=== PATIENT | female | born 1935 | race Hispanic/Latino ===

== ENCOUNTER 2019-06-15 19:46 | Inpatient (IN) | payer OTHER ==
[2019-06-15] MEDS ORDERED: NA CHLORIDE 0.9% 1,000 ML ONE (21:54)
[2019-06-15] MEDS ORDERED: FAMOTIDINE 20 MG/2 ML VIAL IV ONE (21:54)
[2019-06-15] MEDS ORDERED: FENTANYL CITR 100 MCG/2 ML ONE (21:54)
[2019-06-15] MEDS ORDERED: ONDANSETRON 4 MG/2 ML VIAL ONE (21:54)
[2019-06-15 22:15] LABS: Absolute Lymphocytes (CBC) 0.8 K/uL (0.7-4.9); Basophils % 0.2 % (0-1.3); Hematocrit 37.8 % (36.0-45.0); Lymphocytes % 4.6 % (15.3-44.8); MPV 12.6 fL (7.6-11.3); Protime INR 1.19
[2019-06-15 22:27] LABS: Albumin 3.1 g/dL (3.4-5.0); Bilirubin Direct 0.2 mg/dL (0-0.2); Bilirubin Total 0.6 mg/dL (0.2-1.0); Magnesium 1.9 mg/dL (1.8-2.4); Potassium 4.6 mmol/L (3.5-5.1); Troponin (Emerg Dept Use Only) 0.07 ng/mL (0.0-0.045)
[2019-06-15 22:53] LABS: Blood Morphology Comment NOT SEEN (NOT SEEN); Platelet Estimate ADEQ; Urine White Blood Cell Casts OK
--- NOTE | 2019-06-15 22:56 | EDPHYS ---
Physician Documentation [facility] Name: Kayleigh Cooney Age: 84 yrs Sex: Female : 1935 Arrival Date: 06/15/2019 Time: 19:[address] Private MD: DONA Physician Narendra Guajardo HPI: 06/15 21:14 This 84 yrs old Female presents to ER via Ambulatory with complaints of shadia Nausea/Vomiting, Stiff Neck. 21:14 The patient presents to the emergency department with nausea, vomiting, diarrhea, shadia abdominal pain, of the right upper quadrant, left upper quadrant, right lower quadrant and left lower quadrant. Onset: The symptoms/episode began/occurred 2 day(s) ago. Possible causes: unknown. The symptoms are aggravated by nothing. The symptoms are alleviated by nothing. Associated signs and symptoms: Pertinent positives: abdominal pain, diarrhea, fever, nausea, vomiting. Severity of symptoms: At their worst the symptoms were mild in the emergency department the symptoms are unchanged. The patient has not experienced similar symptoms in the past. Historical: - Allergies: 20:20 No Known Allergies; aj1 - Home Meds: 20:20 None [Active]; aj1 - PMHx: 20:20 Diverticulitis; aj1 - Immunization history:: Flu vaccine is up to date. - Social history:: Smoking status: Patient/guardian denies using tobacco. - Ebola Screening: : Patient denies travel to an Ebola-affected area in the 21 days before illness onset. - Family history:: not pertinent. ROS: 21:14 Constitutional: Negative for fever, chills, and weight loss, Eyes: Negative for injury, shadia pain, redness, and discharge, ENT: Negative for injury, pain, and discharge, Neck: Negative for injury, pain, and swelling, Cardiovascular: Negative for chest pain, palpitations, and edema, Respiratory: Negative for shortness of breath, cough, wheezing, and pleuritic chest pain, Back: Negative for injury and pain, : Negative for injury, bleeding, discharge, and swelling, MS/Extremity: Negative for injury and deformity, Skin: Negative for injury, rash, and discoloration, Neuro: Negative for headache, weakness, numbness, tingling, and seizure, Psych: Negative for depression, anxiety, suicide ideation, homicidal ideation, and hallucinations, Allergy/Immunology: Negative for hives, rash, and allergies, Endocrine: Negative for neck swelling, polydipsia, polyuria, polyphagia, and marked weight changes, Hematologic/Lymphatic: Negative for swollen nodes, abnormal bleeding, and unusual bruising. 21:14 Abdomen/GI: Positive for abdominal pain, nausea, vomiting, diarrhea. Exam: 21:14 Constitutional: This is a well developed, well nourished patient who is awake, alert, shadia and in no acute distress. Head/Face: Normocephalic, atraumatic. Eyes: Pupils equal round and reactive to light, extra-ocular motions intact. Lids and lashes normal. Conjunctiva and sclera are non-icteric and not injected. Cornea within normal limits. Periorbital areas with no swelling, redness, or edema. ENT: Nares patent. No nasal discharge, no septal abnormalities noted. Tympanic membranes are normal and external auditory canals are clear. Oropharynx with no redness, swelling, or masses, exudates, or evidence of obstruction, uvula midline. Mucous membranes moist. Neck: Trachea midline, no thyromegaly or masses palpated, and no cervical lymphadenopathy. Supple, full range of motion without nuchal rigidity, or vertebral point tenderness. No Meningismus. Chest/axilla: Normal chest wall appearance and motion. Nontender with no deformity. No lesions are appreciated. Cardiovascular: Regular rate and rhythm with a normal S1 and S2. No gallops, murmurs, or rubs. Normal PMI, no JVD. No pulse deficits. Respiratory: Lungs have equal breath sounds bilaterally, clear to auscultation and percussion. No rales, rhonchi or wheezes noted. No increased work of breathing, no retractions or nasal flaring. Abdomen/GI: Soft, non-tender, with normal bowel sounds. No distension or tympany. No guarding or rebound. No evidence of tenderness throughout. Back: No spinal tenderness. No costovertebral tenderness. Full range of motion. Skin: Warm, dry with normal turgor. Normal color with no rashes, no lesions, and no evidence of cellulitis. MS/ Extremity: Pulses equal, no cyanosis. Neurovascular intact. Full, normal range of motion. Neuro: Awake and alert, GCS 15, oriented to person, place, time, and situation. Cranial nerves II-XII grossly intact. Motor strength 5/5 in all extremities. Sensory grossly intact. Cerebellar exam normal. Normal gait. Psych: Awake, alert, with orientation to person, place and time. Behavior, mood, and affect are within normal limits. 21:16 Neck: ROM/movement: is normal, no acute changes, Meningeal signs: are not present, [facility] Kernig's sign is negative, Brudzinski's sign is negative. Vital Signs: 20:20 BP 160 / 57; Pulse 103; Resp 18; Temp 98.4; Pulse Ox 96% on R/A; Weight 74.39 kg (R); [facility] Height 5 ft. 0 in. (152.40 cm) (R); Pain 8/10; 21:20 BP 160 / 57; Pulse 99; Resp 18; Pulse Ox 95% on R/A; 1 22:20 BP 154 / 54; Pulse 101; Resp 18; Pulse Ox 96% on R/A; [facility] 23:20 BP 158 / 57; Pulse 94; Resp 18; Pulse Ox 95% on R/A; [facility] 06/16 00:01 BP 115 / 57; Pulse 83; Resp 18; Pulse Ox 95% on R/A; [facility] 01:12 BP 112 / 87; Pulse 88; Resp 20; Temp 98.2; Pulse Ox 97% on R/A; [facility] 06/15 20:20 Body Mass Index 32.03 (74.39 kg, 152.40 cm) [facility] MDM: 06/15 20:[address] [facility] 21:16 Data reviewed: vital signs, nurses notes, lab test result(s), EKG, radiologic studies, [facility] CT scan, plain films. 06/15 21:13 Order name: Basic Metabolic Panel; Complete Time: 22:44 [facility] 06/15 21:13 Order name: CBC with Diff; Complete Time: 23:38 [facility] 06/15 21:13 Order name: LFT's; Complete Time: 22:44 [facility] 06/15 21:13 Order name: Magnesium; Complete Time: 22:44 [facility] 06/15 21:13 Order name: NT PRO-BNP; Complete Time: 22:44 [facility] 06/15 21:13 Order name: PT-INR; Complete Time: 22:44 [facility] 06/15 21:13 Order name: Troponin (emerg Dept Use Only); Complete Time: 22:44 [facility] 06/15 21:13 Order name: Lipase; Complete Time: 22:44 [facility] 06/15 21:13 Order name: Urine Culture [facility] 06/15 21:13 Order name: Procalcitonin; Complete Time: 23:38 [facility] 06/15 21:13 Order name: Lactate; Complete Time: 22:44 [facility] 06/15 21:13 Order name: Blood Culture Adult (2) [facility] 06/15 21:14 Order name: Stool Culture [facility] 06/15 21:14 Order name: Fecal Leukocyte Stain [facility] 06/15 21:13 Order name: XRAY Chest (1 view) [facility] 06/15 22:50 Order name: CBC Smear Scan; Complete Time: 23:38 [facility] 06/15 23:31 Order name: Comprehensive Metabolic Panel [facility] 06/15 23:31 Order name: Comprehensive Metabolic Panel [facility] 06/15 23:31 Order name: Lactate [facility] 06/15 23:31 Order name: Lactate [facility] 06/15 23:31 Order name: Magnesium [facility] 06/15 23:31 Order name: Magnesium [facility] 06/15 23:32 Order name: Phosphorus [facility] 06/15 23:32 Order name: Phosphorus [facility] 06/15 23:32 Order name: Troponin I [facility] 06/15 23:32 Order name: Troponin I [facility] 06/15 23:32 Order name: Troponin I [facility] 06/15 23:33 Order name: Urinalysis [facility] 06/15 23:33 Order name: CBC with Automated Diff [facility] 06/15 23:33 Order name: CBC with Automated Diff [facility] 06/15 21:13 Order name: EKG; Complete Time: 21:15 [facility] 06/15 21:13 Order name: Cardiac monitoring; Complete Time: 23:38 [facility] 06/15 21:13 Order name: EKG - Nurse/Tech; Complete Time: 23:38 [facility] 06/15 21:13 Order name: IV Saline Lock; Complete Time: 22:02 [facility] 06/15 21:13 Order name: Labs collected and sent; Complete Time: 22:02 [facility] 06/15 21:13 Order name: O2 Per Protocol; Complete Time: 22:02 [facility] 06/15 21:13 Order name: O2 Sat Monitoring; Complete Time: 22:02 [facility] 06/15 22:34 Order name: Abdomen [facility] 06/15 23:31 Order name: NPO EDMS Administered Medications: 22:26 Drug: NS 0.9% 1000 ml Route: IV; Rate: 1 bolus; Site: left antecubital; mg2 23:39 Follow up: IV Status: Completed infusion; IV Intake: 1000ml aj 22:26 Drug: fentaNYL (PF) 25 mcg Route: IVP; Site: left antecubital; mg2 23:40 Follow up: Response: No adverse reaction; Pain is decreased; RASS: Alert and Calm (0) aj1 22:26 Drug: Zofran 4 mg Route: IVP; Site: left antecubital; mg2 23:40 Follow up: Response: No adverse reaction aj1 22:26 Drug: Pepcid 20 mg Route: IVP; Site: left antecubital; mg2 23:41 Follow up: Response: No adverse reaction aj1 23:37 Drug: Rocephin - (cefTRIAXone) 1 grams Route: IVPB; Infused Over: 30 mins; Site: left [facility] antecubital; 06/16 00:32 Follow up: IV Status: Completed infusion; IV Intake: 10ml [facility] 06/15 23:37 Drug: Cipro 400 mg Volume: 200 ml; Route: IVPB; Infused Over: 60 mins; Site: left [facility] antecubital; 06/16 00:33 Follow up: IV Status: Completed infusion; IV Intake: 200ml [facility] 06/15 23:38 Drug: Flagyl 500 mg Volume: 100 ml; Route: IVPB; Rate: 200 ml/hr; Infused Over: 30 aj1 mins; Site: left antecubital; 06/16 00:33 Follow up: IV Status: Completed infusion; IV Intake: 100ml [facility] 01:14 Not Given (Duplicate Order): fentaNYL (PF) 25 mcg IVP once; RASS on ADMIN: Combtv4, aj1 Very Agttd3, Agttd2, Rstlss1, AlertClm0, Drwsy-1, Lt Sdtn-2, Mod Sdtn-3, Dp Sdtn-4, UnArsble-5 Disposition: 06/15/19 22:55 Hospitalization ordered by Belen Smith for Inpatient Admission. Preliminary diagnosis are Vomiting, Diarrhea, unspecified, Abdominal tenderness, Unspecified kidney failure, Elevated white blood cell count. - Bed requested for Telemetry/MedSurg (Inpatient). - Status is Inpatient Admission. aj1 - Condition is Fair. - Problem is new. - Symptoms have improved. UTI on Admission? No Signatures: Dispatcher [employer] [facility] Adeline Franks RN RN aj1 Narendra Guajardo MD MD cha Garcia, Cindy, GABI RN Pedrito Jalloh RN RN mg2 Corrections: (The following items were deleted from the chart) 06/15 22:34 21:15 Abdomen Pelvis W Con+CT.RAD.BRZ ordered. [facility] 23:39 22:55 Hospitalization Ordered by Belen Smith MD for Inpatient Admission. Preliminary diagnosis is Vomiting; Diarrhea, unspecified; Abdominal tenderness; Unspecified kidney failure; Elevated white blood cell count. Bed requested for Telemetry/MedSurg (Inpatient). Status is Inpatient Admission. Condition is Fair. Problem is new. Symptoms have improved. UTI on Admission? No. shadia 06/16 01:15 06/15 23:39 06/15/2019 22:55 Hospitalization Ordered by Belen Smith MD for Inpatient aj1 Admission. Preliminary diagnosis is Vomiting; Diarrhea, unspecified; Abdominal tenderness; Unspecified kidney failure; Elevated white blood cell count. Bed requested for Telemetry/MedSurg (Inpatient). Status is Inpatient Admission. Condition is Fair. Problem is new. Symptoms have improved. UTI on Admission? No. cg
--- NOTE | 2019-06-15 22:56 | ER ---
Nurse's Notes [facility] Name: Kayleigh Cooney Age: 84 yrs Sex: Female : 1935 Arrival Date: 06/15/2019 Time: 19:[address] Private MD: Diagnosis: Vomiting;Diarrhea, unspecified;Abdominal tenderness;Unspecified kidney failure;Elevated white blood cell count Presentation: 06/15 20:18 Presenting complaint: Patient states: Nausea, vomiting, diarrhea, and neck pain since aj1 yesterday. Denies fever. Denies abdominal or back pain. Denies recent injury. Transition of care: patient was not received from another setting of care. Onset of symptoms was June 14, 2019. Risk Assessment: Do you want to hurt yourself or someone else? Patient reports no desire to harm self or others. Initial Sepsis Screen: Does the patient meet any 2 criteria? No. Patient's initial sepsis screen is negative. Does the patient have a suspected source of infection? No. Patient's initial sepsis screen is negative. Care prior to arrival: None. 20:18 Method Of Arrival: Ambulatory aj1 20:18 Acuity: WON 3 aj1 Triage Assessment: 20:20 General: Appears in no apparent distress. uncomfortable, Behavior is calm, cooperative, aj1 appropriate for age. Pain: Complains of pain in neck. GI: Reports diarrhea, nausea, vomiting. Historical: - Allergies: 20:20 No Known Allergies; aj1 - Home Meds: 20:20 None [Active]; aj1 - PMHx: 20:20 Diverticulitis; aj1 - Immunization history:: Flu vaccine is up to date. - Social history:: Smoking status: Patient/guardian denies using tobacco. - Ebola Screening: : Patient denies travel to an Ebola-affected area in the 21 days before illness onset. - Family history:: not pertinent. Screenin:22 Abuse screen: Denies threats or abuse. Denies injuries from another. Nutritional aj1 screening: No deficits noted. Tuberculosis screening: No symptoms or risk factors identified. 06/16 00:00 Fall Risk No fall in past 12 months (0 pts). No secondary diagnosis (0 pts). IV access aj1 (20 points). Ambulatory Aid- None/Bed Rest/Nurse Assist (0 pts). Gait- Weak (10 pts.). Mental Status- Oriented to own ability (0 pts). Total Valdes Fall Scale indicates Low Risk Score (25-44 pts). Fall prevention measures have been instituted. Family Present and informed to notify staff if they need to leave bedside As available Patient and Family Educated on Fall Prevention Program and strategies. Assessment: 06/15 20:22 General: Appears in no apparent distress. uncomfortable, Behavior is calm, cooperative, aj1 appropriate for age. Pain: Complains of pain in neck Pain does not radiate. Pain currently is 8 out of 10 on a pain scale. Quality of pain is described as aching, Pain began 1 day ago. Is intermittent, Alleviated by nothing. Aggravated by nothing. Neuro: Level of Consciousness is awake, alert, obeys commands, Oriented to person, place, time, situation, Speech is normal, Facial symmetry appears normal, Denies headache. Cardiovascular: Patient's skin is warm and dry. Respiratory: Airway is patent Respiratory effort is even, unlabored, Respiratory pattern is regular, symmetrical. GI: Abdomen is non-distended, Reports diarrhea, nausea, vomiting, Patient currently denies abdominal pain. : No signs and/or symptoms were reported regarding the genitourinary system. EENT: Derm: No signs and/or symptoms reported regarding the dermatologic system. Skin is pink, warm \T\ dry. normal. Musculoskeletal: No signs and/or symptoms reported regarding the musculoskeletal system. Circulation, motion, and sensation intact. 21:20 Reassessment: Patient appears in no apparent distress at this time. No changes from aj1 previously documented assessment. Patient and/or family updated on plan of care and expected duration. Pain level reassessed. Patient is alert, oriented x 3, equal unlabored respirations, skin warm/dry/pink. 22:20 Reassessment: Patient and/or family updated on plan of care and expected duration. Pain aj1 level reassessed. General: Appears in no apparent distress. comfortable, Behavior is calm, cooperative, appropriate for age. Neuro: Level of Consciousness is awake, alert, obeys commands, Speech is normal, Facial symmetry appears normal. Cardiovascular: Patient's skin is warm and dry. Rhythm is regular. Respiratory: Airway is patent Respiratory effort is even, unlabored, Respiratory pattern is regular, symmetrical. Derm: No signs and/or symptoms reported regarding the dermatologic system. Skin is pink, warm \T\ dry. normal. Musculoskeletal: No signs and/or symptoms reported regarding the musculoskeletal system. Circulation, motion, and sensation intact. 23:20 Reassessment: Patient appears in no apparent distress at this time. No changes from [facility] previously documented assessment. Patient and/or family updated on plan of care and expected duration. Pain level reassessed. Patient is alert, oriented x 3, equal unlabored respirations, skin warm/dry/pink. 06/16 00:05 Reassessment: Receiving nurse Marianela, is unable to take report at this time. Will call [facility] back. 00:20 Reassessment: Patient appears in no apparent distress at this time. No changes from [facility] previously documented assessment. Patient and/or family updated on plan of care and expected duration. Pain level reassessed. Patient is alert, oriented x 3, equal unlabored respirations, skin warm/dry/pink. 01:12 Reassessment: Patient appears in no apparent distress at this time. No changes from [facility] previously documented assessment. Patient and/or family updated on plan of care and expected duration. Pain level reassessed. Patient is alert, oriented x 3, equal unlabored respirations, skin warm/dry/pink. Vital Signs: 06/15 20:20 BP 160 / 57; Pulse 103; Resp 18; Temp 98.4; Pulse Ox 96% on R/A; Weight 74.39 kg (R); [facility] Height 5 ft. 0 in. (152.40 cm) (R); Pain 8/10; 21:20 BP 160 / 57; Pulse 99; Resp 18; Pulse Ox 95% on R/A; aj1 22:20 BP 154 / 54; Pulse 101; Resp 18; Pulse Ox 96% on R/A; aj1 23:20 BP 158 / 57; Pulse 94; Resp 18; Pulse Ox 95% on R/A; 1 06/16 00:01 BP 115 / 57; Pulse 83; Resp 18; Pulse Ox 95% on R/A; [facility] 01:12 BP 112 / 87; Pulse 88; Resp 20; Temp 98.2; Pulse Ox 97% on R/A; [facility] 06/15 20:20 Body Mass Index 32.03 (74.39 kg, 152.40 cm) [facility] ED Course: 06/15 19:51 Patient arrived in ED. cl3 20:17 Adeline Franks, RN is Primary Nurse. aj1 20:19 Triage completed. aj1 20:20 Arm band placed on. aj1 20:22 Patient has correct armband on for positive identification. Bed in low position. Call aj1 light in reach. 20:22 No provider procedures requiring assistance completed. aj1 20:47 Narendra Guajardo MD is Attending Physician. shadia 21:25 Radiology exam delayed due to lab results not completed at this time. (BUN/Creatinine). nj 21:53 XRAY Chest (1 view) In Process Unspecified. EDMS 21:55 Initial lab(s) drawn, by az, sent to lab. First set of blood cultures drawn LAC jp3 X-ray(s) taken. Inserted saline lock: 20 gauge in left antecubital area, using aseptic technique. Blood collected. 21:59 Patient maintains SpO2 saturation greater than 95% on room air. jp3 22:15 Second set of blood cultures drawn Right Hand. jp3 22:37 hot roll inspector on. Pulse ox on. NIBP on. jp3 22:37 EKG done, by ED staff, reviewed by Narendra Guajardo MD. jp3 22:53 Belen Smith MD is Hospitalizing Provider. [facility] 22:55 Abdomen In Process Unspecified. EDMS 06/16 00:01 Patient admitted, IV remains in place. aj1 Administered Medications: 06/15 22:26 Drug: NS 0.9% 1000 ml Route: IV; Rate: 1 bolus; Site: left antecubital; mg2 23:39 Follow up: IV Status: Completed infusion; IV Intake: 1000ml aj1 22:26 Drug: fentaNYL (PF) 25 mcg Route: IVP; Site: left antecubital; mg2 23:40 Follow up: Response: No adverse reaction; Pain is decreased; RASS: Alert and Calm (0) aj1 22:26 Drug: Zofran 4 mg Route: IVP; Site: left antecubital; mg2 23:40 Follow up: Response: No adverse reaction aj1 22:26 Drug: Pepcid 20 mg Route: IVP; Site: left antecubital; mg2 23:41 Follow up: Response: No adverse reaction aj1 23:37 Drug: Rocephin - (cefTRIAXone) 1 grams Route: IVPB; Infused Over: 30 mins; Site: left aj1 antecubital; 06/16 00:32 Follow up: IV Status: Completed infusion; IV Intake: 10ml [facility] 06/15 23:37 Drug: Cipro 400 mg Volume: 200 ml; Route: IVPB; Infused Over: 60 mins; Site: left [facility] antecubital; 06/16 00:33 Follow up: IV Status: Completed infusion; IV Intake: 200ml [facility] 06/15 23:38 Drug: Flagyl 500 mg Volume: 100 ml; Route: IVPB; Rate: 200 ml/hr; Infused Over: 30 aj1 mins; Site: left antecubital; 06/16 00:33 Follow up: IV Status: Completed infusion; IV Intake: 100ml [facility] 01:14 Not Given (Duplicate Order): fentaNYL (PF) 25 mcg IVP once; RASS on ADMIN: Combtv4, aj1 Very Agttd3, Agttd2, Rstlss1, AlertClm0, Drwsy-1, Lt Sdtn-2, Mod Sdtn-3, Dp Sdtn-4, UnArsble-5 Intake: 06/15 23:39 IV: 1000ml; Total: 1000ml. [facility] 06/16 00:32 IV: 10ml; Total: 1010ml. 00:33 IV: 100ml; Total: 1110ml. 00:33 IV: 200ml; Total: 1310ml. aj Outcome: 06/15 22:55 Decision to Hospitalize by Provider. [facility] 06/16 01:13 Admitted to Tele accompanied by tech, via wheelchair, with chart, Report called to henry Bear RN Condition: good Discharge instructions given to patient, family, Instructed on the need for admit, Demonstrated understanding of instructions. 01:[address] [facility] Signatures: Dispatcher [employer] Adeline Ohara RN RN aj1 Anderson, Corey, MD MD cha Jordan, Nathan nj Gardose, Michele, RN RN mg2 Pisarski, Jacob jp3 Lewis, Charde cl3
[2019-06-15] MEDS ORDERED: ALPRAZOLAM 0.25 MG TABLET PO PRN (23:26)
[2019-06-15] MEDS ORDERED: ONDANSETRON 4 MG/2 ML VIAL IV PRN (23:26)
[2019-06-15] MEDS ORDERED: CEFTRIAXONE/SWI 1gm 1 GM/10 ML SYR ONE (23:29)
[2019-06-15] MEDS ORDERED: METRONIDAZOLE 500mg IVPB 500 MG/100 ML BAG IV ONE (23:29)
[2019-06-15] MEDS ORDERED: CIPROFLOXACIN 400mg IV 400 MG/200 ML BAG IV ONE (23:29)
[2019-06-15] MEDS ORDERED: Levofloxacin500mg IV 500 MG/100 ML BAG IV SCH (23:45)
[2019-06-16] MEDS: METRONIDAZOLE 500mg IVPB 500 MG/100 ML BAG IV SCH ×2 (01:00→08:00)
[2019-06-16] MEDS: NA CHLORIDE 0.9% 1,000 ML IV SCH ×3 (02:23→23:46)
[2019-06-16 02:29] VITALS: BMI 32.0
[2019-06-16 02:37] LABS: Urine Appearance CLEAR; Urine Bilirubin NEGATIVE (NEG); Urine Blood 1+ (NEG); Urine Color YELLOW; Urine Glucose NEGATIVE (NEG); Urine Protein 2+ (NEG); Urine Specific Gravity <=1.005 (1.005-1.030); Urine Urobilinogen 0.2 mg/dL (0.2-1.0)
[2019-06-16 02:57] LABS: Urine Microscopic Reflex ORDER UMIC
[2019-06-16 03:42] LABS: Urine Bacteria 20-50 /HPF (<20); Urine Culture Reflex Order NOT NEEDED
[2019-06-16 06:30] LABS: Absolute Lymphocytes (CBC) 1.8 K/uL (0.7-4.9); Basophils % 0.3 % (0-1.3); Lymphocytes % 10.6 % (15.3-44.8); MPV 12.8 fL (7.6-11.3); RBC Red Blood Cell Count 3.43 M/uL (3.86-4.86)
[2019-06-16 06:48] LABS: Albumin 2.6 g/dL (3.4-5.0); Bilirubin Total 0.4 mg/dL (0.2-1.0); Magnesium 2.1 mg/dL (1.8-2.4); Potassium 4.7 mmol/L (3.5-5.1); Protein, Total 6.2 g/dL (6.4-8.2)
[2019-06-16] MEDS: ENOXAPARIN 30 MG/0.3 ML SQ SCH (08:06)
--- NOTE | 2019-06-16 08:14 | RAD REPORT ---
EXAM DESCRIPTION: Rojas Single View06/15/2019 9:53 pm CLINICAL HISTORY: Cough COMPARISON: none FINDINGS: The lungs appear clear of acute infiltrate. The heart is normal size . The upper lobe vessels are prominent which may indicate pulmonary venous hypertension
[2019-06-16] MEDS: ACETAMINOPHEN 500 MG TAB PO PRN ×3 (08:23→17:40)
--- NOTE | 2019-06-16 11:26 | RAD REPORT ---
EXAM DESCRIPTION: CT - Abdomen Pelvis Wo Contrast - 06/16/2019 1:35 am CLINICAL HISTORY: Abdominal pain. COMPARISON: None. TECHNIQUE: CT scan of the abdomen and pelvis was performed without IV contrast. This exam was perfor med according to our departmental dose-optimization program, which includes automated exposure contro l, adjustment of the mA and/or kV according to patient size and/or use of iterative reconstruction te chnique. FINDINGS: The lung bases are clear. No pleural or pericardial effusions. There has been a prior chol ecystectomy. Liver, spleen, pancreas, adrenal glands, kidneys, and pelvic organs are unremarkable. No hydronephrosis or urinary stones are seen. No small bowel obstruction. The appendix is not seen. No evidence of acute diverticulitis. No adenopa thy, free fluid, or free air is identified. The aorta is normal caliber and contains atherosclerotic calcifications. There are mild degenerative changes of the spine. No abnormal body wall hernia. IMPRESSION: No acute abdominal or pelvic findings. Electronically signed by: Isma Jacinto MD 06/15/2019 11:11 PM [employer] Due to temporary technical issues with the PACS/Fluency reporting system, reports are being signed by the in house radiologist as a courtesy to ensure prompt reporting. The interpreting radiologist is f ully responsible for the content of the report.
--- NOTE | 2019-06-16 11:58 | EKG ---
Test Date: 2019-06-15 Test Time: 22:34:14 [place] Room Operator: ERIN MEASUREMENT RESULTS: Intervals: Rate: 82 ID: [id number] QRSD: 128 QT: 408 QTc: 476 [place]: P: 26 ID: [id number] QRS: -59 T: 18 INTERPRETIVE STATEMENTS: Normal sinus rhythm Right bundle branch block Left anterior fascicular block Bifascicular block Minimal voltage criteria for LVH, may be normal variant Abnormal ECG Compared to ECG 03/29/2002 09:23:00 Right bundle-branch block now present Left anterior fascicular block now present Bifascicular block now present Left ventricular hypertrophy now present Electronically Signed On 06-16-19 11:56:43 HEPATOLOGY PHYSICIAN by Noé Escalante
[2019-06-16] MEDS ORDERED: MORPHINE 4 MG/ML SYR ONE (15:03)
--- NOTE | 2019-06-16 16:07 | P.HP ---
Certification for Inpatient Patient admitted to: Inpatient With expected LOS: >2 Midnights Patient will require the following post-hospital care: None Practitioner: I am a practitioner with admitting privileges, knowledge of patient current condition, hospital course, and medical plan of care. Services: Services provided to patient in accordance with Admission requirements found in Title 42 Section 412.3 of the Code of Federal Regulations Patient History Date of Service: 06/15/19 Reason for admission: Abdominal pain; nausea and vomiting; diarrhea; UTI History of Present Illness: Patient is a 84-year-old female who comes in with abdominal pain. She has also been having nausea and vomiting and diarrhea. She had similar complaints a few years ago and at that time she was found to have diverticulitis. However , she states that her abdominal pain this time is much different. It is not as severe and is mainly in the epigastric region. She has also had palpitations. In the ER, she was found to have a urinary tract infection as well. CT scan of the abdomen and pelvis did not reveal any pathology. Patient also has significantly elevated procalcitonin level. Patient will be admitted to the hospital for further evaluation. Allergies No Known Allergies Allergy (Verified 06/16/19 01:27) Home Medications: Amlodipine Besylate 5 mg PO DAILY 06/16/19 Atenolol [Tenormin*] 25 mg PO DAILY 06/16/19 Spironolactone 25 mg PO DAILY 06/16/19 - Past Medical/Surgical History Has patient received pneumonia vaccine in the past: Yes Diabetic: No -: Diverticulitis -: Hypertension -: Partial colectomy - Family History Father Family History: Reviewed- Non-Contributory - Social History Smoking Status: Never smoker Alcohol use: No CD- Drugs: No Caffeine use: No Place of Residence: Home Review of Systems 10-point ROS is otherwise unremarkable Physical Examination - Vital Signs Temperature: 98.1 F Blood Pressure: 129/60 Pulse: 71 Respirations: 20 Pulse Ox (%): 94 - Physical Exam General: Alert, In no apparent distress, Oriented x3 HEENT: Atraumatic, PERRLA, Mucous membr. moist/pink, EOMI, Sclerae nonicteric Neck: Supple, 2+ carotid pulse no bruit, No LAD, Without JVD or thyroid abnormality Respiratory: Clear to auscultation bilaterally, Normal air movement Cardiovascular: Regular rate/rhythm, Normal S1 S2, No murmurs Gastrointestinal: Normal bowel sounds, Soft and benign, Non-distended, Tenderness Musculoskeletal: No clubbing, No swelling, No tenderness Integumentary: No rashes Neurological: Normal gait, Normal speech, Normal strength at 5/5 x4 extr, Normal tone, Sensation intact, Cranial nerves 3-12 intact, Normal affect Lymphatics: No axilla or inguinal lymphadenopathy - Studies Laboratory Data (last 24 hrs) 06/15/19 21:55: PT 14.0 H, INR 1.19 06/15/19 21:55: WBC 17.1 H, Hgb 12.5, Hct 37.8, Plt Count 119 L 06/15/19 21:55: Sodium 135 L, Potassium 4.6, BUN 35 H, Creatinine 1.90 H, Glucose 84, Magnesium 1.9, Total Bilirubin 0.6, AST 16, ALT 17, Alkaline Phosphatase 77, Lipase 112 Assessment & Plan - Problems (Diagnosis) (1) Diverticulitis Current Visit: Yes Status: Acute (2) Viral gastroenteritis Current Visit: Yes Status: Acute (3) Sepsis Current Visit: Yes Status: Acute (4) UTI (urinary tract infection) Current Visit: Yes Status: Acute (5) Acute renal insufficiency Current Visit: Yes Status: Acute (6) Leukocytosis Current Visit: Yes Status: Acute - Plan Plan: 1. IV fluids and IV antibiotics 2. await cultures for stool and urine. 3. GI consultation As an outpatient for colonoscopy 4. Pain control 5. repeat procalcitonin level 6. Repeat abdominal film if pain worsens to rule out perforation 7. GI and DVT prophylaxis Discharge Plan: Home Plan to discharge in: Greater than 2 days - Advance Directives Does patient have a Living Will: No Does patient have a Durable POA for Healthcare: No - Code Status/Comfort Care Code Status Assessed: Yes Code Status: Full Code Critical Care: No Time Spent Managing PTS Care (In Minutes): 45
[2019-06-16] MEDS: atenoloL 25 MG TAB PO SCH (16:52)
[2019-06-16] MEDS ORDERED: METRONIDAZOLE 250mg IVPB 250 MG/50 ML BAG IV SCH (17:00)
[2019-06-16] MEDS: METRONIDAZOLE 250mg IVPB 250 MG/50 ML BAG IV SCH ×2 (17:30→23:47)
[2019-06-16] MEDS: Levofloxacin 250mg IV 250 MG/50 ML BAG IV SCH (23:47)
[2019-06-17] MEDS: METRONIDAZOLE 250mg IVPB 250 MG/50 ML BAG IV SCH ×2 (05:02→11:01)
[2019-06-17 06:14] LABS: Absolute Lymphocytes (CBC) 1.3 K/uL (0.7-4.9); Basophils % 0.6 % (0-1.3); Hematocrit 33.5 % (36.0-45.0); Lymphocytes % 11.3 % (15.3-44.8); MPV 13.2 fL (7.6-11.3); RBC Red Blood Cell Count 3.44 M/uL (3.86-4.86)
[2019-06-17 06:40] LABS: Potassium 4.5 mmol/L (3.5-5.1)
[2019-06-17] MEDS: atenoloL 25 MG TAB PO SCH (08:17)
[2019-06-17] MEDS: AMLODIPINE 5 MG TAB PO SCH (08:18)
[2019-06-17] MEDS: ENOXAPARIN 30 MG/0.3 ML SQ SCH (08:19)
[2019-06-17] MEDS ORDERED: SPIRONOLACTONE 25 MG TABLET PO SCH (09:00)
[2019-06-17 09:52] LABS: Blood Morphology Comment NOT SEEN (NOT SEEN); Platelet Estimate DECR; Platelets, Giant FEW
--- NOTE | 2019-06-17 10:39 | P.PN ---
Subjective Date of Service: 06/16/19 Chief Complaint: Abdominal pain; nausea and vomiting; diarrhea; UTI Patient's labs revealed bacteremia. Patient has gram-negative rods growing in her blood. Most likely source is the urine. Awaiting blood cultures to return. Patient is feeling better but still having some pain in her lower back and her lower abdomen. CT scan did not reveal any pathology. Continue to watch over the next 24-48 hrs. Review of Systems 10-point ROS is otherwise unremarkable Physical Examination - Vital Signs Temperature: 98 F Blood Pressure: 134/51 Pulse: 91 Respirations: 18 Pulse Ox (%): 97 - Physical Exam General: Alert, In no apparent distress, Oriented x3 Respiratory: Clear to auscultation bilaterally, Normal air movement Cardiovascular: Regular rate/rhythm, Normal S1 S2 Gastrointestinal: Normal bowel sounds, Soft and benign, Non-distended, Tenderness Musculoskeletal: No clubbing, No swelling, No tenderness Integumentary: No rashes Neurological: Normal speech, Normal tone, Normal affect Lymphatics: No axilla or inguinal lymphadenopathy - Studies Medications List Reviewed: Yes Assessment & Plan - Problems (Diagnosis) (1) Diverticulitis Current Visit: Yes Status: Acute (2) Viral gastroenteritis Current Visit: Yes Status: Acute (3) Sepsis Current Visit: Yes Status: Acute (4) UTI (urinary tract infection) Current Visit: Yes Status: Acute (5) Acute renal insufficiency Current Visit: Yes Status: Acute (6) Leukocytosis Current Visit: Yes Status: Acute - Plan Plan: 1. IV fluids and IV antibiotics 2. await cultures for stool and urine. Blood cultures with gram-negative rods 3. GI consultation as an outpatient for colonoscopy 4. Pain control 5. repeat procalcitonin level 6. GI and DVT prophylaxis Discharge Plan: Home Plan to discharge in: Greater than 2 days - Advance Directives Does patient have a Living Will: No Does patient have a Durable POA for Healthcare: No - Code Status/Comfort Care Code Status: Full Code Critical Care: No Time Spent Managing PTS Care (In Minutes): 45
[2019-06-17 13:13] LABS: Urine Appearance CLEAR; Urine Bilirubin NEGATIVE (NEG); Urine Blood NEGATIVE (NEG); Urine Color YELLOW; Urine Glucose NEGATIVE (NEG); Urine Protein 1+ (NEG); Urine Urobilinogen 0.2 mg/dL (0.2-1.0)
[2019-06-17 13:19] LABS: Urine Protein/Creatinine Ratio 0.98 ratio (<0.15)
[2019-06-17 13:38] LABS: C.diff Antigen/Toxin Ag pos : Tox neg (NEG : NEG)
[2019-06-17 13:47] LABS: Urine Microscopic Reflex ORDER UMIC
[2019-06-17 13:49] LABS: Urine Bacteria <20 /HPF (<20); Urine Culture Reflex Order NOT NEEDED; Urine RBC <5 /HPF (NONE SEEN)
[2019-06-17] MEDS: NA CHLORIDE 0.9% 1,000 ML IV SCH (14:36)
[2019-06-17] MEDS: METRONIDAZOLE 500mg IVPB 500 MG/100 ML BAG IV SCH ×2 (17:13→23:49)
--- NOTE | 2019-06-17 17:25 | PN ---
Subjective: Currently patient lying in bed. She looks comfortable. She has no chest pain. No abdo william pain. She is able to eat her meals. continue to have diarrhea, but it is slowing down. Review of Systems: Otherwise negative. Physical Examination: Vital Signs: Blood pressure 130/51, respiratory rate 18, pulse 91, temperature 98. General: The patient is alert and oriented x3. Does not look in any distress. HEENT: Atraumatic, normocephalic. PERRLA. Oral mucosa is moist. Neck: Supple. No JVD. No carotid bruits. Chest: Clear to auscultation. Good air entry. Heart: Regular rate and S1, S2 normal. No gallop or murmur. Abdomen: Soft, nontender. No masses. No bruits. Positive bowel sounds. Extremities: No clubbing, cyanosis, or edema. No calf tenderness. Neurologic: Grossly intact. Laboratory Data: Labs today showed CBC with hemoglobin 11.2, white blood cells 11.9, platelets 100. Chemistry within normal except for BUN of 25, creatinine of 1.57, GFR of 31. Procalcitonin at 27.39 . Urine culture showed between 10,000 and 100,000 colony, which is significant for mixed clare. Blo od cultures so far negative. Fecal stain still pending. C diff is pending. Assessment And Plan: 1.Abdominal pain most likely viral gastroenteritis. Diarrhea is subsiding. C diff is still pending . There was no fever or chills. The patient is tolerating the diet very well. 2.Sepsis with her cultures negative. The patient empirically on Flagyl and Levaquin. The creatinin e is still high for unknown reason. As cultures all negative and UA did not show any urinary tract i nfection. We will repeat UA again and urine culture. White blood cells went down from 17 to 11.9. 3.Renal insufficiency. . Appreciated Nephrology consult. Urine protein and creatinine a re pending. 4.Diarrhea, improving. C. diff is still pending. 5.Deep vein thrombosis prophylaxis due to Lovenox. 6.Physical therapy consult and DC home tomorrow if patient doing well. MT/MODL Voice ID: [id number] Report ID: [id number]
--- NOTE | 2019-06-17 18:06 | CON ---
Date of Consultation: 06/17/2019 Additional Consulting Physician: Harvey Gaspar DO. Reason For Consultation: Elevated BUN and creatinine, acidosis, electrolyte imbalance. History Of Present Illness: This is an 84-year-old female with significant past medical history of hypertension, hyperlipidemia. Patient came to the hospital complaining of nausea, vomiting, diarrhea for the last couple of weeks. Patient denied any fever, no chills. Patient primary workup showed diverticulitis. Patient admitted that she has been taking nonsteroidal for the last 2 weeks around 6-800 every other day. Patient denied any rashes. No recent antibiotic exposure. No IV contrast. Past Medical History: Include hypertension. Allergies: NO KNOWN DRUG ALLERGIES. Past Surgical History: Include partial colectomy. Family History: Positive for hypertension. Social History: Denies smoking. Denied alcohol. Denied drug abuse. Review of Systems: Head and Neck: No red eye. No ear pain. GI: Has nausea, vomiting. : No polyuria. No dysuria. No hematuria. [employer]ATOR: No vaginal discharge. Respiratory: No shortness of breath. Cardiovascular: Has no shortness of breath. Endocrine: No polydipsia. Skin: No rash. Physical Examination: Vital Signs: Blood pressure 123/48, pulse of 62, afebrile. Reviewing the blood pressure, patient does not have any low blood pressure. Chest: Clear to auscultation. Heart: S1, S2. Regular. Abdomen: Soft, nontender. Extremities: No edema. Neurological: Alert and oriented x3. No focal. Laboratory Data: H and H 11.2/33.5, platelet of 100. Upon admission, H and H 12.5/37.8. Sodium 140, potassium 4.5, bicarb 23, BUN 25, creatinine 1.5, trending down. GFR up to 31, calcium 8.7. Upon admission, her creatinine 1.9, GFR of 25. Procalcitonin 27. Urinalysis, WBC of 10. Current Medications: The patient on its include, 1. Levaquin 250. 2. Flagyl of 250 t.i.d. 3. Tylenol. 4. Alprazolam. 5. IV fluid. Assessment And Plan: 1. Acute kidney injury secondary to prerenal, obstructive uropathy has been ruled out by the CT. Kidney function improving. Mostly it is multifactorial secondary to prerenal/nonsteroidal use/spironolactone. On the recovery phase, I can continue hydration and we will monitor the patient. 2. Colitis. We will increase the Flagyl to 500 t.i.d. and we will continue Levaquin. We will follow up with the primary. Continue hydration. 3. Alkalosis contraction. Continue IV fluid. 4. Hypomagnesemia status post supplement. MATTHEW/RONAN Voice ID: [id number] Report ID: [id number] MTDD
[2019-06-17] MEDS: Levofloxacin 250mg IV 250 MG/50 ML BAG IV SCH (23:49)
[2019-06-18] MEDS ORDERED: VANCOMYCIN ORAL SOLN 250 MG/5 ML OSYR PO SCH (01:00)
[2019-06-18] MEDS: NA CHLORIDE 0.9% 1,000 ML IV SCH (03:47)
[2019-06-18 04:39] LABS: Albumin 2.6 g/dL (3.4-5.0); Phosphorus 2.5 mg/dL (2.5-4.9)
[2019-06-18] MEDS: METRONIDAZOLE 500mg IVPB 500 MG/100 ML BAG IV SCH (05:14)
[2019-06-18] MEDS: ENOXAPARIN 30 MG/0.3 ML SQ SCH (08:24)
[2019-06-18] MEDS: POTASS/SODIUM PHOSPHATE 1 PKT POWD.PACK PO SCH ×3 (08:24→10:25)
[2019-06-18] MEDS: AMLODIPINE 5 MG TAB PO SCH (08:31)
[2019-06-18] MEDS: atenoloL 25 MG TAB PO SCH (08:31)
[2019-06-18] MEDS: metroNIDAZOLE 500 MG TABLET PO SCH ×2 (14:17→20:40)
[2019-06-18] MEDS: levoFLOXacin 500 MG TAB PO SCH (14:18)
--- NOTE | 2019-06-18 17:23 | PN ---
Date of Progress Note: 06/18/2019 Subjective: Patient doing much better ambulating. Physical Examination: Vital Signs: Blood pressure 128/54, pulse of 63. Patient had good urine output voiding. Chest: Clear to auscultation. Heart: S1, S2 regular. Abdomen: Soft, nontender. Extremities: No edema. Laboratory Data: WBC 11.9, H and H 11.2/33.5, platelet of 100. Sodium 142, potassium 4, bicarb 24, BUN 20, creatinine down to 1.3, GFR of 39, calcium 8.2, phos 5.2, albumin 2.6, corrected calcium is 9 .2. PTH of 83. Procalcitonin was 27. Culture growing E coli sensitive to all antibiotic except amp icillin and Unasyn. Current Medications: The patient on include: 1.Flagyl. 2.Lovenox. 3.Norvasc. 4.Alprazolam. 5.Zofran. 6.Normal saline at 75 per hour. Assessment And Plan: 1.Acute kidney injury secondary to prerenal recover trending down to her baseline. 2.Colitis, responding to current treatment. Follow up with the primary. 3.Contraction alkalosis, resolved. DC IV fluid. 4.Hypomagnesemia, status post supplement, resolved. 5.Urinary tract infection. Resume Levaquin to continue for a week. DAMON Voice ID: [id number] Report ID: [id number]
[2019-06-19 05:19] LABS: Absolute Lymphocytes (CBC) 1.5 K/uL (0.7-4.9); Basophils % 0.8 % (0-1.3); Hematocrit 34.3 % (36.0-45.0); Lymphocytes % 16.6 % (15.3-44.8); RBC Red Blood Cell Count 3.64 M/uL (3.86-4.86)
[2019-06-19 05:33] LABS: Albumin 2.7 g/dL (3.4-5.0)
--- NOTE | 2019-06-19 08:15 | ECHO ---
HEIGHT: 5 ft 0 in WEIGHT: 164 lb 0 oz DATE OF STUDY: 06/16/[address]: Belen Smith MD 2-DIMENSIONAL: YES M.MODE: YES DOPPLER: YES COLOR FLOW: YES TDS: NO PORTABLE: NO DEFINITY: NO BUBBLE STUDY: NO DIAGNOSIS: ELEVATED TROPONIN CARDIAC HISTORY: CATHERIZATION: NO SURGERY: NO PROSTHETIC VALVE: NO PACEMAKER: NO MEASUREMENTS (cm) DIASTOLIC (NORMALS) SYSTOLIC (NORMALS) IVSd 1.1 (0.6-1.2) LA Diam 3.5 (1.9-4.0) LVEF 69% LVIDd 3.6 (3.5-5.7) LVIDs 2.2 (2.0-3.5) %FS 38% LVPWd 1.2 (0.6-1.2) Ao Diam 2.2 (2.0-3.7) 2 DIMENSIONAL ASSESSMENT: RIGHT ATRIUM: NORMAL LEFT ATRIUM: NORMAL RIGHT VENTRICLE: NORMAL LEFT VENTRICLE: NORMAL TRICUSPID VALVE: NORMAL MITRAL VALVE: MITRAL ANNULAR CALCIFICATION PULMONIC VALVE: NORMAL AORTIC VALVE: NORMAL PERICARDIAL EFFUSION: NONE AORTIC ROOT: NORMAL LEFT VENTRICULAR WALL MOTION: NORMAL DOPPLER/COLOR FLOW: NORMAL COMMENTS: MITRAL ANNULAR CALCIFICATION. NORMAL LEFT VENTRICULAR SIZE AND FUNCTION. NO WALL MOTION ABNORMALITY. NO EFFUSION. TECHNOLOGIST: Sudeep BRASHER
--- NOTE | 2019-06-19 08:45 | PN ---
Subjective: Currently, patient is lying in bed. She looks comfortable. She has no chest pain. No abdominal pain. She continued to have diarrhea. She is able to eat. She has a bowel movement this morning. came back positive . Review of Systems: Otherwise negative. Objective: Vital Signs: Blood pressure 115/71, respiratory rate 16, pulse 57, temperature _. General: She is alert and oriented x3. Does not look in any distress. HEENT: Atraumatic, normocephalic. PERRLA. Oral mucosa is moist. Neck: No JVD. No carotid bruits. Chest: Clear to auscultation. Good air entry. Heart: Regular rate and rhythm. S1, S2 normal. No gallop or murmur. Abdomen: Mild tenderness diffusely with no guarding or rebound. Positive bowel sounds. Extremities: No clubbing, cyanosis, or edema. No calf tenderness. Neurologic: Grossly intact. Cranial nerves . Laboratory Data: Today showed CBC pending. Chemistry showed within normal limits except for BUN of 20, creatinine of 1.31, GFR of 59 . Assessment And Plan: 1.Clostridium difficile colitis. Clostridium difficile was tested positive for , but the patient has a second bowel movement which improved with antibiotics, so I will stop Levaquin __ Flagyl 500 mg t.i.d. orally. If she continued to improve with pneumonia, we can discharge her on a course of Flagyl. 2.Suspected sepsis which is resolved. Her procalcitonin was high morning and repeat CBC. Again, patient has no fever. Blood culture was negative. 3.Renal insufficiency, continued to improve BUN down to 20, creatinine 1.3. Nephrology following. 4.Deep vein thrombosis prophylaxis with Lovenox. 5.Discharge back hopefully in a.m. if patient continued to improve. MT/MODL Voice ID: [id number] Report ID: [id number]
[2019-06-19] MEDS: atenoloL 25 MG TAB PO SCH (09:31)
[2019-06-19] MEDS: ENOXAPARIN 30 MG/0.3 ML SQ SCH (09:32)
[2019-06-19] MEDS: metroNIDAZOLE 500 MG TABLET PO SCH ×2 (09:32→14:00)
[2019-06-19] MEDS: levoFLOXacin 500 MG TAB PO SCH (09:32)
[2019-06-19] MEDS: AMLODIPINE 5 MG TAB PO SCH (09:37)
[2019-06-19 14:02] LABS: Platelet Estimate ADEQ
[2019-06-19 14:03] LABS: Anisocytosis 1+; Blood Morphology Comment NOTED (NOT SEEN); Platelets, Giant FEW
--- NOTE | 2019-06-19 14:55 | CON ---
History Of Present Illness: This is an 84-year-old female with significant history of diverticulitis , coming in with diarrhea, nausea, and vomiting. Patient feels much better. Currently on Levaquin a nd Flagyl for C diff. Patient denies any other problems. Past medical history includes diverticulit is, hypertension, partial colectomy. Patient also had bacteremia secondary to E coli, which is being treated with quinolones. Past Medical History: As per HPI. Social History: Nonsmoker, nondrinker. Family History: Noncontributory. Medications: Levaquin, Flagyl. See MAR for other medications. Allergies: NO KNOWN DRUG ALLERGIES. Review of Systems: 10-point review was performed. Physical Examination: General: This is an 84-year-old female, sitting in bed, not in any acute cardiopulmonary distress. Vital Signs: Temperature 98, pulse 56, respirations 16, blood pressure 149/63. HEENT: Unremarkable. Neck: Supple. Lungs: Fine crackles. Heart: S1, S2. Regular. Abdomen: Soft. Bowel sounds present. Extremities: No edema. Laboratory Data: Shows WBC 8.8, hemoglobin 12.1, platelets are 139. Chemistry shows sodium 141, pot assium 4, chloride 109, bicarb 27, BUN 15, creatinine 1.3, glucose is 91. Microdata shows patient pantoja s E coli bacteremia, blood cultures done on 06/15. Abdominal CT on 06/15 shows patient has no acute abdominal or pelvic findings. Chest x-ray, lungs are clear. Assessment And Plan: Bacteremia secondary to Escherichia coli in an 84-year-old female with history of diverticulitis. Leukocytosis is resolving. Patient is currently on Levaquin. Diarrhea has impro belle. We will recommend to start the patient on Suprax and vancomycin for a total of 14 days. Contin ue supportive care. Thank you, Dr. Dolan, for consult. NF/MODL Voice ID: [id number] Report ID: [id number]
--- NOTE | 2019-06-19 15:16 | RAD REPORT ---
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 No acute fracture, dislocation or AVN.
--- NOTE | 2019-06-19 15:20 | RAD REPORT ---
EXAM DESCRIPTION: RAD - Femur Left - 06/19/2019 2:51 pm CLINICAL HISTORY: pain left leg COMPARISON: Abdomen Pelvis Wo Contrast dated 06/15/2019 FINDINGS: No fracture or dislocation seen. If pain persists or progresses, consider MR imaging radha carr
[2019-06-19] MEDS: VANCOMYCIN ORAL SOLN 250 MG/5 ML OSYR PO SCH ×2 (16:54→16:57)
--- NOTE | 2019-06-19 20:07 | PN ---
Date of Progress Note: 06/19/2019 Subjective: Patient is seen and examined. Chart reviewed and case discussed with RN and Dr. Torres. Patient is still having significant amount of diarrhea , 4 episodes today. No further nausea. Patient is able to tolerate her diet. Medications: List reviewed. Code Status: Full. Physical Examination: Vital Signs: Temperature 98.2, heart rate 56, blood pressure 149/63, respirations 16, O2 96% on room air. General: Awake, alert, oriented x3. Elderly female, in some mild distress. CV: S1, S2. Regular rate and rhythm. Peripheral pulses present. Respiratory: Moving air well bilaterally. No wheezing or stridor. No use of accessory muscles. Gastrointestinal: Abdomen is soft. Mild tenderness to palpation in the left lower quadrant and epigastric region. No rebound or guarding. Positive bowel sounds. Extremities: No clubbing, cyanosis, or edema. Neurological: Cranial nerves 2 through 12 intact grossly. No focal neurological deficits. Speech is normal. Laboratory Data: Sodium 141, potassium 4, chloride 109, CO2 of 27, BUN 15, creatinine 1.33, glucose 91, calcium 9, phosphorus 3, albumin 2.7. Procalcitonin 5.68. WBC 8.8, H and H 12.1 and 34.3, platelets 139, neutrophils 64%. Blood cultures growing out E coli, 4/4 bottles. Urine culture, mixed clare. Stool culture; 3+ yeast, reduce fecal clare. No Salmonella, Shigella, or Campylobacter. Echocardiogram shows EF of 69%. Imaging Studies: Pelvis x-ray shows degenerative changes present in both hips. No acute fracture, dislocation or AVN. Femur x-ray shows no fracture, dislocation. Assessment: An 84-year-old female with: 1. Sepsis. secondary to cdiff and bacteremia. 2. Acute Clostridium difficile colitis. Patient is still having multiple loose bowel movements, not having good appetite. Continues to have abdominal tenderness and pain. We will start on probiotics. We will switch from Flagyl to oral vancomycin as first-line treatment. 3. Bacteremia secondary to Escherichia coli. We will continue on Levaquin. Procalcitonin is still elevated. White blood cell count now normalized, improving. Appreciate Dr. Torres's input. We will discharge on Suprax as an outpatient. 3. Renal insufficiency. Acute kidney injury. Kidney function still somewhat elevated, but improving likely due to prerenal azotemia. We will continue to monitor. 4. Obesity. BMI 32. 5. Essential hypertension, stable. We will continue home medications as appropriate. 6. Deep vein thrombosis prophylaxis addressed. Plan: Likely discharge in a.m. and set up home health. VEE Voice ID: [id number] Report ID: [id number] SHEILA
[2019-06-19] MEDS: LACTOBACILLUS/ACIDOPHILUS TAB PO SCH (21:55)
[2019-06-20] MEDS: VANCOMYCIN ORAL SOLN 250 MG/5 ML OSYR PO SCH ×3 (00:48→11:59)
--- NOTE | 2019-06-20 02:19 | PN ---
Date of Progress Note: 06/19/2019 Chief Complaint: Acute kidney injury secondary to prerenal azotemia. Creatinine has been improving. Electrolytes are stable. Patient developed contraction alkalosis, which responded to IV fluids with normal saline infusion. The patient was found to have urinary tract infection and is taking Levaquin. Review of Systems: Denies fever, chills. Denies nausea, vomiting. Physical Examination: Lungs: Clear to auscultation bilaterally. Heart: S1, S2. Abdomen: Soft. Benign. Extremities: No edema. Laboratory Data: Hemoglobin 12.1, WBC 8.8, platelets currently 139,000. Chemistries; sodium 141, potassium 4.0, chloride 109, CO2 27, BUN 15, creatinine 1.33, calcium 9.0, albumin 2.7. Impression And Plan: 1. Dcccl-ex-mfapsda kidney injury. Her renal function has gradually improved from creatinine level 1.9 to 1.30. There is persistent prerenal azotemia, although BUN is improving from 25 to 15. Patient may require daily diuretic adjustment. 2. Hypoalbuminemia. Workup is pending for proteinuria. 3. Avoid nephrotoxic medication. Patient is not a candidate for JEVON inhibitor due to acute kidney injury. 4. Urinary tract infection. Continue Levaquin. Monitor urine culture. 5. Hypomagnesemia. Replacement as needed. LYDIA/RONAN Voice ID: [id number] Report ID: [id number] MTDD
[2019-06-20 04:25] LABS: Absolute Lymphocytes (CBC) 1.6 K/uL (0.7-4.9); Basophils % 0.7 % (0-1.3); Hematocrit 36.3 % (36.0-45.0); Lymphocytes % 20.3 % (15.3-44.8); MPV 12.2 fL (7.6-11.3); RBC Red Blood Cell Count 3.85 M/uL (3.86-4.86)
[2019-06-20 05:00] LABS: Albumin 2.8 g/dL (3.4-5.0); Phosphorus 3.4 mg/dL (2.5-4.9); Potassium 4.3 mmol/L (3.5-5.1)
[2019-06-20] MEDS: levoFLOXacin 500 MG TAB PO SCH (07:46)
[2019-06-20] MEDS: LACTOBACILLUS/ACIDOPHILUS TAB PO SCH ×2 (07:47→13:24)
[2019-06-20] MEDS: ENOXAPARIN 30 MG/0.3 ML SQ SCH (07:47)
[2019-06-20 07:52] VITALS: O2SAT 94
[2019-06-20] MEDS: AMLODIPINE 5 MG TAB PO SCH (09:02)
[2019-06-20] MEDS: atenoloL 25 MG TAB PO SCH (09:03)
[2019-06-20 12:20] VITALS: BP 133/62; TEMP 97.6
--- NOTE | 2019-06-20 18:26 | PN ---
Date of Progress Note: 06/20/2019 Patient was admitted with acute kidney injury secondary to nonsteroidal and prerenal with toxic acute tubular necrosis secondary to UTI. Patient feeling much better. Physical Examination: Vital Signs: Blood pressure 133/62, pulse of 60. Afebrile. Chest: Clear to auscultation. Heart: S1, S2. Regular rhythm. Abdomen: Soft, nontender. Extremities: No edema. Laboratory Data: WBC 8, H and H 12.6/36.3, platelets 159. Sodium 138, potassium 4.3, bicarb 26, BUN 18, creatinine 1.3, calcium of 9, phosphorus 3.4. Current Medications: The patient on include: 1.Amlodipine. 2.Atenolol. 3.Lovenox. 4.Zofran. 5.Vancomycin. Assessment And Plan: 1.Acute kidney injury secondary to prerenal, secondary to nonsteroidal, gastrointestinal loss, super imposed with nonsteroidal acute tubular necrosis, recovering. We will keep holding IV fluid. Patien t cleared from the renal standpoint for discharge planning. 2.Hypertension, controlled optimal. Continue to monitor. 3.Colitis status post treatment. Follow up with Primary. 4.Urinary tract infection secondary to Escherichia coli. Continue current antibiotic. Patient cleared from the renal standpoint for discharge planning. Follow up in 2 to 3 weeks. DAMON Voice ID: [id number] Report ID: [id number]
--- NOTE | 2019-06-20 21:53 | DS ---
Date of Discharge: 06/20/2019 Consultants: 1. Dr. Torres with ID. 2. Dr. Damon with Nephrology. 3. Dr. Armenta with Nephrology. Admitting Diagnoses: 1. Sepsis. 2. Diverticulitis. 3. Viral gastroenteritis. 4. Urinary tract infection. 5. Acute kidney injury. 6. Leukocytosis. Discharge Diagnoses: 1. Sepsis, resolved. 2. E coli bacteremia. 3. Acute C difficile colitis, improving. 4. Acute kidney injury. 5. Obesity, BMI 32. 6. Essential hypertension, stable. Hospital Course: Patient is an 84-year-old female with past medical history of hypertension, diverticulitis, comes in with abdominal pain, nausea, vomiting, diarrhea. She was found to have UTI, started on IV antibiotics. She also had blood cultures obtained, which grew out E coli in the blood / bottles. CT scan of the abdomen showed no acute abdominal or pelvic finding. The patient's C diff result was positive. Initially, she was started on Flagyl and was switched to oral vancomycin by myself. The patient's kidney function was initially elevated at 1.9, improved to 1.3. She was seen by Nephrology as well. Her procalcitonin trended down. White blood cell count normalized. Her sepsis resolved. Her albumin was somewhat low. Patient was then also seen by Infectious Disease who recommended 14 days of treatment for bacteremia and Clostridium difficile colitis. She was started on probiotics. The patient's diarrhea was improving. She was having 2-3 episodes, however still liquidy. She understands that while she is being treated for the bacteremia, her C diff may take longer to improve, however treatment for the E coli bacteremia is necessary to avoid further worsening of her sepsis. Patient was able to tolerate her diet. She was able to ambulate well without difficulty. She was keeping well hydrated. Her kidney function had improved. She was then cleared from access consultant's standpoint and was sent home in a stable condition. Activity: As tolerated. Medications: As per medication reconciliation list. Followup: Follow up with PCP in 1 week. Follow up with Cardiology in 1-2 weeks. Follow up with ID, Dr. Torres, in 2 weeks. Follow up with Nephrology in 2 weeks. Return to ER if symptoms worsen. Diet: Regular. Activity: Fall precautions. Physical Examination: General: Awake, alert, and oriented x3, elderly female, obese. CV: S1, S2. Respiratory: Moving air well bilaterally. Abdomen: Abdomen is soft, nontender, nondistended. Positive bowel sounds. Extremities: No clubbing, cyanosis, or edema. Neurologic: Nonfocal. SA/MODL Voice ID: [id number] Report ID: [id number] MTDD
== END 2019-06-20 13:52 | disposition home or self-care (01) | DRG 871 ==
LOC: ER 19:46 → ERHOLD 23:50 → 4TH 06-16 00:51
PROVIDERS: ADMIT Internal Medicine; ATTEND Family Medicine
DX: A41.51 Sepsis due to Escherichia coli [E. coli] (principal); N17.0 Acute kidney failure with tubular necrosis; A04.72 Enterocolitis due to Clostridium difficile, not specified as recurrent; N39.0 Urinary tract infection, site not specified; E87.3 Alkalosis; R65.20 Severe sepsis without septic shock; E83.42 Hypomagnesemia; I10 Essential (primary) hypertension; E78.5 Hyperlipidemia, unspecified
CPT/HCPCS: 36415; 71045; 72170; 74176; 80048; 80053; 80069; 80076; 81003; 81015; 82570; 83605; 83690; 83735; 83880; 83970; 84100; 84145; 84156; 84484; 85025; 85610; 87040; 87045; 87046; 87077; 87086; 87088; 87186; 87205; 87324; 87449; 89055; 93005; 93306; 96361; 96365; 96367; 96368; 96375; 97116; 97161; 97530; 99285; J0696; J0744; J1650; J2405; J3010; J7030

== ENCOUNTER 2019-11-16 22:01 | Inpatient (IN) | payer OTHER ==
[2019-11-16 23:05] LABS: Protime INR 1.17
[2019-11-16] MEDS ORDERED: ONDANSETRON 4 MG/2 ML VIAL ONE (23:06)
[2019-11-16 23:18] LABS: Absolute Lymphocytes (CBC) 1.2 K/uL (0.7-4.9); Basophils % 0.3 % (0-1.3); Hematocrit 38.2 % (36.0-45.0); Lymphocytes % 6.2 % (15.3-44.8); MPV 12.8 fL (7.6-11.3); RBC Red Blood Cell Count 3.98 M/uL (3.86-4.86)
[2019-11-16 23:20] LABS: ALT/SGPT 17 U/L (12-78); AST/SGOT 13 U/L (15-37); Albumin 3.4 g/dL (3.4-5.0); Alkaline Phosphatase 71 U/L (45-117); BUN Blood Urea Nitrogen 35 mg/dL (7-18); Bicarbonate 21 mmol/L (21-32); Bilirubin Direct 0.3 mg/dL (0-0.2); Bilirubin Total 0.9 mg/dL (0.2-1.0); Glucose Level 101 mg/dL (74-106); Magnesium 1.6 mg/dL (1.8-2.4); NT PRO-BNP 3091 pg/mL (<450); Potassium 3.9 mmol/L (3.5-5.1); Protein, Total 7.6 g/dL (6.4-8.2); Sodium Level 140 mmol/L (136-145); Troponin (Emerg Dept Use Only) < 0.02 ng/mL (0.0-0.045)
[2019-11-16 23:57] LABS: Blood Morphology Comment NOT SEEN (NOT SEEN); Platelet Estimate ADEQ
[2019-11-17 00:52] LABS: Urine Bacteria 20-50 /HPF (<20); Urine Culture Reflex Order REFLEXED
[2019-11-17 00:54] LABS: Urine Blood 2+ (NEG); Urine Glucose NEGATIVE (NEG); Urine Protein 3+ (NEG); Urine Specific Gravity 1.025 (1.005-1.030)
--- NOTE | 2019-11-17 01:00 | ER ---
Nurse's Notes [facility] Name: Kayleigh Cooney Age: 84 yrs Sex: Female : 1935 Arrival Date: 11/16/2019 Time: 22:03 Bed 26 Private MD: Diagnosis: Elevated white blood cell count;Urinary tract infection, site not specified;Nausea;Bandemia Presentation: 11/15 22:24 Chief complaint: Patient states: Nausea since this morning; Denies any vomiting, lp1 diarrhea, urinary symttoms, fever. Coronavirus screen: Proceed with normal triage. Ebola Screen: No symptoms or risks identified at this time. Initial Sepsis Screen: Does the patient meet any 2 criteria? No. Patient's initial sepsis screen is negative. Does the patient have a suspected source of infection? No. Patient's initial sepsis screen is negative. Risk Assessment: Do you want to hurt yourself or someone else? Patient reports no desire to harm self or others. Onset of symptoms was November 16, 2019. 22:24 Method Of Arrival: Wheelchair lp1 22:24 Acuity: WON 3 lp1 Historical: - Allergies: 22:27 No Known Allergies; lp1 - Home Meds: 22:27 Atenolol Oral [Active]; lp1 - PMHx: 22:27 Diverticulitis; Hypertension; lp1 - PSHx: 22:27 Partial colon removal; lp1 - Immunization history:: Adult Immunizations up to date. - Social history:: Smoking status: Patient denies any tobacco usage or history of. Screenin:29 Abuse screen: Denies threats or abuse. Denies injuries from another. Nutritional lp1 screening: No deficits noted. Tuberculosis screening: No symptoms or risk factors identified. Fall Risk Total Valdes Fall Scale indicates High Risk Score (45 or more points). Fall prevention measures have been instituted. As available patient and family educated on Fall Prevention Program and Strategies. Assessment: 22:28 General: Appears in no apparent distress. Behavior is appropriate for age. Pain: Denies lp1 pain. Neuro: Level of Consciousness is awake, alert, obeys commands, Oriented to person, place, time, situation. Cardiovascular: Patient's skin is warm and dry. Respiratory: Respiratory effort is even, Breath sounds are clear bilaterally. GI: Abdomen is non-distended, Bowel sounds present X 4 quads. Abd is soft and non tender X 4 quads. Reports nausea. : Denies burning with urination. EENT: No signs and/or symptoms were reported regarding the EENT system. Derm: Skin is intact, Skin is clammy, Skin is normal. Musculoskeletal: No signs and/or symptoms reported regarding the musculoskeletal system. 23:12 Reassessment: Patient appears in no apparent distress at this time. Patient resting, lp1 eyes closed, respirations even;. 23:46 Reassessment: Patient appears in no apparent distress at this time. patient ambulated lp1 to bathroom; states nausea relief at this time. 11/16 00:21 Reassessment: Lab at bedside. lp1 01:24 Reassessment: Patient appears in no apparent distress at this time. No changes from ls4 previously documented assessment. Patient and/or family updated on plan of care and expected duration. Pain level reassessed. Patient is alert, oriented x 3, equal unlabored respirations, skin warm/dry/pink. Vital Signs: 11/15 22:24 BP 107 / 45; Pulse 86; Resp 18; Temp 98.7(O); Pulse Ox 95% on R/A; Weight 74.39 kg (R); lp1 Height 5 ft. 0 in. (152.40 cm) (R); Pain 0/10; 23:30 BP 120 / 49; Pulse 72; Resp 20; Pulse Ox 94% on R/A; lp1 11/16 01:24 BP 115 / 34; Pulse 71; Resp 14; Temp 98.3(O); Pulse Ox 100% on R/A; Pain 0/10; ls4 11/15 22:24 Body Mass Index 32.03 (74.39 kg, 152.40 cm) lp1 ED Course: 11/15 22:03 Patient arrived in ED. fj1 22:24 Judie Garcia, RN is Primary Nurse. lp1 22:26 Triage completed. lp1 22:26 Arm band placed on. lp1 22:27 Rosalba Gaines FNP-C is [facility]. kb 22:27 Nilo Vickers MD is Attending Physician. kb 22:29 Patient has correct armband on for positive identification. Placed in gown. Bed in low lp1 position. Call light in reach. veterinary livestock inspector on. Pulse ox on. NIBP on. 22:35 Inserted saline lock: 22 gauge in left wrist, using aseptic technique. Blood collected. ds4 Missed attempt(s): 18 gauge in right forearm. Bleeding controlled, band aid applied, catheter tip intact. 23:05 XRAY Chest (1 view) In Process Unspecified. EDMS 23:57 Notified Nurse Practitioner and/or Physician Diplomatic Courier of a critical lab result(s), lp1 bands 19%. 11/16 00:08 Urine Dipstick--Ancillary (enter results) Sent. ds4 00:08 Urine Microscopic Only Sent. ds4 00:15 CT Stone Protocol In Process Unspecified. EDMS 00:21 Report given to GBAI Barajas. lp1 00:59 Belen Smith MD is Hospitalizing Provider. kb 01:23 No provider procedures requiring assistance completed. ls4 01:53 Report given to anthony vasquez. ls4 01:57 Patient admitted, IV remains in place. ls4 Administered Medications: 11/15 22:45 Drug: Zofran (Ondansetron) 4 mg Route: IVP; Site: left wrist; lp1 23:52 Follow up: Response: Nausea is decreased lp1 11/16 01:10 Drug: Rocephin 1 grams Route: IV; Rate: calculated rate; Site: left forearm; ls4 01:20 Follow up: Response: No adverse reaction; IV Status: Completed infusion; IV Intake: [id number] 01:20 Drug: NS 0.9% 500 ml Route: IV; Rate: bolus; Site: left forearm; ls4 01:46 Follow up: IV Status: Infusion continued upon admission ls4 01:20 Drug: Magnesium Sulfate 1 grams Route: IVPB; Infused Over: 1 hrs; Site: left forearm; ls4 01:47 Follow up: IV Status: Infusion continued upon admission ls4 Intake: 01:20 IV: 10ml; Total: 10ml. ls4 Outcome: 00:59 Decision to Hospitalize by Provider. kb 01:55 Admitted to Med/surg accompanied by nurse, via stretcher, room 228, on monitor, with ls4 chart, Report called to ANTHONY 01:55 Condition: unchanged 01:55 Instructed on the need for admit, son called Thomas and notified of admission 01:57 Patient left the ED. ls4 Signatures: Dispatcher [employer] Rosalba Wakefield, EBD SPECIAL EDUCATION TEACHER-C EBD SPECIAL EDUCATION TEACHER-Ckb Judie Garcia, RN RN lp1 Jacky Wood ds4 Jenn Maria RN RN ls4 Luis Dodd fj1
--- NOTE | 2019-11-17 01:01 | EDPHYS ---
Physician Documentation [facility] Name: Kayleigh Cooney Age: 84 yrs Sex: Female : 1935 Arrival Date: 11/16/2019 Time: 22:03 Bed 26 Private MD: ED Physician Nilo Vickers HPI: 11/16 00:21 This 84 yrs old Female presents to ER via Wheelchair with complaints of kb Nausea/Vomiting. 00:21 The patient presents to the emergency department with nausea. Onset: The kb symptoms/episode began/occurred this morning. Possible causes: unknown. The symptoms are aggravated by nothing. The symptoms are alleviated by nothing. Associated signs and symptoms: Pertinent positives: fever, nausea, Pertinent negatives: abdominal pain, anorexia, belching, constipation, diarrhea, dysuria, flatulence, GI bleeding, hematuria, vaginal discharge, vomiting. Severity of symptoms: At their worst the symptoms were mild in the emergency department the symptoms are unchanged. The patient has not experienced similar symptoms in the past. The patient has not recently seen a physician. Historical: - Allergies: 11/15 22:27 No Known Allergies; lp1 - Home Meds: 22:27 Atenolol Oral [Active]; lp1 - PMHx: 22:27 Diverticulitis; Hypertension; lp1 - PSHx: 22:27 Partial colon removal; lp1 - Immunization history:: Adult Immunizations up to date. - Social history:: Smoking status: Patient denies any tobacco usage or history of. ROS: 11/16 00:20 Neck: Negative for injury, pain, and swelling, Cardiovascular: Negative for chest pain, kb palpitations, and edema, Respiratory: Negative for shortness of breath, cough, wheezing, and pleuritic chest pain, Back: Negative for injury and pain, MS/Extremity: Negative for injury and deformity, Skin: Negative for injury, rash, and discoloration, Neuro: Negative for headache, weakness, numbness, tingling, and seizure. Constitutional: Positive for fever, Negative for body aches, chills, fatigue, malaise, poor PO intake, weight loss. Abdomen/GI: Positive for nausea, Negative for abdominal pain, vomiting, diarrhea, constipation, abdominal cramps, abdominal distension, anorexia. Exam: 00:20 Constitutional: This is a well developed, well nourished patient who is awake, alert, kb and in no acute distress. Head/Face: Normocephalic, atraumatic. Neck: Trachea midline, no thyromegaly or masses palpated, and no cervical lymphadenopathy. Supple, full range of motion without nuchal rigidity, or vertebral point tenderness. No Meningismus. Chest/axilla: Normal chest wall appearance and motion. Nontender with no deformity. No lesions are appreciated. Cardiovascular: Regular rate and rhythm with a normal S1 and S2. No gallops, murmurs, or rubs. Normal PMI, no JVD. No pulse deficits. Respiratory: Lungs have equal breath sounds bilaterally, clear to auscultation and percussion. No rales, rhonchi or wheezes noted. No increased work of breathing, no retractions or nasal flaring. Abdomen/GI: Soft, non-tender, with normal bowel sounds. No distension or tympany. No guarding or rebound. No evidence of tenderness throughout. Skin: Warm, dry with normal turgor. Normal color with no rashes, no lesions, and no evidence of cellulitis. MS/ Extremity: Pulses equal, no cyanosis. Neurovascular intact. Full, normal range of motion. Neuro: Awake and alert, GCS 15, oriented to person, place, time, and situation. Cranial nerves II-XII grossly intact. Motor strength 5/5 in all extremities. Sensory grossly intact. Cerebellar exam normal. Normal gait. Vital Signs: 11/15 22:24 BP 107 / 45; Pulse 86; Resp 18; Temp 98.7(O); Pulse Ox 95% on R/A; Weight 74.39 kg (R); lp1 Height 5 ft. 0 in. (152.40 cm) (R); Pain 0/10; 23:30 BP 120 / 49; Pulse 72; Resp 20; Pulse Ox 94% on R/A; lp1 11/16 01:24 BP 115 / 34; Pulse 71; Resp 14; Temp 98.3(O); Pulse Ox 100% on R/A; Pain 0/10; ls4 11/15 22:24 Body Mass Index 32.03 (74.39 kg, 152.40 cm) lp1 MDM: 11/15 22:27 Patient medically screened. kb 11/16 00:20 Data reviewed: vital signs, nurses notes. Data interpreted: Pulse oximetry: on room air kb is 94 %. Interpretation: normal. 00:58 Counseling: I had a detailed discussion with the patient and/or guardian regarding: the kb historical points, exam findings, and any diagnostic results supporting the discharge/admit diagnosis, lab results, radiology results, the need for further work-up and treatment in the hospital. Physician consultation: Belen Smith MD was contacted at 00:58, regarding admission, to the telemetry unit. patient's condition, and will see patient in ED, shortly. 11/15 22:39 Order name: Basic Metabolic Panel; Complete Time: 23:35 kb 11/15 22:39 Order name: CBC with Diff; Complete Time: 23:58 kb 11/15 22:39 Order name: LFT's; Complete Time: 23:35 kb 11/15 22:39 Order name: Magnesium; Complete Time: 23:35 kb 11/15 22:39 Order name: NT PRO-BNP; Complete Time: 23:35 kb 11/15 22:39 Order name: PT-INR; Complete Time: 23:35 kb 11/15 22:39 Order name: Troponin (emerg Dept Use Only); Complete Time: 23:35 kb 11/15 23:29 Order name: Manual Differential; Complete Time: 23:58 EDMS 11/15 23:58 Order name: Urine Microscopic Only; Complete Time: 00:56 ds4 11/15 23:58 Order name: Lactate; Complete Time: 00:59 kb 11/15 23:58 Order name: Procalcitonin; Complete Time: 01:22 kb 11/15 23:58 Order name: Blood Culture Adult (2) kb 11/15 23:59 Order name: Urine Dipstick--Ancillary (enter results); Complete Time: 00:56 ds4 11/16 00:55 Order name: Urine Culture EDMS 11/15 22:39 Order name: XRAY Chest (1 view) kb 11/15 22:39 Order name: EKG; Complete Time: 22:40 kb 11/15 22:39 Order name: Cardiac monitoring; Complete Time: 22:46 kb 11/15 22:39 Order name: EKG - Nurse/Tech; Complete Time: 22:46 kb 11/15 22:39 Order name: IV Saline Lock; Complete Time: 22:46 kb 11/15 23:36 Order name: CT Stone Protocol 11/16 01:30 Order name: CONS Pharmacy Consult EDDC 11/16 01:30 Order name: Heart Healthy EDDC 11/16 01:30 Order name: CBC with Automated Diff EDMS 11/16 01:30 Order name: CBC with Automated Diff EDMS 11/16 01:30 Order name: Comprehensive Metabolic Panel EDDC 11/16 01:30 Order name: Comprehensive Metabolic Panel [facility] 11/15 22:39 Order name: Labs collected and sent; Complete Time: 22:46 kb 11/15 22:39 Order name: O2 Per Protocol; Complete Time: 22:46 kb 11/15 22:39 Order name: O2 Sat Monitoring; Complete Time: 22:46 kb 11/15 23:36 Order name: Urine Dipstick-Ancillary (obtain specimen); Complete Time: 23:52 kb Administered Medications: 11/15 22:45 Drug: Zofran (Ondansetron) 4 mg Route: IVP; Site: left wrist; lp1 23:52 Follow up: Response: Nausea is decreased 1 11/16 01:10 Drug: Rocephin 1 grams Route: IV; Rate: calculated rate; Site: left forearm; ls4 01:20 Follow up: Response: No adverse reaction; IV Status: Completed infusion; IV Intake: [id number] 01:20 Drug: NS 0.9% 500 ml Route: IV; Rate: bolus; Site: left forearm; ls4 01:46 Follow up: IV Status: Infusion continued upon admission ls4 01:20 Drug: Magnesium Sulfate 1 grams Route: IVPB; Infused Over: 1 hrs; Site: left forearm; ls4 01:47 Follow up: IV Status: Infusion continued upon admission ls4 Disposition: 06:49 Co-signature as Attending Physician, Nilo Vickers MD I agree with the assessment and 4 plan of care. Disposition: 11/17/19 00:59 Hospitalization ordered by Belen Smith for Inpatient Admission. Preliminary diagnosis are Elevated white blood cell count, Urinary tract infection, site not specified, Nausea, Bandemia. - Bed requested for Telemetry/MedSurg (Inpatient). - Status is Inpatient Admission. ls4 - Condition is Stable. - Problem is new. - Symptoms are unchanged. Signatures: Dispatcher [employer] EDRosalba Arauz FNP-C FNP-Ckb Judie Garcia, RN RN lp1 Shelley Mondragon, GABI RN tl1 Nilo Vickers MD MD tw4 Jenn Maria RN RN ls4 Corrections: (The following items were deleted from the chart) 01:42 00:59 Hospitalization Ordered by Belen Smith MD for Inpatient Admission. Preliminary tl1 diagnosis is Elevated white blood cell count; Urinary tract infection, site not specified; Nausea; Bandemia. Bed requested for Telemetry/MedSurg (Inpatient). Status is Inpatient Admission. Condition is Stable. Problem is new. Symptoms are unchanged. kb 01:57 01:42 11/17/2019 00:59 Hospitalization Ordered by Belen Smith MD for Inpatient ls4 Admission. Preliminary diagnosis is Elevated white blood cell count; Urinary tract infection, site not specified; Nausea; Bandemia. Bed requested for Telemetry/MedSurg (Inpatient). Status is Inpatient Admission. Condition is Stable. Problem is new. Symptoms are unchanged. tl1
[2019-11-17] MEDS ORDERED: MAGNESIUM SULFATE 1 gm IVPB 1 GM/100 ML BAG IV ONE (01:12)
[2019-11-17] MEDS ORDERED: NA CHLORIDE 0.9% 500 ML ONE (01:12)
[2019-11-17] MEDS ORDERED: CEFTRIAXONE/SWI 1gm 1 GM/10 ML SYR ONE (01:12)
[2019-11-17] MEDS ORDERED: MORPHINE 2 MG/ML SYR IV PRN (01:23)
[2019-11-17] MEDS ORDERED: ACETAMINOPHEN 500 MG TAB PO PRN (01:23)
[2019-11-17] MEDS ORDERED: ONDANSETRON 4 MG/2 ML VIAL IV PRN (01:23)
[2019-11-17] MEDS ORDERED: Levofloxacin500mg IV 500 MG/100 ML BAG IV ONE (02:00)
[2019-11-17] MEDS: CEFTRIAXONE/SWI 1gm 1 GM/10 ML SYR IV SCH ×3 (02:00→20:28)
[2019-11-17 02:33] VITALS: BMI 32.8
[2019-11-17] MEDS: NA CHLORIDE 0.9% 1,000 ML IV SCH ×2 (03:15→12:00)
[2019-11-17] MEDS ORDERED: NA CHLORIDE 0.9% 1,000 ML IV ONE (07:03)
--- NOTE | 2019-11-17 07:03 | EKG ---
Test Date: 2019-11-16 Test Time: 22:32:59 Guard Immigration: FOSTER MEASUREMENT RESULTS: Intervals: Rate: 79 W[place]: 208 QRSD: 138 QT: 398 QTc: 456 [place]: P: 46 W[place]: 208 QRS: -52 T: -3 INTERPRETIVE STATEMENTS: Normal sinus rhythm Right bundle branch block Left anterior fascicular block Bifascicular block Moderate voltage criteria for LVH, may be normal variant Abnormal ECG Compared to ECG 06/15/2019 22:34:14 No significant changes Electronically Signed On 11-17-19 07:01:57 CDT by Noé Escalante
--- NOTE | 2019-11-17 07:33 | RAD REPORT ---
EXAM DESCRIPTION: [facility] Single View11/16/2019 11:05 pm CLINICAL HISTORY: Hypertension/ malaise COMPARISON: October 2019 FINDINGS: The lungs appear clear of acute infiltrate. The heart is normal size . Mild elevation rig ht hemidiaphragm unchanged IMPRESSION: No acute abnormalities displayed
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
--- NOTE | 2019-11-17 11:23 | RAD REPORT ---
EXAM DESCRIPTION: CT - Stone Protocol - 11/17/2019 6:47 am CLINICAL HISTORY: ABD PAIN TECHNIQUE: Contiguous axial images obtained through the abdomen and pelvis without IV contrast. Homero nal and sagittal reformatted images were provided. This exam was performed according to our departmental dose-optimization program, which includes autom ated exposure control, adjustment of the mA and/or kV according to patient size and/or use of iterati ve reconstruction technique. COMPARISON: 06/15/2019 FINDINGS: Lung bases: No focal consolidation. The heart is enlarged. Coronary artery calcification. Liver: The liver is enlarged. Punctate parenchymal calcification compatible with remote granulomatous organism exposure. Gallbladder and biliary system: Prior cholecystectomy. Slight interval increase in degree of intrahep atic and extrahepatic biliary dilatation. The common bile duct measures up to 13 mm in maximum diamet er. Pancreas: Grossly unremarkable Spleen: Grossly unremarkable Adrenals: Bilateral adrenal thickening and punctate left adrenal calcification again demonstrated. Kidneys: 1.1 cm cortical cyst at the upper pole on the left without significant interval change. Bila teral perinephric stranding, right greater than left and progressed on the right. No calculi. No hydr onephrosis. Bowel: Duodenal diverticula. Colonic diverticula without adjacent inflammatory change. No obstruction . No appreciable mucosal thickening. Appendix: The appendix is not definitively visualized. No findings to suggest acute appendicitis. Urinary bladder: The urinary bladder is decompressed. Reproductive: Prominent endometrium measuring approximately 17 mm in thickness, similar to the prior study. No adnexal mass. Lymph nodes: No pathologically enlarged lymph nodes. Peritoneum: No focal fluid collection. No free air. Vessels: Mild to moderate atherosclerotic disease. No abdominal aortic aneurysm. Abdominal wall: Midline ventral abdominal wall incisional scar. Bones: Multilevel spondylosis. No acute fracture. IMPRESSION: 1. Bilateral perinephric stranding, right greater than left and progressed on the right. This is non specific and may be chronic. Acute superimposed inflammatory process not excluded. 2. Colonic diverticulosis without radiologic evidence for acute diverticulitis. 3. Prominent endometrium similar to the prior study. Further evaluation/follow-up is suggested in or elian to exclude underlying malignancy. 4. Other findings above. Electronically signed by: Kelsey Vitale MD 11/17/2019 12:36 AM CDT Due to temporary technical issues with the PACS/Fluency reporting system, reports are being signed by the in house radiologist as a courtesy to ensure prompt reporting. The interpreting radiologist is f ully responsible for the content of the report.
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
[2019-11-17] MEDS: NACHLORIDE 0.45% 1,000 ML IV SCH ×2 (12:30→22:11)
--- NOTE | 2019-11-17 15:05 | P.PN ---
Subjective Date of Service: 11/17/19 Primary Care Provider: Dr. Caceres Chief Complaint: Pyelonephritis Subjective: Doing well (Pain better controlled) Physical Examination - Vital Signs Temperature: 97.7 F Blood Pressure: 130/60 Pulse: 67 Respirations: 15 Pulse Ox (%): 96 - Physical Exam General: Alert, In no apparent distress, Oriented x3, Cooperative HEENT: Atraumatic Neck: Supple Respiratory: Clear to auscultation bilaterally, Normal air movement Cardiovascular: Normal pulses, Regular rate/rhythm Gastrointestinal: Normal bowel sounds, Soft and benign, Tenderness (Slight pain to the right flank) Neurological: Normal speech, Normal strength at 5/5 x4 extr, Normal tone, Normal affect - Studies Laboratory Data (last 24 hrs) 11/16/19 22:35: PT 13.8 H, INR 1.17 11/16/19 22:35: WBC 19.4 H, Hgb 12.5, Hct 38.2, Plt Count 109 L 11/16/19 22:35: Sodium 140, Potassium 3.9, BUN 35 H, Creatinine 1.76 H, Glucose 101, Magnesium 1.6 L D, Total Bilirubin 0.9, AST 13 L, ALT 17, Alkaline Phosphatase 71 Medications List Reviewed: Yes Assessment & Plan Discharge Plan: Home Plan to discharge in: 48 Hours Physician Review Additional Text: Impression: Sepsis secondary to bilateral pyelonephritis right greater than left 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 Continue IV fluids. Will monitor closely. Await blood and urine culture results. Patient will require at least 2 weeks of antibiotic therapy. Await cultures. Encourage ambulation. Will provide incentive spirometer. Will discuss further with nephrology. 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 History hypertension: Hold blood pressure medication at this time. If blood pressure increases then may need to restart medication. Prominent endometrial thickening: Will recommend gynecology evaluation as an outpatient to further monitor and address. Time Spent Managing Pts Care (In Minutes): 55
[2019-11-17] MEDS ORDERED: Levofloxacin 250mg IV 250 MG/50 ML BAG IV SCH (21:00)
[2019-11-18 06:19] LABS: Bilirubin Total 0.2 mg/dL (0.2-1.0); Potassium 4.3 mmol/L (3.5-5.1); Protein, Total 7.5 g/dL (6.4-8.2)
[2019-11-18 06:56] LABS: Absolute Lymphocytes (CBC) 2.8 K/uL (0.7-4.9); Basophils % 0.3 % (0-1.3); Hematocrit 36.2 % (36.0-45.0); Lymphocytes % 13.2 % (15.3-44.8); MPV 13.3 fL (7.6-11.3); RBC Red Blood Cell Count 3.77 M/uL (3.86-4.86)
[2019-11-18 07:22] LABS: Blood Morphology Comment NOT SEEN (NOT SEEN); Platelet Estimate DECR
[2019-11-18] MEDS: CEFTRIAXONE/SWI 1gm 1 GM/10 ML SYR IV SCH ×2 (08:58→20:58)
[2019-11-18] MEDS: NACHLORIDE 0.45% 1,000 ML IV SCH ×2 (08:59→18:24)
--- NOTE | 2019-11-18 09:14 | P.PN ---
Subjective Date of Service: 11/18/19 Primary Care Provider: Dr. Mcmullen Chief Complaint: Pyelonephritis Subjective: Improving, Doing well Physical Examination - Vital Signs Temperature: 97.4 F Blood Pressure: 150/65 Pulse: 59 Respirations: 16 Pulse Ox (%): 96 - Physical Exam General: Alert, In no apparent distress, Oriented x3, Cooperative HEENT: Atraumatic Neck: Supple Respiratory: Clear to auscultation bilaterally Cardiovascular: Normal pulses, Regular rate/rhythm Gastrointestinal: Normal bowel sounds, Soft and benign, Non-distended Musculoskeletal: No erythema, No tenderness, No warmth Integumentary: No tenderness/swelling, No erythema, No warmth, No cyanosis Neurological: Normal speech, Normal strength at 5/5 x4 extr, Normal tone - Studies Medications List Reviewed: Yes Assessment & Plan Discharge Plan: Home Plan to discharge in: 24 Hours Physician Review Additional Text: Impression: Sepsis secondary to bilateral pyelonephritis right greater than left, urine culture positive for Gram-negative rods 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 Continue IV fluids. Patient feels much better. No significant abdominal pain, nausea vomiting. Await blood and urine culture results. Patient ambulating well. Anticipate improvement over the next 24 hr. Likely discharge within the next 24 hr once culture results have finalize. Will discuss further with nephrology. 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 History hypertension: Will restart blood pressure medication. Prominent endometrial thickening: Will recommend gynecology evaluation as an outpatient to further monitor and address. Time Spent Managing Pts Care (In Minutes): 55
[2019-11-18] MEDS: HEPARIN 5000 UNIT/ML 1 ML VIAL SQ SCH ×2 (09:46→20:59)
[2019-11-18] MEDS: AMLODIPINE 5 MG TAB PO SCH (09:47)
[2019-11-18] MEDS: atenoloL 25 MG TAB PO SCH (09:47)
--- NOTE | 2019-11-18 14:35 | P.PN ---
Subjective Date of Service: 11/18/19 Primary Care Provider: Dr. Mcmullen Chief Complaint: Pyelonephritis patient seen/examined. alert. comfortable. no n/v. breathing comfortably. no cv tenderness. says she is able to keep food down. vs stable. lungs cta cvs rrr abd soft ext no edema a/p:uti/ckd/nausea resolved. alert/no sob/eating, drinking well. on abx: f/u with primary telegraph office telephone clerk (Dr. Mcmullen) once d/jono from hospital to review/monitor ckd. clinically looks improved. awaiting ucx and adjustment of abx for outpatient based on ucx. d/c planning as per hospitalist once decision on outpatient abx is made. 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 Continue IV fluids. Patient feels much better. No significant abdominal pain, nausea vomiting. Await blood and urine culture results. Patient ambulating well. Anticipate improvement over the next 24 hr. Likely discharge within the next 24 hr once culture results have finalize. Will discuss further with nephrology. 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 History hypertension: Will restart blood pressure medication. Prominent endometrial thickening: Will recommend gynecology evaluation as an outpatient to further monitor and address.
[2019-11-18] MEDS ORDERED: MAGNESIUM OXIDE 400 MG TAB PO SCH (21:00)
[2019-11-18] MEDS ORDERED: HEPARIN 5000 UNIT/ML 1 ML VIAL SQ SCH (21:00)
[2019-11-19 07:55] VITALS: O2SAT 96
[2019-11-19] MEDS: CEFTRIAXONE/SWI 1gm 1 GM/10 ML SYR IV SCH (07:56)
[2019-11-19] MEDS: atenoloL 25 MG TAB PO SCH (07:56)
[2019-11-19] MEDS: AMLODIPINE 5 MG TAB PO SCH (07:57)
[2019-11-19] MEDS: NACHLORIDE 0.45% 1,000 ML IV SCH (07:58)
[2019-11-19] MEDS: HEPARIN 5000 UNIT/ML 1 ML VIAL SQ SCH (07:58)
[2019-11-19] MEDS ORDERED: atenoloL 25 MG TAB PO SCH (09:00)
[2019-11-19] MEDS ORDERED: AMLODIPINE 5 MG TAB PO SCH (09:00)
[2019-11-19 09:21] LABS: Absolute Lymphocytes (CBC) 1.7 K/uL (0.7-4.9); Basophils % 0.8 % (0-1.3); Hematocrit 33.2 % (36.0-45.0); MPV 12.2 fL (7.6-11.3); RBC Red Blood Cell Count 3.46 M/uL (3.86-4.86)
[2019-11-19 09:34] LABS: Potassium 3.9 mmol/L (3.5-5.1)
--- NOTE | 2019-11-19 10:46 | P.DS ---
Admission Date: 11/17/19 Discharge Date: 11/19/19 Primary Care Provider: Dr. Mcmullen Disposition: ROUTINE DISCHARGE Discharge Condition: GOOD Reason for Admission: Pyelonephritis Consultations: Nephrology-Dr. Kiran Procedures: CT Scan: FINDINGS: Lung bases: No focal consolidation. The heart is enlarged. Coronary artery calcification. Liver: The liver is enlarged. Punctate parenchymal calcification compatible with remote granulomatous organism exposure. Gallbladder and biliary system: Prior cholecystectomy. Slight interval increase in degree of intrahepatic and extrahepatic biliary dilatation. The common bile duct measures up to 13 mm in maximum diameter. Pancreas: Grossly unremarkable Spleen: Grossly unremarkable Adrenals: Bilateral adrenal thickening and punctate left adrenal calcification again demonstrated. Kidneys: 1.1 cm cortical cyst at the upper pole on the left without significant interval change. Bilateral perinephric stranding, right greater than left and progressed on the right. No calculi. No hydronephrosis. Bowel: Duodenal diverticula. Colonic diverticula without adjacent inflammatory change. No obstruction. No appreciable mucosal thickening. Appendix: The appendix is not definitively visualized. No findings to suggest acute appendicitis. Urinary bladder: The urinary bladder is decompressed. Reproductive: Prominent endometrium measuring approximately 17 mm in thickness, similar to the prior study. No adnexal mass. Lymph nodes: No pathologically enlarged lymph nodes. Peritoneum: No focal fluid collection. No free air. Vessels: Mild to moderate atherosclerotic disease. No abdominal aortic aneurysm. Abdominal wall: Midline ventral abdominal wall incisional scar. Bones: Multilevel spondylosis. No acute fracture. IMPRESSION: 1. Bilateral perinephric stranding, right greater than left and progressed on the right. This is nonspecific and may be chronic. Acute superimposed inflammatory process not excluded. 2. Colonic diverticulosis without radiologic evidence for acute diverticulitis. 3. Prominent endometrium similar to the prior study. Further evaluation/follow- up is suggested in order to exclude underlying malignancy. 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 Patient found to have bilateral pyelonephritis. Patient was admitted for treatment. Hospital Course: Patient presented with sepsis secondary to bilateral pyelonephritis, right greater than left. Patient was treated with sepsis protocol. Patient responded to IV fluids and antibiotic therapy. Due to her chronic renal disease patient was also seen by nephrology. During the course of her stay her condition improved. Patient was found to have E coli in the urine. Blood cultures were negative. At discharge she is without significant nausea vomiting. Patient much improved. At discharge she will continue with Augmentin 500 mg twice daily for 14 days. Recommend follow up with her PCP in 1 week to follow up this hospitalization. Will recommend repeat urine culture after treatment to monitor resolution. Patient may benefit with urology evaluation as an outpatient if symptoms persist. As mentioned above patient with chronic renal disease. Patient had acute on chronic renal disease due to sepsis. Patient will was better hydrated. Patient was seen by Nephrology. At discharge her renal disease is back to baseline. Patient with chronic renal disease stage III. Recommend follow up with nephrology in 1-2 weeks to monitor her progress. Recommend to recheck lab-BMP in 1 week. Recommend no use of nonsteroidal anti-inflammatories. Future medications will need to be renally dose. Patient with hypertension. Patient may continue with Norvasc 5 mg daily and atenolol 25 mg daily. Patient previously on Aldactone as well. Will hold Aldactone at this time. Recommend to monitor blood pressure daily. If blood pressure remains less than 120 systolic she may need to hold her blood pressure medication. At discharge patient will continue with Norvasc 5 mg daily and atenolol 25 mg daily. Will discontinue Aldactone at this time. Further adjustment in medication can be done by her PCP or nephrology. CT scan showed endometrial thickening pain. Patient is to see gynecology soon to further monitor and address. Vital Signs/Physical Exam: Temp Pulse Resp BP Pulse Ox 97.0 F 59 15 129/80 97 11/19/19 08:00 11/19/19 08:00 11/19/19 08:00 11/19/19 08:00 11/19/19 08:00 General: Alert, In no apparent distress, Oriented x3, Cooperative HEENT: Atraumatic Neck: Supple Respiratory: Clear to auscultation bilaterally, Normal air movement Cardiovascular: Normal pulses, Regular rate/rhythm Gastrointestinal: Normal bowel sounds, Soft and benign, Non-distended, No tenderness, No masses, No rebound, No guarding Musculoskeletal: No erythema, No tenderness, No warmth Integumentary: No tenderness/swelling, No erythema, No warmth, No cyanosis Neurological: Normal speech, Normal strength at 5/5 x4 extr, Normal tone, Normal affect Laboratory Data at Discharge: WBC 10.4 K/uL (4.3-10.9) D 11/19/19 09:13 Hgb 11.0 g/dL (12.0-15.0) L 11/19/19 09:13 Hct 33.2 % (36.0-45.0) L 11/19/19 09:13 Plt Count 104 K/uL (152-406) L 11/19/19 09:13 PT 13.8 SECONDS (9.5-12.5) H 11/16/19 22:35 INR 1.17 11/16/19 22:35 Sodium 142 mmol/L (136-145) 11/19/19 09:13 Potassium 3.9 mmol/L (3.5-5.1) 11/19/19 09:13 BUN 24 mg/dL (7-18) H 11/19/19 09:13 Creatinine 1.28 mg/dL (0.55-1.3) 11/19/19 09:13 Glucose 125 mg/dL (74-106) H 11/19/19 09:13 Magnesium 2.0 mg/dL (1.8-2.4) 11/19/19 09:13 Total Bilirubin 0.2 mg/dL (0.2-1.0) 11/18/19 05:46 AST 12 U/L (15-37) L 11/18/19 05:46 ALT 18 U/L (12-78) 11/18/19 05:46 Alkaline Phosphatase 60 U/L (45-117) 11/18/19 05:46 Home Medications: Amlodipine Besylate 5 mg PO DAILY 06/16/19 atenoloL [Tenormin*] 25 mg PO DAILY 06/16/19 Amox/Clavulanate [Augmentin 500-125 mg Tab] 500 mg PO BID #28 tab 11/19/19 New Medications: Amox/Clavulanate [Augmentin 500-125 mg Tab] 500 mg PO BID #28 tab Patient Discharge Instructions: 1. Recommend follow up with PCP in 1 week to follow up this hospitalization. 2. Patient presented with sepsis secondary to bilateral pyelonephritis, right greater than left. Patient was treated with sepsis protocol. Patient responded to IV fluids and antibiotic therapy. Due to her chronic renal disease patient was also seen by nephrology. During the course of her stay her condition improved. Patient was found to have E coli in the urine. Blood cultures were negative. At discharge she is without significant nausea vomiting. Patient much improved. At discharge she will continue with Augmentin 500 mg twice daily for 14 days. Recommend follow up with her PCP in 1 week to follow up this hospitalization. Will recommend repeat urine culture after treatment to monitor resolution. Patient may benefit with urology evaluation as an outpatient if symptoms persist. 3. As mentioned above patient with chronic renal disease. Patient had acute on chronic renal disease due to sepsis. Patient will was better hydrated. Patient was seen by Nephrology. At discharge her renal disease is back to baseline. Patient with chronic renal disease stage III. Recommend follow up with nephrology in 1-2 weeks to monitor her progress. Recommend to recheck lab-BMP in 1 week. Recommend no use of nonsteroidal anti-inflammatories. Future medications will need to be renally dose. 4. Patient with hypertension. Patient may continue with Norvasc 5 mg daily and atenolol 25 mg daily. Patient previously on Aldactone as well. Will hold Aldactone at this time. Recommend to monitor blood pressure daily. If blood pressure remains less than 120 systolic she may need to hold her blood pressure medication. At discharge patient will continue with Norvasc 5 mg daily and atenolol 25 mg daily. Will discontinue Aldactone at this time. Further adjustment in medication can be done by her PCP or nephrology. 5. CT scan showed endometrial thickening pain. Patient is to see gynecology soon to further monitor and address. Diet: AHA Activity: Ad ba Time spent managing pt's care (in minutes): 55
[2019-11-19 13:58] VITALS: BP 180/76; TEMP 97.7
== END 2019-11-19 12:37 | disposition home or self-care (01) | DRG 872 ==
LOC: ER 22:01 → ERHOLD 11-17 01:58 → 2ND 11-17 02:01
PROVIDERS: ADMIT Hospitalist; ATTEND Family Medicine
DX: A41.9 Sepsis, unspecified organism (principal); N10 Acute pyelonephritis; N17.9 Acute kidney failure, unspecified; Z79.899 Other long term (current) drug therapy; Z90.49 Acquired absence of other specified parts of digestive tract; D72.829 Elevated white blood cell count, unspecified; I12.9 Hypertensive chronic kidney disease with stage 1 through stage 4 chronic kidney disease, or unspecified chronic kidney disease; E83.42 Hypomagnesemia; E86.0 Dehydration; R93.89 Abnormal findings on diagnostic imaging of other specified body structures; N18.2 Chronic kidney disease, stage 2 (mild); B96.20 Unspecified Escherichia coli [E. coli] as the cause of diseases classified elsewhere
CPT/HCPCS: 36415; 71045; 74176; 76377; 80048; 80053; 80076; 81003; 81015; 83605; 83735; 83880; 84145; 84484; 85025; 85610; 87040; 87077; 87086; 87088; 87186; 93005; 99285; J0696; J1644; J2405; J3475; J7030; J7040

== ENCOUNTER 2020-10-29 12:07 | Day surgery (SDC) | payer OTHER ==
[2020-10-29] MEDS ORDERED: Ringers Lactate 1,000 ML IV ONE (12:30)
[2020-10-29] MEDS ORDERED: propofoL 200 MG/20 ML VIAL IV ONE ×2 (15:12→16:29)
[2020-10-29] MEDS ORDERED: FENTANYL CITR 100 MCG/2 ML ONE (15:12)
[2020-10-29] MEDS ORDERED: LIDOCAINE 1% MPF 30 ML VIAL ONE (15:13)
[2020-10-29] MEDS ORDERED: ONDANSETRON 4 MG/2 ML VIAL ONE (15:13)
[2020-10-29] MEDS ORDERED: LIDOCAINE 1% W/EPI 1:100,000 MDV 20 ML VIAL ONE (15:44)
[2020-10-29] MEDS ORDERED: KETOROLAC 30 MG/ML INJ ONE (16:40)
[2020-10-29 17:41] VITALS: BP 155/60; TEMP 97.3; O2SAT 100
--- NOTE | 2020-10-29 22:20 | OP ---
Date of Procedure: 10/29/2020 Surgeon: Marie Norwood MD Preoperative Diagnosis: Thickened endometrium. Postoperative Diagnosis: Thickened endometrium and large endometrial polyp and stage III posterior p rolapse which was greater than the anterior stage II prolapse and uterine prolapse. Procedures Performed: Operative hysteroscopy, D and C, polypectomy, MyoSure was used. Anesthesia: MAC plus paracervical block. Specimens: Endometrial polyp and curettings. Complications: No complications. Drains: No drains. Condition: The patient's condition stable. Findings: Uterine cavity anteflexed and cervical stenosis was significant. Once this was going to p ass, uterine cavity was entered and there was a large endometrial polyp in the posterior wall that wa s heterogeneous, completely removed with MyoSure device and sampling performed adequately. The cavit y appeared to be otherwise unremarkable. Indications: The patient is an 85-year-old female, referred from her primary care due to some abdomi nal discomfort. Dr. Mcmullen actually referred her over for an enlarged uterus. So, once she was ev aluated, also had complained of left lower quadrant pain and her rectocele was discovered. On ultras ound assessment, her endometrial stripe was 2.7 cm in thickness and so discussed about that she did n ot have any postmenopausal bleeding; however, despite the heterogeneous nature of this, there is a po ssibility that there was a polyp and so given that she has prolapse, we thereafter decided whether th e uterus . The endometrial sampling was also important, so she was consented for hysterosc opy, D and C, polypectomy, myomectomy. Bleeding, infection, injury to the bowel, bladder and injury to the uterus and bowel were all discuss ed with the patient. She consented and brought to the OR. In preop area, the consent was redone and she was brought to the OR. Procedure In Detail: She was placed in supine fashion on the operating table, MAC was given, placed in a dorsal lithotomy position. Pelvic exam performed. Uterus anteflexed. POP-Q . The c ervix was injected with 1% lidocaine with epi at 12 o'clock position 5 cc and at 4 and 8 o'clock posi tions of the cervicovaginal junction other 5 cc each. Then, prep x3 with Betadine was done. Anterio r lip was grasped with 2 Allis clamps. A diagnostic hysteroscopy was used to enter the cervical evangelina l. Under direct visualization, the cervical canal was traversed. There was a part of cervical canal that was completely occluded and this was gently passed through based on the orientation of the uter us and once the stenotic part was brought in the past, then I went into the uterine cavity and there was a large endometrial polyp that was visualized. It was heterogeneous and multi-cystic arising fro m the posterior wall and the right lateral wall. The tubal ostia were well visualized. The rest of the endometrium appeared to be unremarkable, small cystic change. The diagnostic scope was removed. Operative hysteroscope was introduced in the uterine cavity after being primed. The MyoSure device was connected and ready to go. Then, the MyoSure LITE was inserted through the operative hysteroscope and the polypectomy was performed completely. All the entire giuliano yp was removed and cavity was sampled for curettings and then all these were sent out for permanent p athology. There was a 1.5 cm part of the polyp that was removed intact, sent over for pathology as w brynn. Instrument, needle, and sponge counts were done and were correct at the end of the case after t he instruments were removed and the patient tolerated the procedure well. The fluid deficit was norm al saline 310 mL, tolerated the procedure well. She has a 1-week followup appointment with me and I spoke to her grandson. REBECCA/RONAN Voice ID: [id number] Report ID: [id number]
== END 2020-10-29 17:38 | disposition home or self-care (01) ==
LOC: OR 12:07
PROVIDERS: ATTEND Obstetrics & Gynecology
PROC: 0UDB8ZX Extraction of Endometrium, Via Natural or Artificial Opening Endoscopic, Diagnostic (ICD-10-PCS; 2020-10-29)
PROC: 0UB98ZX Excision of Uterus, Via Natural or Artificial Opening Endoscopic, Diagnostic (ICD-10-PCS; principal; 2020-10-29 08:30)
DX: N84.0 Polyp of corpus uteri (principal); N18.6 End stage renal disease; R19.09 Other intra-abdominal and pelvic swelling, mass and lump; I10 Essential (primary) hypertension; R10.32 Left lower quadrant pain; Z20.822 Contact with and (suspected) exposure to COVID-19
CPT/HCPCS: 93005; 88305; 58558; U0002; J2704 ×2; J3010; J7120; J2405

== ENCOUNTER 2022-07-19 09:31 | Emergency (ER) | payer OTHER ==
--- OUTSIDE RECORDS SUMMARY | 2022-07-19 09:35 | XMS REPORT | Continuity of Care Document ---
:1935 Author Organization [facility] t Address [address] [place] [address] Care Team Providers Name Role Phone Alberto Tyler MD Primary Care Physician [phone] Marie Norwood Attending Clinician Unavailable VISIT, NURSE STRB SLEEP Attending Clinician Unavailable Christina Vera Attending Clinician Marie Norwood Admitting Clinician Unavailable UNDEFINED Admitting Clinician Unavailable Payers Payer Name Policy Type Policy Number Effective Date Expiration Date S ource Problems Condition Condition Condition Status Onset Resolution Last Treating Co mments Source Name Details Category Date Date Treatment Clinician Date Obesity Obesity Problem Active 2018-10-29 Me moria (disorder) (disorder) 23:23:17 l Active [facility] Problem 10/29/2018 [facility] Group Obstructiv Obstructi Problem Active 2018-10-29 Memoria e sleep ve sleep 23:23:17 l apnea apnea [place] syndrome syndrome (disorder) (disorder) Active Problem 10/29/2018 Data migrated from [facility] [facility] on 12/22/14. Medical Group Pain Pain Problem Active 2018-10-29 Josefinaor aleks (finding) (finding) 23:23:17 l Active [facility] Problem 10/29/2018 Medical Group Essential Essential Problem Active 2018-10-29 Memoria hypertensi hypertensi 23:23:17 l on on [place] (disorder) (disorder) Active Problem 10/29/2018 Data migrated from [employer] on 12/22/14. Medical Group Allergies, Adverse Reactions, Alerts Allergy Allergy Status Severity Reaction(s) Onset Inactive Treating Comm ents Source Name Type Date Date Clinician No Known DA Active U [facility] Allergie 14 Clear s 00:00: Strange 00 [facility] Social History Social Habit Start Date Stop Date Quantity Comments Source Alcohol intake 2017-07-03 2017-07-03 Current drinker [facility] 00:00:00 00:00:00 of [facility] (finding) Alcohol Comment 2017-07-03 2017-07-03 socially [facility] 00:[facility]00 Hospital Tobacco use and 2017-07-03 2017-07-03 Smokeless tobacco Me [facility] exposure 00:00:00 00:00:00 non-user Hospital Sex Ass[birth year] At [birth year] [facility] 00:00:00 00:00:00 Hospital Smoking Status Start Date Stop Date Source Social History [facility] Medications Ordered Filled Start Stop Current Ordering Indication Dosage Frequency Signature Comments Components Source Medication Medication Date Date Medication? Clinician (SIG) Name Name amLODIPine 2016-07 Yes [facility] (NORVASC) 5 1-24 st mg tablet 00:00: Hospita 00 l amLODIPine 2016-07 Yes [facility] (NORVASC) 5 1-[facility] st mg tablet 00:00: Hospita 00 l spironolact 2016-07 Yes 25mg QD Take 25 mg [facility] one 1-[address] (ALDACTONE) 00:00: once Hospit a 25 MG 00 daily. l tablet spironolact 2016-07 Yes 25mg QD Take 25 mg [facility] one 1-[address] (ALDACTONE) 00:00: once Hospit a 25 MG 00 daily. l tablet atenolol 2016-07 Yes [facility] (TENORMIN) 0-22 st 25 MG 00:00: Hospita tablet 00 l atenolol 2016-07 Yes [facility] (TENORMIN) [facility]-22 st 25 MG 00:00: Hospita tablet 00 l Vital Signs Vital Name Observation Time Observation Value Comments Source Weight 2018-03-03 13:13:00 [facility] Height 2018-03-03 13:13:00 149.86 cm [facility] [place] BMI Calculated 2018-03-03 13:13:00 [facility] Heart Rate 2018-03-03 13:13:00 [facility] Temperature Oral (F) 2018-03-03 13:13:00 98.4 F [facility] Systolic (mm Hg) 2018-03-03 13:13:00 Severino [facility] Diastolic (mm Hg) 2018-03-03 13:13:00 [facility] [place] BMI Calculated 2017-11-25 13:23:00 [facility] [place] Weight 2017-11-25 13:23:00 [facility] Height 2017-11-25 13:23:00 149.86 cm [facility] [place] Heart Rate 2017-11-25 13:23:00 [facility] [place] Temperature Oral (F) 2017-11-25 13:23:00 97.9 F [facility] Systolic (mm Hg) 2017-11-25 13:23:00 Severino rial [facility] Diastolic (mm Hg) 2017-11-25 13:23:00 [facility] Procedures Procedure Date / Time Performed Performing Clinician Kanwal velasco [id number] [facility]04[facility]09 [id number] 2022-04-09 00:[facility]:00 [facility] [id number] 2022-04-09 00:00:00 [facility] [id number] 2022-04-09 00:00:00 [facility] [id number] 2022-04-09 00:00:00 [facility] [id number] 2022-04-09 00:00:00 [facility] [id number] 2022-04-09 00:00:00 [facility] Procedure<sup>1</sup> 2016-09-23 06:00:00 Isaura al [place] Full sleep 2011-11-02 05:00:00 [facility] study<sup>2</sup> Operation<sup>4</sup> [facility] Hardy russ Operation on shoulder [facility] joint<sup>5</sup> Plan of Care Planned Activity Planned Date Details Comments Source Future Scheduled 2022-07-09 COVID-19 VACCINE (#1) [facility] Test 19:54:45 [code = COVID-19 VACCINE (#1)] Future Scheduled 2022-07-09 SHINGLES VACCINES ([address] [facility] Test 19:54:45 of 2) [code = SHINGLES VACCINES (1 of 2)] Future Scheduled 2022-07-09 65+ PNEUMOCOCCAL [facility] Test 19:54:45 VACCINE (1 - PCV) [code = 65+ PNEUMOCOCCAL VACCINE (1 - PCV)] Future Scheduled 2022-07-09 INFLUENZA VACCINE [email or web address] Test 19:54:45 [code = INFLUENZA VACCINE] Future Scheduled 2022 COVID-19 VACCINE (#1) [facility] Test 08:33:49 [code = COVID-19 VACCINE (#1)] Future Scheduled 2022 SHINGLES VACCINES ([address] [facility] Test 08:33:49 of 2) [code = SHINGLES VACCINES (1 of 2)] Future Scheduled 2022 65+ PNEUMOCOCCAL [facility] Test 08:33:49 VACCINE (1 - PCV) [code = 65+ PNEUMOCOCCAL VACCINE (1 - PCV)] Future Scheduled 2022 INFLUENZA VACCINE Method [facility] Test 08:33:49 [code = INFLUENZA VACCINE] Future Scheduled [address] [facility] Test 08:33:49 (1 of 3 - 3-dose series) [code = HEPATITIS B VACCINES (1 of 3 - 3-dose series)] Encounters Start End Encounter Admission Attending Care Care Encounter Source Date/Time Date/Time Type Type Clinicians Facility Department ID 2022-04-10 2022-04-12 Inpatient LEIGH Florian [id number].01 [id number] [facility] 23:26:00 12:52:[address] [place] [address] 2018-10-27 2018-10-27 Ambulatory nullFlavo [facility] [id number] Memoria 13:00:00 13:00:00 [facility] 2018-10-27 2018-10-27 [place] [id number] Memoria 13:00:00 13:00:00 [facility] 2018-10-27 2018-10-27 Outpatient MHIE ALOIE [id number] Memoria 08:00:00 08:00:00 06 carlos [address] 2018-10-27 2018-10-27 [id number] 08:00:00 08:00:00 NURSE STRB 06 SLEEP 2018-03-03 2018-03-04 [place] [id number] Memoria 13:15:00 04:59:59 [facility] 2018-03-03 2018-03-04 [place] [id number] Memoria 13:15:00 04:59:59 r [facility] 2018-03-03 2018-03-03 [facility] [id number] 08:15:00 23:59:59 NURSE STRB 05 SLEEP 2018-03-03 2018-03-03 Outpatient ALOIE ALOIE [id number] Memoria 08:15:00 08:15:00 05 carlos [address] 2017-11-25 2017-11-26 [place] [id number] Memoria 13:30:00 04:59:59 r Internal 04 l [facility] [address] 2017-11-25 2017-11-26 [place] [id number] Memoria 13:30:00 04:59:59 r Internal 04 l [facility] [address] [place] 2017-11-25 2017-11-25 [facility] [id number] 08:30:00 23:59:59 NURSE STRB 04 SLEEP 2017-11-25 2017-11-25 [place] [id number] Memoria 13:30:00 13:30:00 Pre-Reg r Internal 03 l [facility] [address] 2017-11-25 2017-11-25 [place] [id number] Memoria 13:30:00 13:30:00 [facility] 2017-11-25 2017-11-25 Outpatient MHIE MHIE [id number] Memoria 08:30:00 08:30:00 03 carlos Ga 2017-11-25 2017-11-25 Outpatient MHIE MHIE [id number] Memoria 08:30:00 08:30:00 04 carlos Ga 2017-11-25 2017-11-25 Outpatient LENORE Vera MG [id number] 08:30:00 08:30:00 Christinablanca Davis 2016-11-26 2016-11-26 Outpatient MHIE MHIE [id number] Memoria 08:15:00 08:15:00 02 carlos Ga 2016-11-26 2016-11-26 Outpatient MHIE MHIE [id number] Memoria 08:15:00 08:15:00 02 carlos Ga 2016-10-22 2016-10-22 Outpatient MHIE MHIE [id number] Memoria 13:30:00 13:30:00 01 carlos Ga 2016-10-22 2016-10-22 Outpatient MHIE MHIE [id number] Memoria 13:30:00 13:30:00 01 carlos Ga 2015-10-24 2015-10-24 Outpatient MHIE MHIE [id number] Memoria 13:45:00 13:45:00 00 carlos Ga 2015-10-24 2015-10-24 Outpatient MHIE MHIE [id number] Memoria 13:45:00 13:45:00 00 carlos Ga Results Test Description Test Time Test Comments Results Result [facility] e Comments - CT ABD PELVIS 2022-04-12 W/O CONT 09:29:00 [facility] : 1935 Sex: F Name: AUTUMN HERNANDEZ [facility] [place] : 1935 Age/S: 87 / F [address] Unit #: [id number] Loc: [place] [address] Phys: Jose Bone MD Acct: [id number] Dis Date: Status: ADM IN PHONE #: [phone] Exam Date: 04/12/202255 FAX #: Reason: ARF EXAMS: CPT: [id number] CT ABD PELVIS W/O CONT 38503 EXAM: - CT ABD PELVIS W/O CONT LOCATION: H65 TECHNIQUE: Serial axial CT images were obtained from above the diaphragm to the proximal femurs without the administration of intravenous contrast. Oral contrast was not administered. Phase(s): Non-contrast Reformats: Standard coronal and sagittal reformats. This exam was performed according to our departmental dose-optimization program, which includes automated exposure control, adjustment of the mA and/or kV according to patient size and/or use of iterative reconstruction technique. Unless otherwise specified, incidental findings do not require dedicated imaging follow-up. COMPARISON: None available. HISTORY: ARF FINDINGS: Statements: Lack of intravenous contrast limits evaluation of abdominopelvic organs and vasculature. LUNG BASES: Included images of the lower chest demonstrate no abnormalities. LIVER: Normal attenuation and contour without focal lesion. BILIARY: Status post cholecystectomy. No intrahepatic or extrahepatic biliary ductal dilation. PANCREAS: Unremarkable. SPLEEN: Unremarkable. ADRENALS: Unremarkable. KIDNEYS: The kidneys appear normal in size. There is no evidence of hydronephrosis or renal calculus. Trace perinephric stranding noted bilaterally. GENITOURINARY: The ureters are nondilated throughout. Bladder is PAGE 1 Signed Report (CONTINUED) Name: AUTUMN HERNANDEZ [facility] : 1935 Age/S: 87 / F [address] Unit #: [id number] Loc: [place] [address] Phys: Jose Bone MD Acct: [id number] Dis Date: Status: ADM IN PHONE #: [phone] Exam Date: 04/12/2022 0855 FAX #: Reason: ARF EXAMS: CPT: [id number] CT ABD PELVIS W/O CONT 25166 (Continued) partially collapsed, Kirkland catheter. No definite wall thickening, but there is mild surrounding soft tissue stranding. The uterus is unremarkable. No suspicious adnexal masses. GASTROINTESTINAL: The distal esophagus is unremarkable. The stomach is collapsed and poorly assessed. The small and large bowel loops demonstrate no signs of obstruction or inflammation. Few colonic diverticula are present. The appendix is normal. VASCULAR: The abdominal aorta is nonaneurysmal. Moderate atherosclerosis. LYMPH NODES: No enlarged lymph nodes. MESENTERY: Grossly unremarkable with no free air or loculated fluid collections. SOFT TISSUES: Unremarkable. BONES: No acute osseous findings. Posterior disc osteophyte formation at the T12-L1 and L2-L3 levels. Moderate broad-based disc bulge at L4-L5. These findings result in multilevel mild to moderate thecal sac compression at the corresponding levels and multilevel bilateral neural foraminal narrowing from L4-S1. IMPRESSION: Suspect mild cystitis. No hydronephrosis. at 0929 Reported and signed by: Bud Millan D.O. CC: Marie Norwood MD; Jose Bone MD Technologist:Rosalba Licona, RT(R) CTDI: DLP: Trnscb Date/Time: 04/12/2022 (09) [email or web address] Orig Print D/T: S: 04/12/2022 (8632) PAGE 2 Signed Report BASIC METABOLIC PANEL 2022-04-12 04:13:00 Test Item Value Reference Range Interpretation Comme nts SODIUM (test code = NA) 142 mmol/L 134-147 N POTASSIUM (test code = K) 4.5 mmol/L 3.4-5.0 N CHLORIDE (test code = CL) 115 mmol/L 100-108 H CARBON DIOXIDE (test code = CO2) 21 mmol/L 21-32 N ANION GAP (test code = GAP) 6.0 GAP calc 4.0-15.0 N GLUCOSE (test code = GLU) 95 MG/DL 70-110 N BLOOD UREA NITROGEN (test code = BUN) 36 MG/DL 7-18 H GLOMERULAR FILTRATION RATE (test code = GFR) 41 estGFR >60 L CREATININE (test code = CREAT) 1.3 MG/DL 0.6-1.0 H CALCIUM (test code = CA) 8.0 MG/DL 8.5-10.1 L RENAL FUNCTION [id number] 04:13:00 Test Item Value Reference Range Interpretation Comments ALBUMIN (test code = ALB) 2.4 G/DL 3.4-5.0 L PHOSPHOROUS (test code = PHOS) 2.5 MG/DL 2.5-4.9 N UR SODIUM [id number] 03:27:00 Test Item Value Reference Range Interpretation Comments UR SODIUM RANDOM 61 MEQ/L The Referen ce Range and (test code = ERIKA) Method Per formance specificationsh ave not been established for this fluid. The test result should be correlated into the clinical context forinte rpretation. UR SODIUM [id number] 03:27:00 Test Item Value Reference Range Interpretation Comments UR SODIUM RANDOM 61 MEQ/L See_Comment The Referen ce Range and (test code = ERIKA) Method Per formance specificationsh ave not been established for this fluid. The test result should be correlated into the clinical context forinte rpretation. [Automated mess age] The system which ge nerated this result transmit petr reference range: (). The reference range was not u sed to interpret this result as normal/abnormal . UR PROTEIN [id number] 03:27:00 Test Item Value Reference Range Interpretation Comments UR PROTEIN TOTAL (test code = 21.5 MG/DL 0.0-12.0 H PROTU) UR CREATININE [id number] 03:27:00 Test Item Value Reference Range Interpretation Comments UR CREATININE RANDOM (test code = 27.0 MG/DL 30-125 L CREATU) BASIC METABOLIC [id number] 12:32:00 Test Item Value Reference Range Interpretation Comments SODIUM (test code = NA) 141 mmol/L 134-147 N POTASSIUM (test code = K) 4.0 mmol/L 3.4-5.0 N CHLORIDE (test code = CL) 111 mmol/L 100-108 H CARBON DIOXIDE (test code = CO2) 23 mmol/L 21-32 N ANION GAP (test code = GAP) 7.0 GAP calc 4.0-15.0 N GLUCOSE (test code = GLU) 119 MG/DL 70-110 H BLOOD UREA NITROGEN (test code = 42 MG/DL 7-18 H BUN) GLOMERULAR FILTRATION RATE (test 35 estGFR >60 L code = GFR) CREATININE (test code = CREAT) 1.5 MG/DL 0.6-1.0 H CALCIUM (test code = CA) 8.3 MG/DL 8.5-10.1 L URIC [id number] 12:32:00 Test Item Value Reference Range Interpretation Comments URIC ACID (test code = URIC) 6.7 MG/DL 2.6-6.0 H - XR CHEST 1 [id number] 11:29:00 [facility] : 1935 Sex: F Name: AUTUMN HERNANDEZ [facility] : 1935 Age/S: 87 / F [address] Unit #: [id number] Loc: [place] [address] Phys: Francis Howe MD Acct: [id number] Dis Date: Status: ADM IN PHONE #: [phone] Exam Date: 04/11/2022 1127 FAX #: Reason: cough EXAMS: CPT: [id number] XR CHEST 1 V 44639 Fluoro Time: DAP (Gy m2): Air Kerma (mGy): Location: T 18 EXAM: - XR CHEST 1 V DATE: 04/11/2022 10:23 AM HISTORY: cough COMPARISON: Chest x-ray 04/07/2022 FINDINGS: Low lung volumes. No airspace consolidation, pleural effusions or pneumothorax. The cardiovascular silhouette is within normal limits. Right shoulder arthroplasty. IMPRESSION: Low lung volumes.. at 1129 Reported and signed by: Cheryl Wilson M.D. CC: Francis Howe MD; Marie Norwood MD PAGE 1 Signed Report Name: AUTUMN HERNANDEZ [facility] : 1935 Age/S: 87 / F [address] Unit #: [id number] Loc: [place] [address] Phys: Francis Donato MD Acct: [id number] Dis Date: Status: ADM IN PHONE #: [phone] Exam Date: 124 FAX #: Reason: cough EXAMS: CPT: [id number] XR CHEST 1 V 39011 Fluoro Time: DAP (Gy m2): Air Kerma (mGy): (Continued) Technologist: Lori Choi RT(R) Trnscb Date/Time: 04/11/2022 (1128) [email or web address].[email or web address] Orig Print D/T: S: 04/11/2022 (1133) PAGE 2 Signed Report- [facility]2022-09-17 10:27:00[facility] : 1935 Sex: F Name: AUTUMN HERNANDEZ [facility] : 1935 Age/S: 87 / F [address] [address] Unit #: [id number] Loc: [place] [address] Phys: Jose Bone MD Acct: [id number] Dis Date: Status: ADM IN PHONE #: [phone] Exam Date: 04/11/2022 0951 FAX #: Reason: arf EXAMS: CPT: [id number] [place] RETROPERITONEAL COM [id number] EXAM: Ultrasound renal LOCATION: C3 HISTORY: arf COMPARISON: None available at the time of interpretation. TECHNIQUE: Grayscale B-mode and color Doppler sonographic images of thekidneys and urinary bladder were performed. FINDINGS: The right kidney measures 9.7 x 5.2 x 4.2 cm.No hydronephrosis. No focal lesions. The left kidney measures 8.6 x 4.2 x 3.9 cm. No hydronephrosis. No focal lesions. Kirkland catheter is identified within the urinary bladder. IMPRESSION: Normal appearance of the kidneys bilaterally without hydronephrosis. at 1027 Reported and signed by: ALEXANDRA SHABAZZ M.D. CC: Marie Norwood MD; Jose Bone MD Technologist: Adeline Zimmerman Trnscb Date/Time: 04/11/2022 (1027) [email or web address] PAGE 1 Signed Report Name: AUTUMN HERNANDEZ [facility] : 1935 Age/S: 87 / F [address] [address] Unit #: [id number] Loc: [place] [address] Phys: Jose Bone MD Acct: [id number] Dis Date: Status: ADM IN PHONE #: [phone] Exam Date: 04/11/2022 0951 FAX #: Reason: arf EXAMS: CPT: [id number] US RETROPERITONEAL COM [id number] (Continued) Orig Print D/T: S: 04/11/2022 (1030) Probe: PAGE 2 Signed ReportCBC W/AUTO [id number] 06:14:00 Test Item Value Reference Range Interpretation Comments WHITE BLOOD CELL (test code = 9.3 K/mm3 3.5-11.0 N WBC) RED BLOOD CELL (test code = 2.96 M/mm3 4.70-6.10 L RBC) HEMOGLOBIN (test code = HGB) 9.5 G/DL 10.4-14.9 L HEMATOCRIT (test code = HCT) 28.8 % 31.5-44.1 L MEAN CELL VOLUME (test code = 97.3 Fl 84.5-98.6 N MCV) MEAN CELL HGB (test code = MCH) 32.1 pg 27.0-34.2 N MEAN CELL HGB CONCETRATION 33.0 G/DL 31.5-34.0 N (test code = MCHC) RED CELL DISTRIBUTION WIDTH 12.6 SD 11.5-14.5 N (test code = RDW) PLATELET COUNT (test code = 107 K/mm3 150-450 L PLT) MEAN PLATELET VOLUME (test code 13.90 fL 7.0-10.5 H = MPV) NEUTROPHIL % (test code = NT%) 67.0 % 40-76 IMMATURE GRANULOCYTE % (test 0.3 % 0.0-5.0 N code = IG%) LYMPHOCYTE % (test code = LY%) 17.2 % 20.5-51.1 L MONOCYTE % (test code = MO%) 11.7 % 1.7-9.3 H EOSINOPHIL % (test code = EO%) 3.3 % 0.0-6.0 N BASOPHIL % (test code = BA%) 0.5 % 0.0-2.0 N NUCLEATED RBC % (test code = 0.0 /100WBC% 0.0-1.0 N NRBC%) NEUTROPHIL # (test code = NT#) 6.2 K/mm3 1.8-7.6 N IMMATURE GRANULOCYTE # (test 0.03 x10 3/uL 0.00-0.03 N code = IG#) LYMPHOCYTE # (test code = LY#) 1.6 K/mm3 0.6-3.2 N MONOCYTE # (test code = MO#) 1.1 K/mm3 0.3-1.1 N EOSINOPHIL # (test code = EO#) 0.3 K/mm3 0.0-0.4 N BASOPHIL # (test code = BA#) 0.1 K/mm3 0.0-0.1 N NUCLEATED RBC # (test code = 0.0 K/mm3 0.0-0.1 N NRBC#) MANUAL DIFF REQUIRED (test code NO DIFF/SCN CRITERIA = MDIFF) RBC [id number] 06:14:00 Test Item Value Reference Range Interpretation Comments PLATELET ESTIMATE (test SLIGHTLY DECREASED ADEQUATE code = PLTEST) THOUSAND PLATELET MORPHOLOGY LARGE PLATELETS (test code = PLTMORPH) BASIC METABOLIC [id number] 17:56:00 Test Item Value Reference Range Interpretation Comments SODIUM (test code = NA) 140 mmol/L 134-147 N POTASSIUM (test code = K) 4.6 mmol/L 3.4-5.0 N CHLORIDE (test code = CL) 110 mmol/L 100-108 H CARBON DIOXIDE (test code = CO2) 22 mmol/L 21-32 N ANION GAP (test code = GAP) 8.0 GAP calc 4.0-15.0 N GLUCOSE (test code = GLU) 112 MG/DL 70-110 H BLOOD UREA NITROGEN (test code = 45 MG/DL 7-18 H BUN) GLOMERULAR FILTRATION RATE (test 24 estGFR >60 L code = GFR) CREATININE (test code = CREAT) 2.1 MG/DL 0.6-1.0 H CALCIUM (test code = CA) 8.4 MG/DL 8.5-10.1 L UA RFLX MICR CULT IF [id number] 16:35:00 Test Item Value Reference Range Interpretation Comments UA COLOR (test code = YELLOW discript YEL/STRAW COLU) UA APPEARANCE (test code CLEAR discript CLEAR = APPU) UA GLUCOSE DIPSTICK (test NEGATIVE mg/dL NEG code = DGLUU) UA BILIRUBIN DIPSTICK NEGATIVE mg/dL NEG (test code = BILU) UA KETONE DIPSTICK (test NEGATIVE mg/dL NEG code = KETU) UA SPECIFIC GRAVITY (test 1.025 SG 1.005-1.030 code = SGU) UA BLOOD DIPSTICK (test 2+ mg/DL NEG A code = RADHIKA) UA PH DIPSTICK (test code 5.5 pH UNITS 5.0-7.0 = AARON) UA PROTEIN DIPSTICK (test 2+ mg/dL NEG A code = PROU) UA UROBILINIOGEN DIPSTICK 0.2 mg/dL <2.0 (test code = URO) UA NITRITE DIPSTICK (test NEGATIVE SCREEN NEG code = CHEKO) UA LEUKOCYTE ESTERASE 1+ Leuk/mcL NEGATIVE A DIPSTICK (test code = LEUU) UA CULTURE NEEDED? (test NO, WBC<10 Criteria Culture CHK code = UACULT) UA WBC (test code = WBCU) 5-10 #WBC/HPF 0-3 A UA RBC (test code = RBCU) 3-5 #RBC/HPF 0-3 A UA BACTERIA (test code = TRACE /HPF NONE-TRACE BACU) UA SQUAMOUS CELLS (test TRACE /HPF NONE code = SQU) Indication for culture: RiskForSepsis-no [facility] W/AUTO [id number] 05:27:00 Test Item Value Reference Range Interpretation Comments WHITE BLOOD CELL (test code = 13.4 K/mm3 3.5-11.0 H WBC) RED BLOOD CELL (test code = 2.99 M/mm3 4.70-6.10 L RBC) HEMOGLOBIN (test code = HGB) 9.6 G/DL 10.4-14.9 L HEMATOCRIT (test code = HCT) 28.5 % 31.5-44.1 L MEAN CELL VOLUME (test code = 95.3 Fl 84.5-98.6 N MCV) MEAN CELL HGB (test code = MCH) 32.1 pg 27.0-34.2 N MEAN CELL HGB CONCETRATION 33.7 G/DL 31.5-34.0 N (test code = MCHC) RED CELL DISTRIBUTION WIDTH 12.3 SD 11.5-14.5 N (test code = RDW) PLATELET COUNT (test code = 122 K/mm3 150-450 L PLT) MEAN PLATELET VOLUME (test code 13.80 fL 7.0-10.5 H = MPV) NEUTROPHIL % (test code = NT%) 83.3 % 40-76 H IMMATURE GRANULOCYTE % (test 0.3 % 0.0-5.0 N code = IG%) LYMPHOCYTE % (test code = LY%) 7.6 % 20.5-51.1 L MONOCYTE % (test code = MO%) 8.7 % 1.7-9.3 N EOSINOPHIL % (test code = EO%) 0.0 % 0.0-6.0 N BASOPHIL % (test code = BA%) 0.1 % 0.0-2.0 N NUCLEATED RBC % (test code = 0.0 /100WBC% 0.0-1.0 N NRBC%) NEUTROPHIL # (test code = NT#) 11.2 K/mm3 1.8-7.6 H IMMATURE GRANULOCYTE # (test 0.04 x10 3/uL 0.00-0.03 H code = IG#) LYMPHOCYTE # (test code = LY#) 1.0 K/mm3 0.6-3.2 N MONOCYTE # (test code = MO#) 1.2 K/mm3 0.3-1.1 H EOSINOPHIL # (test code = EO#) 0.0 K/mm3 0.0-0.4 N BASOPHIL # (test code = BA#) 0.0 K/mm3 0.0-0.1 N NUCLEATED RBC # (test code = 0.0 K/mm3 0.0-0.1 N NRBC#) MANUAL DIFF REQUIRED (test code NO DIFF/SCN CRITERIA = MDIFF) BASIC METABOLIC [id number] 05:18:00 Test Item Value Reference Range Interpretation Comments SODIUM (test code = NA) 136 mmol/L 134-147 N POTASSIUM (test code = K) 5.1 mmol/L 3.4-5.0 H CHLORIDE (test code = CL) 108 mmol/L 100-108 N CARBON DIOXIDE (test code = CO2) 22 mmol/L 21-32 N ANION GAP (test code = GAP) 6.0 GAP calc 4.0-15.0 N GLUCOSE (test code = GLU) 107 MG/DL 70-110 N BLOOD UREA NITROGEN (test code = 43 MG/DL 7-18 H BUN) GLOMERULAR FILTRATION RATE (test 28 estGFR >60 L code = GFR) CREATININE (test code = CREAT) 1.8 MG/DL 0.6-1.0 H CALCIUM (test code = CA) 8.7 MG/DL 8.5-10.1 N [id number] 05:18:00 Test Item Value Reference Range Interpretation Comments MAGNESIUM (test code = MAG) 2.1 MG/DL 1.8-2.4 N UR HCG [id number] 14:05:00 Test Item Value Reference Range Interpretation Comments UR HCG QUAL (test code = HCGQLU) NEGATIVE NEGATIVE COVID 19 INHOUSE [id number] 14:02:00 Test Item Value Reference Range Interpretation Comments COVID 19 INHOUSE AG NEGATIVE Negative Per manu facturer, (test code = negative result s should [id number]) be treated aspr esumptive and, if inconsi stent with clinical signs andsymptoms or necessary for patient man agement, should betested with an alternative mol ecular assay. Negative resultsdo not preclude SA RS-CoV-2 infection and s hould not be usedas the s ole basis for patient man agement decisions. Nega tive results should be considered in t he context of apatient's r ecent exposures, hist ory, presence of cli nicalsigns and symptoms co nsistent with COVID-19. BASIC METABOLIC [id number] 13:44:00 Test Item Value Reference Range Interpretation Comments SODIUM (test code = NA) 139 mmol/L 134-147 N POTASSIUM (test code = K) 5.0 mmol/L 3.4-5.0 N CHLORIDE (test code = CL) 110 mmol/L 100-108 H CARBON DIOXIDE (test code = CO2) 22 mmol/L 21-32 N ANION GAP (test code = GAP) 7.0 GAP calc 4.0-15.0 N GLUCOSE (test code = GLU) 90 MG/DL 70-110 N BLOOD UREA NITROGEN (test code = 42 MG/DL 7-18 H BUN) GLOMERULAR FILTRATION RATE (test 30 estGFR >60 L code = GFR) CREATININE (test code = CREAT) 1.7 MG/DL 0.6-1.0 H CALCIUM (test code = CA) 9.3 MG/DL 8.5-10.1 N PROTHROMBIN [id number] 13:37:00 Test Item Value Reference Range Interpretation Comments PT PATIENT (test 10.8 SECONDS 9.3-12.9 N code = PTP) INTERNATIONAL NORMAL 0.95 INR Unit 0.8-1.2 N TARGE T INR BY RATIO (test code = INDICATIO N Indication INR) INR1. Prophylax is of venous thrombos is 2.0 - 3.0 (orthoped ic surgery), Proph ylaxis of venous throm bosis (other than hig h-risk surgery), Treat ment of Deep Vein Thrombosis/Pulm onary Embolism, Preve ntion of systemic emb olism - Tissue heart va lves, Acute Myocardia l Infarction (to prevent systemic emboli sm), Valvular heart disease, Acute Myocardial Infa rction (to prevent sys temic embolism), Valv ular heart disease, Atrial Fibrillation, Bileaflet mecha nical valve in aortic position.2. Mec hanical prosthetic valv es (high risk), 2. 5 - 3.5 Presence of Lup us Anticoagulant o r Antiphospholipi d Antibodies, Pre vention of systemic emb olism - Acute Myocardia l Infarction (to prevent recurrent infar ct). THROMBOPLASTIN TIME [id number] 13:37:00 Test Item Value Reference Range Interpretation Comments THROMBOPLASTIN TIME PARTIAL 33.5 SECONDS 26-35 N (test code = PTT) CBC W/AUTO [id number] 13:35:00 Test Item Value Reference Range Interpretation Comments WHITE BLOOD CELL (test code = 7.7 K/mm3 3.5-11.0 N WBC) RED BLOOD CELL (test code = 3.82 M/mm3 4.70-6.10 L RBC) HEMOGLOBIN (test code = HGB) 12.1 G/DL 10.4-14.9 N HEMATOCRIT (test code = HCT) 36.3 % 31.5-44.1 N MEAN CELL VOLUME (test code = 95.0 Fl 84.5-98.6 N MCV) MEAN CELL HGB (test code = MCH) 31.7 pg 27.0-34.2 N MEAN CELL HGB CONCETRATION 33.3 G/DL 31.5-34.0 N (test code = MCHC) RED CELL DISTRIBUTION WIDTH 12.2 SD 11.5-14.5 N (test code = RDW) PLATELET COUNT (test code = 156 K/mm3 150-450 N PLT) MEAN PLATELET VOLUME (test code 14.00 fL 7.0-10.5 H = MPV) NEUTROPHIL % (test code = NT%) 66.2 % 40-76 N IMMATURE GRANULOCYTE % (test 0.3 % 0.0-5.0 N code = IG%) LYMPHOCYTE % (test code = LY%) 20.1 % 20.5-51.1 L MONOCYTE % (test code = MO%) 9.4 % 1.7-9.3 H EOSINOPHIL % (test code = EO%) 3.1 % 0.0-6.0 N BASOPHIL % (test code = BA%) 0.9 % 0.0-2.0 N NUCLEATED RBC % (test code = 0.0 /100WBC% 0.0-1.0 N NRBC%) NEUTROPHIL # (test code = NT#) 5.1 K/mm3 1.8-7.6 N IMMATURE GRANULOCYTE # (test 0.02 x10 3/uL 0.00-0.03 N code = IG#) LYMPHOCYTE # (test code = LY#) 1.6 K/mm3 0.6-3.2 N MONOCYTE # (test code = MO#) 0.7 K/mm3 0.3-1.1 N EOSINOPHIL # (test code = EO#) 0.2 K/mm3 0.0-0.4 N BASOPHIL # (test code = BA#) 0.1 K/mm3 0.0-0.1 N NUCLEATED RBC # (test code = 0.0 K/mm3 0.0-0.1 N NRBC#) MANUAL DIFF REQUIRED (test code NO DIFF/SCN CRITERIA = MDIFF) - XR CHEST 1 [id number] 13:21:00 [facility] : 1935 Sex: F Name: AUTUMN HERNANDEZ [facility] : 1935 Age/S: 87 / F [id number] Unit #: [id number] Loc: [place] [address] Phys: Marie Norwood MD Acct: [id number] Dis Date: Status: PRE [facility] [place]ONE #: [phone] Exam Date: 04/07/2022 1312 FAX #: Reason: P.A.T EXAMS: CPT: [id number] XR CHEST 1 V 25610 Fluoro Time: DAP (Gy m2): Air Kerma (mGy): CHEST 1 VIEW: INDICATION: P.A.T COMPARISON: There are no prior studies for comparison. Location: T 18 A single portable AP view of the chest demonstrates a borderline heart size with a calcified elongated aorta. The lung pedroza are grossly clear. No apparent pleural effusion nor pneumothorax. Changes of right shoulder arthroplasty are visible. IMPRESSION: 1. No acute cardiopulmonary changes noted. at 1321 Reported and signed by: Robert Eason M.D. CC: Marie Norwood MD PAGE 1 Signed Report Name: AUTUMN HERNANDEZ [facility] : 1935 Age /S: 87 / F [id number] Unit #: [id number] Loc: [place] [address] Phys: Marie Norwood MD Acct: [id number] Dis Date: Status: PRE SDC PHONE #: [phone] Exam Date: 04/07/2022 1312 FAX #: Reason: P.A.T EXAMS: CPT: [id number] XR CHEST 1 V 11426 Fluoro Time: DAP (Gy m2): Air Kerma (mGy): (Continued) Technologist: Rosalba Licona, RT(R) Trnscb Date/Time: 04/07/2022 (1321) [id number] Orig Print D/T: S: 04/07/2022 (1325) PAGE 2 Signed Report
[2022-07-19] MEDS ORDERED: NA CHLORIDE 0.9% 500 ML ONE (09:53)
--- NOTE | 2022-07-19 10:38 | RAD REPORT ---
EXAM DESCRIPTION: RAD - Chest Single View - 07/19/2022 10:16 am CLINICAL HISTORY: COUGH Chest pain. COMPARISON: Chest Pa And Lat (2 Views) dated 07/17/2022; Chest Single View dated 11/16/2019; Chest Si ngle View dated 06/15/2019 FINDINGS: Portable technique limits examination quality. The lungs are grossly clear. The heart is normal in size. No displaced fractures.Right total shoulder arthroplasty. IMPRESSION: No acute intrathoracic process suspected.
[2022-07-19 11:02] LABS: Absolute Lymphocytes (CBC) 1.2 K/uL (0.7-4.9); Hematocrit 35.5 % (36.0-45.0); Lymphocytes % 12.3 % (15.3-44.8); MCV 93.4 fL (80-100); MPV 12.1 fL (7.6-11.3)
[2022-07-19 11:03] LABS: Protime INR 1.03
[2022-07-19 11:09] LABS: SARS-COV-2 RT PCR NEGATIVE (NEGATIVE)
[2022-07-19 11:23] LABS: Albumin 3.1 g/dL (3.4-5.0); Bilirubin Direct 0.1 mg/dL (0-0.2); Bilirubin Total 0.5 mg/dL (0.2-1.0); Magnesium 2.3 mg/dL (1.6-2.4); Potassium 4.1 mmol/L (3.5-5.1); Protein, Total 6.7 g/dL (6.4-8.2); Troponin High Sensitivity 22.5 pg/mL (<58.9)
[2022-07-19] MEDS ORDERED: ASPIRIN 81 MG CHEWABLE TABLET ONE (11:32)
--- NOTE | 2022-07-19 11:44 | EDPHYS ---
Physician Documentation [facility] Name: Kayleigh Cooney Age: 87 yrs Sex: Female : 1935 Arrival Date: 07/19/2022 Time: 09:35 Bed 19 Private MD: Lynn Mcmullen ED Physician Narendra Guajardo HPI: 07/19 11:32 This 87 yrs old Female presents to ER via Ambulatory with complaints of High shadia Blood Pressure. 11:32 The patient has elevated blood pressure and discovered this at home. Onset: The shadia symptoms/episode began/occurred 3 day(s) ago. Modifying factors: The symptoms are aggravated by activity, The symptoms are alleviated by remaining still. Associated signs and symptoms: Pertinent positives: chest pain. Severity of symptoms: At its worst the blood pressure was moderate, in the emergency department the blood pressure is unchanged. The patient has experienced similar episodes in the past, multiple times. 11:34 The patient or guardian reports chest pain that is located primarily in the anterior shadia chest wall, bilaterally. Historical: - Allergies: 09:48 No Known Allergies; aa5 - Home Meds: 09:48 amlodipine 5 mg tab 1 tab once daily [Active]; carvedilol 6.25 mg oral tab 2 times per aa5 day [Active]; spironolactone 25 mg Oral tab once daily [Active]; - PMHx: 09:48 Diverticulitis; Hypertension; aa5 - Immunization history:: Adult Immunizations unknown. - Social history:: Smoking status: Patient denies any tobacco usage or history of. - Family history:: not pertinent. ROS: 11:34 Constitutional: Negative for fever, chills, and weight loss, Eyes: Negative for injury, shadia pain, redness, and discharge, ENT: Negative for injury, pain, and discharge, Neck: Negative for injury, pain, and swelling, Respiratory: Negative for shortness of breath, cough, wheezing, and pleuritic chest pain, Abdomen/GI: Negative for abdominal pain, nausea, vomiting, diarrhea, and constipation, Back: Negative for injury and pain, : Negative for injury, bleeding, discharge, and swelling, MS/Extremity: Negative for injury and deformity, Skin: Negative for injury, rash, and discoloration, Neuro: Negative for headache, weakness, numbness, tingling, and seizure, Psych: Negative for depression, anxiety, suicide ideation, homicidal ideation, and hallucinations, Allergy/Immunology: Negative for hives, rash, and allergies, Endocrine: Negative for neck swelling, polydipsia, polyuria, polyphagia, and marked weight changes, Hematologic/Lymphatic: Negative for swollen nodes, abnormal bleeding, and unusual bruising. 11:34 Cardiovascular: Positive for chest pain, of the chest. 11:34 Respiratory: Positive for cough, shortness of breath, at rest. Exam: 11:34 Constitutional: This is a well developed, well nourished patient who is awake, alert, shadia and in no acute distress. Head/Face: Normocephalic, atraumatic. Eyes: Pupils equal round and reactive to light, extra-ocular motions intact. Lids and lashes normal. Conjunctiva and sclera are non-icteric and not injected. Cornea within normal limits. Periorbital areas with no swelling, redness, or edema. ENT: Nares patent. No nasal discharge, no septal abnormalities noted. Tympanic membranes are normal and external auditory canals are clear. Oropharynx with no redness, swelling, or masses, exudates, or evidence of obstruction, uvula midline. Mucous membranes moist. Neck: Trachea midline, no thyromegaly or masses palpated, and no cervical lymphadenopathy. Supple, full range of motion without nuchal rigidity, or vertebral point tenderness. No Meningismus. Chest/axilla: Normal chest wall appearance and motion. Nontender with no deformity. No lesions are appreciated. Abdomen/GI: Soft, non-tender, with normal bowel sounds. No distension or tympany. No guarding or rebound. No evidence of tenderness throughout. Back: No spinal tenderness. No costovertebral tenderness. Full range of motion. Female : Normal external genitalia. Skin: Warm, dry with normal turgor. Normal color with no rashes, no lesions, and no evidence of cellulitis. MS/ Extremity: Pulses equal, no cyanosis. Neurovascular intact. Full, normal range of motion. Neuro: Awake and alert, GCS 15, oriented to person, place, time, and situation. Cranial nerves II-XII grossly intact. Motor strength 5/5 in all extremities. Sensory grossly intact. Cerebellar exam normal. Normal gait. Psych: Awake, alert, with orientation to person, place and time. Behavior, mood, and affect are within normal limits. 11:34 Cardiovascular: Rate: bradycardic, actual rate is 52 bpm, Rhythm: regular, Pulses: Pulses are 4+ in bilateral radial, brachial, femoral, popliteal, posterior tibial and and dorsalis pedis arteries.. Heart sounds: normal, normal S1and S2, no S3 or S4, no murmur, no rub, no gallop, Edema: is not appreciated, JVD: is not appreciated. 11:34 ECG was reviewed by the Attending Physician. Vital Signs: 09:36 BP 177 / 55; Pulse 55; Resp 14 S; Temp 97.6(O); Pulse Ox 99% on R/A; Weight 75.75 kg aa5 (R); Height 5 ft. 0 in. (152.40 cm) (R); 11:12 BP 179 / 50; Pulse 52; Resp 16 S; Pulse Ox 99% on R/A; Pain 0/10; aa5 11:53 BP 181 / 63; Pulse 56; Pulse Ox 99% ; ko1 12:38 BP 177 / 76; Pulse 50; Pulse Ox 99% ; ko1 13:30 BP 176 / 91; Pulse 54; Pulse Ox 99% ; ko1 14:30 BP 171 / 64; Pulse 62; Pulse Ox 99% ; ko1 15:00 BP 164 / 57; Pulse 63; Pulse Ox 95% ; ko1 09:36 Body Mass Index 32.61 (75.75 kg, 152.40 cm) aa5 MDM: 09:46 Patient medically screened. shadia 11:36 Antibiotic administration: Not indicated. Differential diagnosis: bronchitis, flu, URI, shadia abnormal EKG, acute myocardial infarction, anxiety, chest wall pain, congestive heart failure cholecystitis, hypertensive crisis, Malignant HTN, esophagitis, gastritis, pancreatitis. HEART Score: History: Slightly Suspicious (0), ECG: Non specific repolarization disturbance / LBTB / PM (1), Age: > or = 65 years (2), Risk Factors: 1 or 2 risk factors (1), [Hypercholesterolemia] [Hypertension] [+ Family HX] Troponin: < or = 1 x Normal Limit (0). The patient was given aspirin in the Emergency Department. The patient's deep vein thrombosis risk score was calculated as follows: Total Score: 0. This patient was found to be at low risk for a deep vein thrombosis by using the Well's assessment criteria. The patient's pulmonary embolism risk score was calculated as follows: Total Score: 0-2 points. This patient was found to be at low risk for a pulmonary embolism by using the Well's assessment criteria. Data reviewed: vital signs, nurses notes, lab test result(s), EKG, radiologic studies, doppler. Data interpreted: color television console monitor: rate is 52 beats/min, rhythm is regular, Pulse oximetry: on room air is 99 %. Test interpretation: by ED physician or midlevel provider: ECG, plain radiologic studies. Counseling: I had a detailed discussion with the patient and/or guardian regarding: the historical points, exam findings, and any diagnostic results supporting the discharge/admit diagnosis, lab results, radiology results, the need for further work-up and treatment in the hospital. 12:18 Physician consultation: Bryan Gonzalez MD and will see patient in ED, wants patient dc shadia on prednisone, double norvasc and follow up. 07/19 09:47 Order name: Basic Metabolic Panel; Complete Time: 11:24 shadia 07/19 09:47 Order name: CBC with Diff; Complete Time: 11:24 07/19 09:47 Order name: LFT's; Complete Time: 11:24 shadia 07/19 09:47 Order name: Magnesium; Complete Time: 11:24 07/19 09:47 Order name: NT PRO-BNP; Complete Time: 11:24 07/19 09:47 Order name: PT-INR; Complete Time: 11:24 07/19 09:47 Order name: Troponin HS; Complete Time: 11:24 07/19 09:47 Order name: XRAY Chest (1 view); Complete Time: 11:24 07/19 09:47 Order name: Lipase; Complete Time: 11:24 07/19 10:17 Order name: COVID-19/FLU A+B; Complete Time: 11:24 07/19 13:03 Order name: Urine Dipstick-Ancillary EDNE 07/19 14:01 Order name: Troponin HS kj1 07/19 09:47 Order name: EKG; Complete Time: 09:47 [facility] 07/19 09:47 Order name: Cardiac monitoring; Complete Time: 09:51 [facility] 07/19 09:47 Order name: EKG - Nurse/Tech; Complete Time: 09:51 [facility] 07/19 09:47 Order name: IV Saline Lock; Complete Time: 11:12 [facility] 07/19 09:47 Order name: Labs collected and sent; Complete Time: 10:50 [facility] 07/19 09:47 Order name: O2 Per Protocol; Complete Time: 09:51 [facility] 07/19 09:47 Order name: O2 Sat Monitoring; Complete Time: 09:51 [facility] 07/19 09:47 Order name: Urine Dipstick-Ancillary (obtain specimen); Complete Time: 12:58 [facility] EC:34 Rate is 53 beats/min. Rhythm is regular. QRS [place] is Normal. [place] interval is normal. QRS shadia interval is normal. QT interval is normal. No Q waves. T waves are Normal. No ST changes noted. Clinical impression: NSR w/ Non-specific ST/T Changes and No evidence of ischemia. Reviewed by me. Administered Medications: 11:12 Drug: NS 0.9% 500 ml Route: IV; Rate: bolus; Site: right hand; aa5 11:30 Drug: Aspirin Chewable Tablet 324 mg Route: PO; ko1 11:47 Drug: Pepcid (famotidine) 20 mg Route: IVP; Site: right hand; ko1 11:47 Drug: Lovenox (enoxaparin) 70 mg Route: Sub-Q; Site: abdomen; ko1 12:27 Drug: Norvasc (amlodipine) 5 mg Route: PO; ko1 12:27 Drug: Xopenex (levalbuterol) 2.5 mg Route: Inhalation; ko1 12:27 Drug: AtroVENT (ipratropium) Aerosol 0.5 mg Route: Inhalation; ko1 12:28 Drug: SOLU-Medrol (methylPrednisoLONE) 125 mg Route: IVP; Site: right hand; ko1 12:30 Drug: predniSONE 20 mg Route: PO; ko1 Disposition Summary: 07/19/22 12:18 Discharge Ordered Location: Home(07/19/22 12:18) shadia Problem: new(07/19/22 12:18) shadia Symptoms: have improved(07/19/22 12:18) shadia Condition: Stable(07/19/22 12:18) shadia Diagnosis - Cough(07/19/22 12:18) shadia - Essential (primary) hypertension(07/19/22 12:18) shadia - Chest pain, unspecified(07/19/22 12:18) shadia - Unspecified kidney failure - chronic kidney failure(07/19/22 12:24) shadia Followup: shadia - With: Lynn Mcmullen MD - When: 2 - 3 days - Reason: Recheck today's complaints, Continuance of care, Re-evaluation by your physician Followup: shadia - With: Noé Escalante MD - When: 2 - 3 days - Reason: Recheck today's complaints, Re-evaluation by your physician Discharge Instructions: - Discharge Summary Sheet shadia - Nonspecific Chest Pain, Adult shadia - Hypertension, Adult shadia - Nonspecific Chest Pain, Adult, Jura-xu-Bpat shadia - Hypertension, Adult, Fypa-im-Cvry shadia - How to Take Your Blood Pressure, Mdhh-as-Ufsp shadia - Aspirin and Your Heart shadia - Managing Your Hypertension shadia - Chronic Kidney Disease, Adult, Hkoe-vu-Mltp [facility] Forms: - Medication Reconciliation Form shadia - Thank You Letter shadia - Antibiotic Education shadia - Prescription Opioid Use [facility] Prescriptions: - Norvasc 5 mg Oral Tablet - take 1 tablet by ORAL route every 12 hours; 60 tablet; Refills: 0, Product shadia Selection Permitted - Pepcid 20 mg Oral Tablet - take 1 tablet by ORAL route every 12 hours for 10 days; 20 tablet; Refills: 0, [facility] Product Selection Permitted - Prednisone 20 mg Oral Tablet - take 1 tablet by ORAL route once daily for 7 days; 7 tablet; Refills: 0, [facility] Product Selection Permitted - Coreg 6.25 mg Oral tablet - take 1 tablet by ORAL route 2 times per day with food; 60 tablet; Refills: 0, [facility] Product Selection Permitted - albuterol sulfate 90 mcg/actuation Inhalation HFA aerosol inhaler - inhale 2 puff by INHALATION route every 6-8 hours; 1 Pump; Refills: 0, Product [facility] Selection Permitted Signatures: Dispatcher [employer] Narendra Morales MD MD cha Calderon, Audri RN RN aa5 Rama Espinoza RN RN ko1 Corrections: (The following items were deleted from the chart) 12:14 11:44 Observation formerly [facility] 12:14 11:44 Bryan Gonzalez formerly [facility] 12:14 11:44 Telemetry/MedSurg (observation) shadia shadia 12:14 11:44 Fair shadia shadia 12:14 11:44 new shadia shadia 12:14 11:44 have improved shadia shadia 12:14 11:44 Standard shadia shadia 12:14 11:44 shadia shadia 12:14 11:44 Chest pain, unspecified shadia shadia 12:14 11:44 Essential (primary) hypertension shadia shadia 12:14 11:44 Cough shadia shadia 12:14 11:44 Unspecified kidney failure - chronic shadia shadia
--- NOTE | 2022-07-19 11:44 | ER ---
Nurse's Notes [facility] Name: Kayleigh Cooney Age: 87 yrs Sex: Female : 1935 Arrival Date: 07/19/2022 Time: 09:35 Bed 19 Private MD: Lynn Mcmullen Diagnosis: Cough;Essential (primary) hypertension;Chest pain, unspecified;Unspecified kidney failure-chronic kidney failure Presentation: 07/19 09:36 Chief complaint: Patient states: chest congestion x 2 weeks ago. Pt also reports aa5 pressure to eyes and head and states "my blood pressure was 195 (systolic) today". 09:36 Coronavirus screen: congestion. Ebola Screen: Patient denies travel to an [facility] Ebola-affected area in the 21 days before illness onset. Initial Sepsis Screen: Does the patient meet any 2 criteria? No. Patient's initial sepsis screen is negative. Does the patient have a suspected source of infection? No. Patient's initial sepsis screen is negative. Risk Assessment: Do you want to hurt yourself or someone else? Patient reports no desire to harm self or others. Onset of symptoms was June 2022. 09:36 Acuity: WON 3 aa5 09:36 Method Of Arrival: Ambulatory aa5 Triage Assessment: 15:29 General: Appears in no apparent distress. uncomfortable, Behavior is calm, cooperative, ko1 appropriate for age. Historical: - Allergies: 09:48 No Known Allergies; aa5 - Home Meds: 09:48 amlodipine 5 mg tab 1 tab once daily [Active]; carvedilol 6.25 mg oral tab 2 times per aa5 day [Active]; spironolactone 25 mg Oral tab once daily [Active]; - PMHx: 09:48 Diverticulitis; Hypertension; aa5 - Immunization history:: Adult Immunizations unknown. - Social history:: Smoking status: Patient denies any tobacco usage or history of. - Family history:: not pertinent. Screenin:00 [facility] ED Fall Risk Assessment (Adult) History of falling in the last 3 months, ko1 including since admission No falls in past 3 months (0 pts) Confusion or Disorientation No (0 pts) Intoxicated or Sedated No (0 pts) Impaired Gait No (0 pts) Mobility Assist Device Used No (0 pt) Altered Elimination No (0 pt) Score/Fall Risk Level 0 - 2 = Low Risk. Abuse screen: Denies threats or abuse. Denies injuries from another. Nutritional screening: No deficits noted. Tuberculosis screening: No symptoms or risk factors identified. Assessment: 10:00 Pain: Complains of pain in forehead. Neuro: No deficits noted. Cardiovascular: Reports ko1 high blood pressure. Respiratory: No deficits noted. GI: No deficits noted. : No deficits noted. EENT: Reports nasal congestion pain headache. Derm: No deficits noted. Musculoskeletal: No deficits noted. 11:13 Reassessment: Patient is alert, oriented x 3, equal unlabored respirations, skin aa5 warm/dry/pink. Patient denies pain at this time. Vital Signs: 09:36 BP 177 / 55; Pulse 55; Resp 14 S; Temp 97.6(O); Pulse Ox 99% on R/A; Weight 75.75 kg aa5 (R); Height 5 ft. 0 in. (152.40 cm) (R); 11:12 BP 179 / 50; Pulse 52; Resp 16 S; Pulse Ox 99% on R/A; Pain 0/10; aa5 11:53 BP 181 / 63; Pulse 56; Pulse Ox 99% ; ko1 12:38 BP 177 / 76; Pulse 50; Pulse Ox 99% ; ko1 13:30 BP 176 / 91; Pulse 54; Pulse Ox 99% ; ko1 14:30 BP 171 / 64; Pulse 62; Pulse Ox 99% ; ko1 15:00 BP 164 / 57; Pulse 63; Pulse Ox 95% ; ko1 09:36 Body Mass Index 32.61 (75.75 kg, 152.40 cm) aa5 ED Course: 09:35 Patient arrived in ED. mr 09:35 Lynn Mcmullen MD is Private Physician. mr 09:36 Arm band placed on Patient placed in an exam room, on a stretcher. aa5 09:38 Rama Espinoza RN is Primary Nurse. ko1 09:46 Narendra Guajardo MD is Attending Physician. [facility] 09:48 Triage completed. aa5 10:00 Patient has correct armband on for positive identification. Placed in gown. Bed in low ko1 position. Call light in reach. Side rails up X 1. Client placed on continuous cardiac and pulse oximetry monitoring. NIBP monitoring applied. hair mixer on. 10:18 XRAY Chest (1 view) In Process Unspecified. EDMS 10:23 COVID-19/FLU A+B Sent. ko1 10:50 Lipase Sent. ko1 10:50 Basic Metabolic Panel Sent. ko1 10:50 CBC with Diff Sent. ko1 10:50 LFT's Sent. ko1 10:50 Magnesium Sent. ko1 10:50 NT PRO-BNP Sent. ko1 10:50 PT-INR Sent. ko1 10:50 Troponin HS Sent. ko1 10:53 Warm blanket given. Pulse ox on. mm9 10:53 Missed attempt(s): 22 gauge in right antecubital area. mm9 11:10 Inserted saline lock: 22 gauge in right hand, using aseptic technique. aa5 11:39 Bryan Gonzalez MD is Hospitalizing Provider. shadia 12:14 Lynn Mcmullen MD is Referral Physician. shadia 12:14 Noé Escalante MD is Referral Physician. shadia 14:25 Troponin High Sensitivity: 2pm Sent. ko1 15:28 No provider procedures requiring assistance completed. IV discontinued, intact, ko1 bleeding controlled, No redness/swelling at site. Pressure dressing applied. Administered Medications: 11:12 Drug: NS 0.9% 500 ml Route: IV; Rate: bolus; Site: right hand; aa5 11:30 Drug: Aspirin Chewable Tablet 324 mg Route: PO; ko1 11:47 Drug: Pepcid (famotidine) 20 mg Route: IVP; Site: right hand; ko1 11:47 Drug: Lovenox (enoxaparin) 70 mg Route: Sub-Q; Site: abdomen; ko1 12:27 Drug: Norvasc (amlodipine) 5 mg Route: PO; ko1 12:27 Drug: Xopenex (levalbuterol) 2.5 mg Route: Inhalation; ko1 12:27 Drug: AtroVENT (ipratropium) Aerosol 0.5 mg Route: Inhalation; ko1 12:28 Drug: SOLU-Medrol (methylPrednisoLONE) 125 mg Route: IVP; Site: right hand; ko1 12:30 Drug: predniSONE 20 mg Route: PO; ko1 Medication: 12:38 VIS not applicable for this client. ko1 Outcome: 11:44 Decision to Hospitalize by Provider. shadia 12:18 Discharge ordered by . shadia 15:28 Discharged to home ambulatory, with family. ko1 15:28 Discharged to home ambulatory, with family. 15:28 Condition: good 15:28 Discharge instructions given to patient, family, Instructed on discharge instructions, follow up and referral plans. medication usage, Demonstrated understanding of instructions, follow-up care, medications, Prescriptions given X x5 15:30 Patient left the ED. ko1 Signatures: Dispatcher [employer] EDAZ Narendra Guajardo MD MD cha Rivera, Mary mr Calderon, Flores, RN RN flora5 Rama Espinoza, RN RN Cheryl Palafox mm9 Corrections: (The following items were deleted from the chart) 15: 12:38 No provider procedures requiring assistance completed. ko1 ko1 15:28 12:38 IV discontinued, intact, bleeding controlled, No redness/swelling at site. ko1 Pressure dressing applied, ko1
[2022-07-19] MEDS ORDERED: ENOXAPARIN 80 MG/0.8 ML SQ ONE (11:47)
[2022-07-19] MEDS ORDERED: FAMOTIDINE 20 MG/2 ML VIAL IV ONE (11:48)
[2022-07-19] MEDS ORDERED: ALBUTEROL 2.5 MG/3 ML NEB SOL ONE (12:23)
[2022-07-19] MEDS ORDERED: AMLODIPINE 5 MG TAB ONE (12:23)
[2022-07-19] MEDS ORDERED: IPRATROPIUM BROM 0.5MG/2.5ML ONE (12:23)
[2022-07-19] MEDS ORDERED: METHYLPREDNISOLONE 125 MG INJ ONE (12:23)
[2022-07-19] MEDS ORDERED: LEVALBUTEROL 1.25 MG/3 ML NEB ONE (12:33)
[2022-07-19] MEDS ORDERED: predniSONE 20 MG TAB ONE (12:33)
[2022-07-19 13:03] LABS: Urine Blood Negative (Negative); Urine Glucose Negative (Negative); Urine Protein 3+ (Negative)
[2022-07-19 16:02] VITALS: BP 180/130; TEMP 98; O2SAT 99
--- NOTE | 2022-07-20 16:07 | EKG ---
Test Date: 2022-07-19 Test Time: 09:53:36 Culinary Art Teacher: JAMIN MEASUREMENT RESULTS: Intervals: Rate: 53 MO: 218 QRSD: 140 QT: 464 QTc: 435 Bath: P: 49 MO: 218 QRS: -48 T: 13 INTERPRETIVE STATEMENTS: Sinus bradycardia with 1st degree AV block Right bundle branch block Left anterior fascicular block Bifascicular block Moderate voltage criteria for LVH, may be normal variant Abnormal ECG Compared to ECG 10/24/2020 09:51:24 First degree AV block now present Left anterior fascicular block now present Bifascicular block now present Left-axis deviation no longer present Myocardial infarct finding no longer present Electronically Signed On 07-20-22 16:05:26 CAFE HELPER by Laurent Mark
== END 2022-07-19 15:30 | disposition home or self-care (01) ==
LOC: ER 09:31
DX: R05.9 Cough, unspecified (principal); R07.89 Other chest pain; I12.9 Hypertensive chronic kidney disease with stage 1 through stage 4 chronic kidney disease, or unspecified chronic kidney disease; N18.9 Chronic kidney disease, unspecified; Z20.822 Contact with and (suspected) exposure to COVID-19
CPT/HCPCS: 93005; 85025; 80048; 36415; 83735; 85610; 80076; 81003; 84484 ×2; 83690; 83880; 0240U; 71045; J7614; J7512; J7644; J1650; J7040; J2930; 96372; 96374; 96375; 99285; J7613

== ENCOUNTER 2023-03-04 09:13 | Day surgery (SDC) | payer OTHER ==
[2023-03-04] MEDS ORDERED: CEFAZOLIN SODIUM 2 GM/VIAL ONE (09:42)
[2023-03-04] MEDS ORDERED: Ringers Lactate 1,000 ML IV ONE (09:42)
[2023-03-04] MEDS ORDERED: BUPIVACAINE 0.5% PF 10 ML VIAL ONE (11:23)
[2023-03-04] MEDS ORDERED: CEFAZOLIN SODIUM 1 GM/VIAL ONE (11:23)
[2023-03-04] MEDS ORDERED: LIDOCAINE HCL/EPINEPHRINE 20 ML MDV ONE (11:24)
[2023-03-04] MEDS ORDERED: propofoL 200 MG/20 ML VIAL IV ONE (12:05)
[2023-03-04] MEDS ORDERED: FENTANYL CITR 100 MCG/2 ML ONE (12:05)
[2023-03-04] MEDS ORDERED: LIDOCAINE 2% MPF 5 ML VIAL ONE (12:06)
[2023-03-04] MEDS ORDERED: dexAMETHasone 10 MG/ML VIAL ONE (12:20)
[2023-03-04] MEDS ORDERED: KETAMINE HCL IN 0.9 % NACL 50 MG/5 ML SYRINGE IV ONE (12:20)
[2023-03-04] MEDS ORDERED: ONDANSETRON 4 MG/2 ML VIAL ONE (12:20)
[2023-03-04] MEDS ORDERED: GLYCOPYRROLATE 0.2 MG/ML SYR ONE (12:29)
[2023-03-04] MEDS ORDERED: EPHEDRINE SULF 50 MG/ML VIAL ONE (12:29)
[2023-03-04] MEDS ORDERED: LABETALOL 20 MG/4ML SYRINGE IV ONE (13:35)
[2023-03-04 13:53] VITALS: TEMP 97
[2023-03-04] MEDS ORDERED: SUCCINYLCHOLINE 20 MG/ML (10 ML) IV ONE (14:03)
[2023-03-04 14:51] VITALS: BP 164/58; O2SAT 99
--- NOTE | 2023-03-04 16:12 | RAD REPORT ---
EXAM DESCRIPTION: RAD - Fluoroscopy <1 Hour - 03/04/2023 1:39 pm CLINICAL HISTORY: SACRAL MOD COMPARISON: None available. FINDINGS: Forty-one Images were sent to PACS, documenting hardware positions during an image guided sacral mild implant procedure. No radiologist was available for the procedure, nor will any image in terpretation he provided. Please refer to the procedural report for additional details. Fluoroscopy time: 0.8 minutes. IMPRESSION: Documentation of fluoroscopy utilization as above.
== END 2023-03-04 15:48 | disposition home or self-care (01) ==
LOC: OR 09:13
PROVIDERS: ATTEND Obstetrics & Gynecology
PROC: 0JH73BZ Insertion of Single Array Stimulator Generator into Back Subcutaneous Tissue and Fascia, Percutaneous Approach (ICD-10-PCS; principal; 2023-03-04 10:30)
DX: N39.41 Urge incontinence (principal); R15.9 Full incontinence of feces
CPT/HCPCS: 76000; J0690; J1100; J2001; J2405; J2704; J3010; J7120

== ENCOUNTER 2024-02-29 16:26 | Emergency (ER) | payer OTHER ==
--- NOTE | 2024-02-29 18:55 | RAD REPORT ---
EXAM DESCRIPTION: RAD - Knee Left 3 View - 02/29/2024 6:43 pm CLINICAL HISTORY: PAIN COMPARISON: Knee Left 3 View dated 02/22/2024 FINDINGS/IMPRESSION: No acute fracture. No malalignment. Mild patellofemoral compartment spurring.
--- NOTE | 2024-02-29 18:56 | RAD REPORT ---
EXAM DESCRIPTION: RAD - Chest Pa And Lat (2 Views) - 02/29/2024 6:43 pm CLINICAL HISTORY: DYSPNEA COMPARISON: Chest Pa And Lat (2 Views) dated 02/22/2024; Chest Single View dated 07/19/2022; Chest Pa And Lat (2 Views) dated 07/17/2022 FINDINGS: Lines: None. Lungs: No evidence of edema or pneumonia. Pleural: No significant pleural effusions or pneumothorax. Cardiac: The heart size is within normal limits. Mediastinum: Within normal limits. Bones: No acute fractures. Right shoulder arthroplasty. Other: None IMPRESSION: No acute cardiopulmonary disease.
--- NOTE | 2024-02-29 19:21 | RAD REPORT ---
EXAM DESCRIPTION: US - Extrem Venous W Compress Lei - 02/29/2024 7:11 pm CLINICAL HISTORY: PAIN COMPARISON: No comparisons TECHNIQUE: Real-time sonographic evaluation of the lower extremity deep venous systems was performed using color Doppler, grayscale, and compression. FINDINGS: Bilateral lower extremities. Normal compressibility, flow augmentation, phasic flow and spontaneous flow is identified in both the left and right lower extremity deep venous systems. No intraluminal filling defects seen. IMPRESSION: No DVT in either lower extremity.
--- NOTE | 2024-02-29 19:43 | ER ---
Nurse's Notes [facility] Name: Kayleigh Cooney Age: 88 yrs Sex: Female : 1935 Arrival Date: 02/29/2024 Time: 16:26 Bed 10 Private MD: Diagnosis: Pain in leg, unspecified;Pain in left knee-tricompartmental oa;Localized edema Presentation: 02/28 17:08 Chief complaint: Patient states: Left knee pain for 2 week, getting worse. Saw PCP last nj1 week, advised to take tylenol. Took tylenol earlier today with no relief. Unknown injury. Coronavirus screen: Vaccine status: Patient reports receiving the 2nd dose of the covid vaccine. Ebola Screen: Patient denies travel to an Ebola-affected area in the 21 days before illness onset. Initial Sepsis Screen: Does the patient meet any 2 criteria? No. Patient's initial sepsis screen is negative. Does the patient have a suspected source of infection? No. Patient's initial sepsis screen is negative. Risk Assessment: Do you want to hurt yourself or someone else? Patient reports no desire to harm self or others. Onset of symptoms was January 2024. 17:08 Method Of Arrival: Wheelchair nj1 17:08 Acuity: WON 3 nj1 Triage Assessment: 17:11 General: Appears in no apparent distress. comfortable, Behavior is calm, cooperative, nj1 appropriate for age. Pain: Complains of pain in left knee Pain currently is 0 out of 10 on a pain scale. at worst was 9 out of 10 on a pain scale. Alleviated by rest, Aggravated by weight bearing. Neuro: Level of Consciousness is awake, alert, obeys commands, Oriented to person, place, time, situation. Cardiovascular: Patient's skin is warm and dry. Respiratory: Airway is patent Respiratory effort is even, unlabored. Historical: - Allergies: 17:11 No Known Allergies; nj1 - PMHx: 17:11 Hypertension; Diverticulitis; nj1 - PSHx: 17:11 wrist FX; shoulder replacement; diverticulosis SX; Bladder lift; nj1 - Immunization history:: Client reports receiving the 2nd dose of the Covid vaccine. - Infectious Disease History:: Denies. - Social history:: Smoking status: Patient denies any tobacco usage or history of. Screenin:14 [facility] ED Fall Risk Assessment (Adult) History of falling in the last 3 months, cm10 including since admission No falls in past 3 months (0 pts) Confusion or Disorientation No (0 pts) Intoxicated or Sedated No (0 pts) Impaired Gait No (0 pts) Mobility Assist Device Used No (0 pt) Altered Elimination No (0 pt) Score/Fall Risk Level 0 - 2 = Low Risk Oriented to surroundings, Maintained a safe environment, Hourly rounding (assess needs \T\ fall precautionary measures) done. Abuse screen: Denies threats or abuse. Denies injuries from another. Nutritional screening: No deficits noted. Tuberculosis screening: No symptoms or risk factors identified. Vital Signs: 17:08 BP 180 / 73; Pulse 66; Resp 18; Temp 98.6(O); Pulse Ox 97% ; Weight 73.03 kg; Height 5 nj1 ft. 0 in. ; 17:08 Body Mass Index 31.44 (73.03 kg, 152.4 cm) nj1 ED Course: 16:34 Patient arrived in ED. mg5 16:34 Narendra Guajardo MD is Attending Physician. [facility] 17:10 Triage completed. nj1 17:11 Arm band placed on right wrist. EKG completed in triage. Results shown to MD. EKG nj1 completed in triage. Results shown to MD. 18:44 Knee Left 3 View XRAY In Process Unspecified. EDMS 18:45 Chest Pa And Lat (2 Views) XRAY In Process Unspecified. EDMS 19:13 US Extremity Venous W Compression Lei In Process Unspecified. EDMS 19:43 Evelio Davalos MD is Referral Physician. shadia 19:55 Radha Epstein, GABI is Primary Nurse. cm10 20:14 Patient has correct armband on for positive identification. Provided Education on: cm10 Follow-up instructions. 20:14 No provider procedures requiring assistance completed. Patient did not have IV access cm10 during this emergency room visit. Knee immobilizer applied on left knee. Administered Medications: 20:09 Drug: Ibuprofen PO 600 mg PO once Route: PO; cm10 20:15 Follow up: Response: Medication administered at discharge. cm10 20:09 Drug: Hydrocodone-Acetaminophen PO (7.5 mg-325 mg) 1 tabs PO once Route: PO; cm10 20:15 Follow up: Response: Medication administered at discharge. cm10 Medication: 20:14 VIS not applicable for this client. cm10 Outcome: 19:43 Discharge ordered by . shadia 20:15 Discharged to home via wheelchair, with family, cm10 20:15 Condition: good 20:15 Discharge instructions given to patient, Instructed on discharge instructions, follow up and referral plans. medication usage, Demonstrated understanding of instructions, follow-up care, medications, Prescriptions given X 2, 20:15 Patient left the ED. cm10 Signatures: Dispatcher [employer] EDMT Narendra Guajardo MD MD cha Jaco, Norma, RN RN nj1 Radha Epstein RN RN cm10 Jami Simons mg5 Corrections: (The following items were deleted from the chart) 17:11 17:08 Pulse 66bpm; Resp 18bpm; Pulse Ox 97%; Temp 98.6F Oral; 73.03 kg; Height 5 ft. 0 nj1 in.; BMI: 31.4; nj1 20:15 20:14 Knee immobilizer applied on cm10 cm10
--- NOTE | 2024-02-29 19:43 | EDPHYS ---
Physician Documentation [facility] Name: Kayleigh Cooney Age: 88 yrs Sex: Female : 1935 Arrival Date: 02/29/2024 Time: 16:26 Bed 10 Private MD: DONA Physician Narendra Guajardo HPI: 02/28 18:35 This 88 yrs old Female presents to ER via Wheelchair with complaints of Knee shadia Pain. 18:35 The patient presents with decreased range of motion, pain, that is acute. The shadia complaints affect the left knee. Context: The problem was sustained at an unknown site. Onset: The symptoms/episode began/occurred 2 week(s) ago. Historical: - Allergies: 17:11 No Known Allergies; nj1 - PMHx: 17:11 Hypertension; Diverticulitis; nj1 - PSHx: 17:11 wrist FX; shoulder replacement; diverticulosis SX; Bladder lift; nj1 - Immunization history:: Client reports receiving the 2nd dose of the Covid vaccine. - Infectious Disease History:: Denies. - Social history:: Smoking status: Patient denies any tobacco usage or history of. ROS: 18:39 Constitutional: Negative for fever, chills, and weight loss, Eyes: Negative for injury, shadia pain, redness, and discharge, ENT: Negative for injury, pain, and discharge, Neck: Negative for injury, pain, and swelling, Cardiovascular: Negative for chest pain, palpitations, and edema, Respiratory: Negative for shortness of breath, cough, wheezing, and pleuritic chest pain, Abdomen/GI: Negative for abdominal pain, nausea, vomiting, diarrhea, and constipation, Back: Negative for injury and pain, : Negative for injury, bleeding, discharge, and swelling, Skin: Negative for injury, rash, and discoloration, Neuro: Negative for headache, weakness, numbness, tingling, and seizure, Psych: Negative for depression, anxiety, suicide ideation, homicidal ideation, and hallucinations, Allergy/Immunology: Negative for hives, rash, and allergies, Endocrine: Negative for neck swelling, polydipsia, polyuria, polyphagia, and marked weight changes, Hematologic/Lymphatic: Negative for swollen nodes, abnormal bleeding, and unusual bruising, 18:39 MS/extremity: Positive for decreased range of motion, pain, swelling, tenderness, of the lateral aspect of left knee, lateral aspect of left calf, medial aspect of left knee, medial aspect of left calf, left knee and left sandhu, Exam: 18:39 Constitutional: This is a well developed, well nourished patient who is awake, alert, shadia and in no acute distress. Head/Face: Normocephalic, atraumatic. Eyes: Pupils equal round and reactive to light, extra-ocular motions intact. Lids and lashes normal. Conjunctiva and sclera are non-icteric and not injected. Cornea within normal limits. Periorbital areas with no swelling, redness, or edema. ENT: Nares patent. No nasal discharge, no septal abnormalities noted. Tympanic membranes are normal and external auditory canals are clear. Oropharynx with no redness, swelling, or masses, exudates, or evidence of obstruction, uvula midline. Mucous membranes moist. Neck: Trachea midline, no thyromegaly or masses palpated, and no cervical lymphadenopathy. Supple, full range of motion without nuchal rigidity, or vertebral point tenderness. No Meningismus. Chest/axilla: Normal chest wall appearance and motion. Nontender with no deformity. No lesions are appreciated. Cardiovascular: Regular rate and rhythm with a normal S1 and S2. No gallops, murmurs, or rubs. Normal PMI, no JVD. No pulse deficits. Respiratory: Lungs have equal breath sounds bilaterally, clear to auscultation and percussion. No rales, rhonchi or wheezes noted. No increased work of breathing, no retractions or nasal flaring. Abdomen/GI: Soft, non-tender, with normal bowel sounds. No distension or tympany. No guarding or rebound. No evidence of tenderness throughout. Back: No spinal tenderness. No costovertebral tenderness. Full range of motion. Female : Normal external genitalia. Skin: Warm, dry with normal turgor. Normal color with no rashes, no lesions, and no evidence of cellulitis. Neuro: Awake and alert, GCS 15, oriented to person, place, time, and situation. Cranial nerves II-XII grossly intact. Motor strength 5/5 in all extremities. Sensory grossly intact. Cerebellar exam normal. Normal gait. Psych: Awake, alert, with orientation to person, place and time. Behavior, mood, and affect are within normal limits. 18:39 Cardiovascular: 18:39 Cardiovascular: Heart sounds: normal, Edema: is not appreciated, JVD: is not appreciated, 18:39 Musculoskeletal/extremity: Extremities: grossly normal except: decreased ROM, pain, swelling, tenderness, ROM: full active range of motion, full passive range of motion, limited active range of motion due to pain, limited passive range of motion due to pain, Circulation is intact in all extremities. Sensation intact. Compartment Syndrome exam of affected extremity: is normal. Weight bearing: can bear weight with assistance only, uses walker, DVT Exam: pain, swelling, tenderness, of the left leg, of the lateral aspect of left knee, lateral aspect of left calf, posterior aspect of left knee, left calf, medial aspect of left knee, medial aspect of left calf, left knee and left sandhu, Vital Signs: 17:08 BP 180 / 73; Pulse 66; Resp 18; Temp 98.6(O); Pulse Ox 97% ; Weight 73.03 kg; Height 5 nj1 ft. 0 in. ; 17:08 Body Mass Index 31.44 (73.03 kg, 152.4 cm) nj1 MDM: 16:34 Patient medically screened. [facility] 18:41 Differential diagnosis: closed fracture, contusion, tendonitis. Data reviewed: vital shadia signs, nurses notes, lab test result(s), radiologic studies, plain films, ultrasound. Consideration of Admission/Observation Escalation of care including admission/observation considered. I considered the following discharge prescriptions or medication management in the emergency department Medications were administered in the Emergency Department. See MAR. Independent interpretation of the following test(s) in the Emergency Department EKG: See my EKG interpretation above Radiology Department Ultrasound: My interpretation is bilateral venous doppler. Point of Care Ultrasound performed by Emergency Department Team, please see interpretation in the Ultrasound procedure note. 02/28 18:11 Order name: Knee Left 3 View XRAY; Complete Time: 19:42 [facility] 02/28 18:20 Order name: Chest Pa And Lat (2 Views) XRAY; Complete Time: 19:42 [facility] 02/28 18:20 Order name: US Extremity Venous W Compression Lei; Complete Time: 19:42 [facility] 02/28 18:54 Order name: Knee Immobilizer; Complete Time: 19:55 shadia Administered Medications: 20:09 Drug: Ibuprofen PO 600 mg PO once Route: PO; cm10 20:15 Follow up: Response: Medication administered at discharge. cm10 20:09 Drug: Hydrocodone-Acetaminophen PO (7.5 mg-325 mg) 1 tabs PO once Route: PO; cm10 20:15 Follow up: Response: Medication administered at discharge. cm10 Disposition Summary: 02/29/24 19:43 Discharge Ordered Notes: Location: Home shadia Problem: new shadia Symptoms: have improved shadia Condition: Stable shadia Diagnosis - Pain in leg, unspecified shadia - Pain in left knee - tricompartmental oa shadia - Localized edema shadia Followup: shadia - With: Private Physician - When: 2 - 3 days - Reason: Recheck today's complaints, Continuance of care, Re-evaluation by your physician Followup: shadia - With: Evelio Davalos MD - When: 2 - 3 days - Reason: Recheck today's complaints, Re-evaluation by your physician Discharge Instructions: - Discharge Summary Sheet shadia - Joint Pain shadia - How to Use a Knee Brace shadia - Musculoskeletal Pain shadia - Acute Knee Pain, Adult shadia - How to Use Cold Therapy, Utgk-[id number] shadia - Edema, Olsk-jt-Flqx shadia - Arthritis, Vhph-[id number]-Qqcr shadia - Acute Knee Pain, Adult, Slcj-jv-Yaif shadia - Joint Pain, Tqta-qo-Cjbh shadia - Chronic Knee Pain, Adult, Wayl-zx-Svhn shadia Forms: - Medication Reconciliation Form shadia - Antibiotic Education shadia - Prescription Opioid Use [facility] - Patient Portal Instructions [facility] - Leadership Thank You Letter [facility] Prescriptions: - acetaminophen-codeine 300-30 mg Oral tablet - take 1 tablet ORAL route every 4-6 hours as needed for pain; 20 tablet; [facility] Refills: 0, Product Selection Permitted - Motrin IB 200 mg Oral tablet - take 2 tablet ORAL route every 6 hours As needed as needed with food; 30 shadia tablet; Refills: 0, Product Selection Permitted Signatures: Dispatcher [employer] Narendra Morales MD MD cha Jaco, Norma RN RN nj1 Radha Epstein RN RN cm10 Corrections: (The following items were deleted from the chart) 18:20 18:20 Extrem Venous W Compression Lei+[id number] ordered. EDMS EDMS
[2024-02-29] MEDS ORDERED: IBUPROFEN 400 MG TAB ONE (19:58)
[2024-02-29] MEDS ORDERED: HYDROCODONE/APAP 7.5/325 MG TAB ONE (19:58)
[2024-02-29] MEDS ORDERED: IBUPROFEN 200 MG TAB PO ONE (19:58)
[2024-03-01 06:53] VITALS: BP 180/73; TEMP 98.6; O2SAT 97
== END 2024-02-29 20:15 | disposition home or self-care (01) ==
LOC: ER 16:26
DX: M25.562 Pain in left knee (principal); M79.605 Pain in left leg; R60.0 Localized edema
CPT/HCPCS: 71046; 93970; 99284

== ENCOUNTER 2024-08-08 10:27 | Inpatient (IN) | payer OTHER ==
[2024-08-08 12:05] LABS: Absolute Lymphocytes (CBC) 1.6 K/uL (0.7-4.9); Absolute Monocytes 0.5 K/uL (0.1-1.3); Absolute Neutrophil 5.6 K/uL (1.8-8.0); Basophils % 0.4 % (0-1.3); Eosinophils % 0.1 % (0-4.4); Hematocrit 40.9 % (36.0-45.0); Hemoglobin 13.6 g/dL (12.0-15.0); Lymphocytes % 20.7 % (15.3-44.8); MCH 31.7 pg (27.0-35.0); MCHC 33.1 g/dL (32.0-36.0); MCV 95.7 fL (80-100); MPV 11.9 fL (7.6-11.3); Monocytes % 6.7 % (3.3-12.3); Neutrophils % 72.1 % (41.7-73.7); Nucleated Red Blood Cells % 0.1 % (0-0); Platelets 131 thou/uL (152-406); RBC Red Blood Cell Count 4.28 M/uL (3.86-4.86)
[2024-08-08 12:07] LABS: PT Prothrombin Time 11.8 SECONDS (9.4-12.5); Protime INR 1.13
--- NOTE | 2024-08-08 12:08 | RAD REPORT ---
EXAMINATION: CT ABDOMEN AND PELVIS WITHOUT CONTRAST CLINICAL INDICATION: ABD PAIN TECHNIQUE: CT abdomen and pelvis was performed, without IV contrast, as per department protocol. Axia l, sagittal and coronal reconstructions were obtained. One or more of the following dose reduction techniques were used: Automated exposure control, adjustment of the mA and kV according to the patien t size, and iterative reconstruction. Unless otherwise specified, incidental findings do not require dedicated imaging follow-up. COMPARISON: 12/08/2023 FINDINGS: The lack of intravenous contrast limits the sensitivity of this exam for evaluation of solid visceral organs, vascular structures, and retroperitoneum. LOWER CHEST: The visualized lung bases are clear. Small hiatal hernia. LIVER:Normal in size and contour. No focal lesion. Grossly unremarkable gallbladder. SPLEEN: Normal size. No focal lesion. PANCREAS: No mass, ductal dilation, or marcelino-pancreatic fluid. ADRENALS: Normal; no mass. KIDNEYS AND URETERS: Normal size and contour. No hydronephrosis. URINARY BLADDER: Small air bubbles noted. GASTROINTESTINAL TRACT: No evidence of bowel obstruction, significant free fluid, free air or abscess . APPENDIX: Appendix not visualized, but no inflammatory changes in region of appendix. LYMPH NODES: No lymphadenopathy. MUSCULOSKELETAL: Mild multilevel spinal degenerative changes. ADDITIONAL FINDINGS: Aortoiliac atherosclerosis. IMPRESSION: Small air bubbles in the urinary bladder suggests cystitis or recent instrumentation. Elsewhere, no acute finding is seen.
[2024-08-08] MEDS ORDERED: ONDANSETRON 4 MG/2 ML VIAL ONE (12:21)
[2024-08-08] MEDS ORDERED: NA CHLORIDE 0.9% 1,000 ML ONE (12:21)
[2024-08-08 12:47] LABS: SARS-CoV-2 Antigen CONTROL BLUE LINE VIS/BG OK
[2024-08-08 12:48] LABS: SARS-CoV-2 Antigen Rapid Res Positive (Negative)
--- NOTE | 2024-08-08 13:03 | RAD REPORT ---
EXAMINATION: ONE VIEW CHEST XR CLINICAL INDICATION: CHEST PAIN TECHNIQUE: Frontal chest projection is submitted. Examination is limited by patient positioning and t echnique. COMPARISON: 02/29/2024 FINDINGS: The lungs are well inflated and clear. The heart is upper limit of normal in size. No displaced fract ures identified. Right total shoulder reverse arthroplasty. IMPRESSION: No acute intrathoracic abnormalities.
[2024-08-08 13:04] LABS: Albumin 3.6 g/dL (3.4-5.0); Albumin/Globulin Ratio 0.8 (1.1-1.8); Anion Gap 11.3 mEq/L (5.0-15.0); Bilirubin Direct 0.2 mg/dL (0-0.2); Bilirubin Indirect, Calculated 0.4 mg/dL (0.2-0.8); Bilirubin Total 0.6 mg/dL (0.2-1.0); Globulin 4.5 g/dL (2.3-3.5); Potassium 3.3 mEq/L (3.5-5.1); Protein, Total 8.1 g/dL (6.4-8.2)
[2024-08-08 13:12] LABS: Troponin High Sensitivity 89.5 pg/mL (<58.9)
--- NOTE | 2024-08-08 13:55 | EDPHYS ---
Physician Documentation [facility] Name: Kayleigh Cooney Age: 89 yrs Sex: Female : 1935 Arrival Date: 08/08/2024 Time: 10:27 Bed 14 Private MD: ED Physician Narendra Guajardo HPI: 08/08 13:44 This 89 yrs old Female presents to ER via Ambulatory with complaints of shadia Vomiting/Diarrhea. 13:44 The patient presents to the emergency department with nausea, diarrhea. Onset: The shadia symptoms/episode began/occurred 5 day(s) ago. 13:45 Possible causes: unknown. The patient or guardian reports cough, described as mild, shadia described as moderate, difficulty breathing, flu symptoms, arthralgias, low-grade fever, myalgias. Modifying factors: The symptoms are alleviated by nothing. the symptoms are aggravated by activity, cold environment, lying flat. Associated signs and symptoms: Pertinent positives: diarrhea, nausea. The patient reports fever, not measured (subjective). Historical: - Allergies: 10:56 No Known Allergies; cm10 - PMHx: 10:55 Diverticulitis; Hypertension; cm10 - PSHx: 10:55 Bladder lift; diverticulosis SX; shoulder replacement; wrist FX; cm10 - Immunization history:: Adult Immunizations up to date. - Infectious Disease History:: Denies. - Social history:: Smoking status: Patient denies any tobacco usage or history of. ROS: 13:45 Constitutional: Negative for fever, chills, and weight loss, Eyes: Negative for injury, shadia pain, redness, and discharge, ENT: Negative for injury, pain, and discharge, Neck: Negative for injury, pain, and swelling, Cardiovascular: Negative for chest pain, palpitations, and edema, Back: Negative for injury and pain, : Negative for injury, bleeding, discharge, and swelling, MS/Extremity: Negative for injury and deformity, Skin: Negative for injury, rash, and discoloration, Psych: Negative for depression, anxiety, suicide ideation, homicidal ideation, and hallucinations, Allergy/Immunology: Negative for hives, rash, and allergies, Endocrine: Negative for neck swelling, polydipsia, polyuria, polyphagia, and marked weight changes, Hematologic/Lymphatic: Negative for swollen nodes, abnormal bleeding, and unusual bruising, 13:45 Respiratory: Positive for cough, "sounds productive", shortness of breath, at rest. 13:45 Abdomen/GI: Positive for nausea and vomiting, diarrhea, 13:45 Neuro: Positive for weakness, Exam: 13:45 Constitutional: This is a well developed, well nourished patient who is awake, alert, shadia and in no acute distress. Head/Face: Normocephalic, atraumatic. Eyes: Pupils equal round and reactive to light, extra-ocular motions intact. Lids and lashes normal. Conjunctiva and sclera are non-icteric and not injected. Cornea within normal limits. Periorbital areas with no swelling, redness, or edema. ENT: Nares patent. No nasal discharge, no septal abnormalities noted. Tympanic membranes are normal and external auditory canals are clear. Oropharynx with no redness, swelling, or masses, exudates, or evidence of obstruction, uvula midline. Mucous membranes moist. Neck: Trachea midline, no thyromegaly or masses palpated, and no cervical lymphadenopathy. Supple, full range of motion without nuchal rigidity, or vertebral point tenderness. No Meningismus. Chest/axilla: Normal chest wall appearance and motion. Nontender with no deformity. No lesions are appreciated. Cardiovascular: Regular rate and rhythm with a normal S1 and S2. No gallops, murmurs, or rubs. Normal PMI, no JVD. No pulse deficits. Abdomen/GI: Soft, non-tender, with normal bowel sounds. No distension or tympany. No guarding or rebound. No evidence of tenderness throughout. Back: No spinal tenderness. No costovertebral tenderness. Full range of motion. Female : Normal external genitalia. Skin: Warm, dry with normal turgor. Normal color with no rashes, no lesions, and no evidence of cellulitis. MS/ Extremity: Pulses equal, no cyanosis. Neurovascular intact. Full, normal range of motion., bilateral aka Neuro: Awake and alert, GCS 15, oriented to person, place, time, and situation. Cranial nerves II-XII grossly intact. Motor strength 5/5 in all extremities. Sensory grossly intact. Cerebellar exam normal. Normal gait. Psych: Awake, alert, with orientation to person, place and time. Behavior, mood, and affect are within normal limits. 13:45 ECG was reviewed by the Attending Physician. 13:45 Respiratory: the patient does not display signs of respiratory distress, Respirations: labored breathing, is not present, Breath sounds: bronchial sounds, that are moderate, are scattered, decreased breath sounds, that are mild, are located in both bases, rhonchi, that are moderate, are scattered, stridor, is not appreciated, + upper airway congestion. wheezing: expiratory 14:06 ECG was reviewed by the Attending Physician. [facility] Vital Signs: 10:54 BP 156 / 57; Pulse 65; Resp 15; Temp 97.8; Pulse Ox 94% on R/A; Weight 71.67 kg; Height cm10 5 ft. 0 in. ; Pain 0/10; 15:40 BP 155 / 86; Pulse 86; Resp 16 S; Pulse Ox 100% on R/A; kc6 10:54 Body Mass Index 30.86 (71.67 kg, 152.4 cm) cm10 10:54 Pain Scale: Adult cm10 MDM: 10:35 Medical Screening Exam initiated [facility] 13:47 Antibiotic administration: Rocephin and Zithromax given. Differential diagnosis: [facility] obstructed airway, tracheal injury, bronchitis, Nonspecific abd pain, gastritis, pancreatitis, appendicitis, viral gastroenteritis, gastroenteritis, viral Infection, bacterial infection, URI, bronchitis, pneumonia UTI, gastroenteritis, meningitis. Data reviewed: vital signs, nurses notes, EMS record, lab test result(s), EKG, radiologic studies, CT scan, plain films. Consideration of Admission/Observation Patient was admitted/placed on observation. Escalation of care including admission/observation considered. I considered the following discharge prescriptions or medication management in the emergency department Medications were administered in the Emergency Department. See MAR. Independent interpretation of the following test(s) in the Emergency Department EKG: See my EKG interpretation above. Test considered but Not performed: Ultrasound no renal usg. Historians other than the Patient: pt well informed. Care significantly affected by the following chronic conditions: Hypertension, diverticulitis. Counseling: I had a detailed discussion with the patient and/or guardian regarding the historical points, exam findings, and any diagnostic results supporting the discharge/admit diagnosis, lab results, radiology results, the need for further work-up and treatment in the hospital. 08/08 10:36 Order name: Urinalysis w/ reflexes [facility] 08/08 11:52 Order name: Basic Metabolic Panel EDPA 08/08 11:52 Order name: Liver (Hepatic) Function EDMS 08/08 11:52 Order name: Troponin High Sensitivity EDMS 08/08 11:52 Order name: NT PRO-BNP EDPA 08/08 11:52 Order name: Magnesium EDMS 08/08 11:52 Order name: Lipase EDMS 08/08 11:52 Order name: SARS-COV-2 Antigen Rapid EDMS 08/08 11:52 Order name: CBC with Automated Diff EDMS 08/08 11:52 Order name: Protime (+INR) EDMS 08/08 11:54 Order name: Influenza Screen (A EDMS 08/08 12:07 Order name: Protime (+INR); Complete Time: 13:34 EDMS 08/08 12:08 Order name: CBC with Automated Diff; Complete Time: 13:34 EDMS 08/08 12:48 Order name: SARS-COV-2 Antigen Rapid; Complete Time: 13:34 EDMS 08/08 12:48 Order name: Influenza Screen (A ; Complete Time: 13:34 EDMS 08/08 13:12 Order name: Basic Metabolic Panel; Complete Time: 13:34 EDMS 08/08 13:12 Order name: Liver (Hepatic) Function; Complete Time: 13:34 EDMS 08/08 13:12 Order name: Troponin High Sensitivity; Complete Time: 13:34 EDMS 08/08 13:12 Order name: NT PRO-BNP; Complete Time: 13:34 EDMS 08/08 13:12 Order name: Magnesium; Complete Time: 13:34 EDMS 08/08 13:12 Order name: Lipase; Complete Time: 13:34 EDMS 08/08 13:36 Order name: Urine Culture [facility] 08/08 13:50 Order name: Blood Culture Adult (2) [facility] 08/08 15:24 Order name: Urinalysis w/ reflexes EDPA 08/08 15:24 Order name: CBC with Automated Diff EDMS 08/08 15:24 Order name: CBC with Automated Diff EDMS 08/08 15:24 Order name: CBC with Automated Diff EDMS 08/08 15:24 Order name: CBC with Automated Diff EDMS 08/08 15:24 Order name: Comprehensive Metabolic Panel EDPA 08/08 15:24 Order name: Comprehensive Metabolic Panel EDPA 08/08 15:24 Order name: Comprehensive Metabolic Panel EDPA 08/08 15:24 Order name: Comprehensive Metabolic Panel EDMS 08/08 15:24 Order name: Lipid Profile EDMS 08/08 15:24 Order name: Lipid Profile EDMS 08/08 15:24 Order name: Magnesium EDMS 08/08 15:24 Order name: Magnesium EDMS 08/08 15:24 Order name: Phosphorus EDMS 08/08 15:24 Order name: Phosphorus EDMS 08/08 15:24 Order name: Phosphorus EDMS 08/08 15:24 Order name: Phosphorus EDMS 08/08 15:24 Order name: Troponin High Sensitivity EDMS 08/08 15:24 Order name: Troponin High Sensitivity EDMS 08/08 15:24 Order name: Troponin High Sensitivity EDMS 08/08 10:54 Order name: Abdomen EDMS 08/08 11:00 Order name: Chest Single View EDMS 08/08 12:09 Order name: CT; Complete Time: 13:34 EDMS 08/08 13:03 Order name: RAD; Complete Time: 13:34 EDPA 08/08 10:36 Order name: Cardiac monitoring; Complete Time: 13:23 shadia 08/08 10:36 Order name: EKG - Nurse/Tech; Complete Time: 12:58 shadia 08/08 10:36 Order name: IV Saline Lock; Complete Time: 11:44 shadia 08/08 10:36 Order name: Labs collected and sent; Complete Time: 11:44 shadia 08/08 10:36 Order name: O2 Per Protocol; Complete Time: 13:22 shadia 08/08 10:36 Order name: O2 Sat Monitoring; Complete Time: 13:22 shadia 08/08 13:56 Order name: Misc. Order: need EKG; Complete Time: 14:04 [facility] EC:06 Rate is 61 beats/min. Rhythm is regular. QRS [place] is Normal. OK interval is prolonged shadia at 222 msec. QRS interval is normal. QT interval is normal. No Q waves. T waves are Normal. No ST changes noted. Clinical impression: NSR w/ Non-specific ST/T Changes and No evidence of ischemia. Interpreted by me. Reviewed by me. Administered Medications: 12:58 Drug: NS 0.9% IV 1000 ml IV at 1 bolus Per protocol; to be given as a bolus over 60 jl7 minutes Route: IV; Rate: 1 bolus; Site: right antecubital; 15:39 Follow up: Response: No adverse reaction; IV Status: Completed infusion; IV Intake: kc6 1000ml 12:58 Drug: Ondansetron IVP 4 mg IVP once; over 2 minutes Route: IVP; Site: right antecubital;jl7 15:38 Follow up: Response: No adverse reaction kc6 15:07 Drug: Rocephin IV 1 grams IV at per protocol once; Given slow IV push per pharmacy kc6 instructions Route: IV; Rate: per protocol; Site: left antecubital; 15:38 Follow up: Response: No adverse reaction; IV Status: Completed infusion; IV Intake: [id number] 15:07 Drug: Famotidine IVP 20 mg IVP once; dilute with 10 mL 0.9% NaCl; give over 2 minutes kc6 Route: IVP; Site: right antecubital; 15:38 Follow up: Response: No adverse reaction kc6 15:07 Drug: Oseltamivir PO 75 mg PO once Route: PO; kc6 15:38 Follow up: Response: No adverse reaction kc6 15:07 Drug: Levalbuterol Inhalation 2.5 mg Inhalation once Route: Inhalation; kc6 15:38 Follow up: Response: No adverse reaction kc6 15:07 Drug: Ipratropium Inhalation Aerosol 0.5 mg Inhalation once Route: Inhalation; kc6 15:38 Follow up: Response: No adverse reaction kc6 15:07 Drug: Aspirin PO Chewable Tablet 162 mg PO once Route: PO; kc6 15:37 Follow up: Response: No adverse reaction kc6 15:08 Drug: Zithromax IVPB 500 mg IVPB once over 1 hrs; mix in 250 mL NS Route: IVPB; Infused kc6 Over: 1 hrs; Site: left antecubital; 16:27 Follow up: Response: No adverse reaction; IV Status: Completed infusion; IV Intake: kc6 250ml Disposition Summary: 08/08/24 13:54 Hospitalization Ordered Notes: Hospitalization Status: Inpatient Admission shadia Provider: Manuel De Luna cha Location: Telemetry/MedSurg (Inpatient) shadia Condition: Fair shadia Problem: new shadia Symptoms: have improved shadia Bed/Room Type: Standard [facility] Room Assignment: 232(08/08/24 15:30) bd Diagnosis - Influenza due to identified novel influenza A virus with other respiratory shadia manifestations - Pneumonia due to SARS-associated coronavirus shadia - Acute kidney failure, unspecified - on chronic shadia - UTI/ Urinary tract infection, site not specified shadia - Vomiting shadia - Non ST elevation [place] shadia Forms: - Medication Reconciliation Form shadia - SBAR form shadia - Leadership Thank You Letter [facility] Signatures: Dispatcher [employer] EDMS Cat Ashton Corey, MD MD cha Leal, Jahala RN RN jl7 Kimberly Magana RN RN kc6 Radha Epstein RN RN cm10 Corrections: (The following items were deleted from the chart) 10:36 10:36 Urinalysis+U.LAB.BRZ ordered. EDMS EDMS 10:36 10:36 Chest Single View+RAD.RAD.BRZ ordered. EDMS EDMS 10:36 10:36 Abdomen Pelvis Wo Con+CT.RAD.BRZ ordered. EDMS EDMS 13:37 13:37 Urine Culture+BA.LAB.BRZ ordered. EDMS EDMS 13:40 10:57 SARS-COV-2 Antigen Rapid+I.LAB.BRZ ordered. EDMS EDMS 13:54 13:36 [place] ordered. [facility] kc6 15:05 10:36 BASIC METABOLIC PANEL+C.LAB.BRZ ordered. EDMS EDMS 15:05 10:36 HEPATIC FUNCTION+C.LAB.BRZ ordered. EDMS EDMS 15:05 10:36 MAGNESIUM+C.LAB.BRZ ordered. EDMS EDMS 15:05 10:36 PROBNP+C.LAB.BRZ ordered. EDMS EDMS 15:05 10:36 Troponin High Sensitivity+C.LAB.BRZ ordered. EDMS EDMS 15:05 10:36 LIPASE+C.LAB.BRZ ordered. EDMS EDMS 15:06 10:36 CBC+H.LAB.BRZ ordered. EDMS EDMS 15:06 10:36 PROTIME (+INR)+COAG.LAB.BRZ ordered. EDMS EDMS 15:06 10:57 Influenza Screen (A \\T\\ B)+BA.LAB.BRZ ordered. EDMS EDMS 15:30 13:54 [facility] bd
--- NOTE | 2024-08-08 13:55 | ER ---
Nurse's Notes [facility] Name: Kayleigh Cooney Age: 89 yrs Sex: Female : 1935 Arrival Date: 08/08/2024 Time: 10:27 Bed 14 Private MD: Diagnosis: Influenza due to identified novel influenza A virus with other respiratory manifestations;Pneumonia due to SARS-associated coronavirus;Acute kidney failure, unspecified-on chronic;UTI/ Urinary tract infection, site not specified;Vomiting;Non ST elevation [place] Presentation: 08/08 10:54 Chief complaint: Patient states: Cough, nausea, diarrhea, and vomiting onset . cm10 Pt also reports generalized body aches. Coronavirus screen: Client denies travel out of the [place] in the last 14 days. Ebola Screen: Patient denies travel to an Ebola-affected area in the 21 days before illness onset. Initial Sepsis Screen: Does the patient meet any 2 criteria? No. Patient's initial sepsis screen is negative. Does the patient have a suspected source of infection? No. Patient's initial sepsis screen is negative. Risk Assessment: Do you want to hurt yourself or someone else? Patient reports no desire to harm self or others. Onset of symptoms was August 03, 2024. 10:54 Method Of Arrival: Ambulatory cm10 10:54 Acuity: WON 3 cm10 Triage Assessment: 10:56 General: Appears in no apparent distress. uncomfortable, Behavior is calm, cooperative. cm10 Neuro: No deficits noted. Level of Consciousness is awake, alert, obeys commands, Oriented to person, place, time, situation, Appropriate for age. Respiratory: No deficits noted. Airway is patent Respiratory effort is even, unlabored, Respiratory pattern is regular, symmetrical. GI: Reports diarrhea, nausea, vomiting. Historical: - Allergies: 10:56 No Known Allergies; cm10 - PMHx: 10:55 Diverticulitis; Hypertension; cm10 - PSHx: 10:55 Bladder lift; diverticulosis SX; shoulder replacement; wrist FX; cm10 - Immunization history:: Adult Immunizations up to date. - Infectious Disease History:: Denies. - Social history:: Smoking status: Patient denies any tobacco usage or history of. Screenin:39 [facility] ED Fall Risk Assessment (Adult) History of falling in the last 3 months, kc6 including since admission No falls in past 3 months (0 pts) Confusion or Disorientation No (0 pts) Intoxicated or Sedated No (0 pts) Impaired Gait No (0 pts) Mobility Assist Device Used No (0 pt) Altered Elimination No (0 pt) Score/Fall Risk Level 0 - 2 = Low Risk Oriented to surroundings, Maintained a safe environment, Educated pt \T\ family on fall prevention, incl call for assistance when getting out of bed. Abuse screen: Denies threats or abuse. Denies injuries from another. Nutritional screening: No deficits noted. Tuberculosis screening: No symptoms or risk factors identified. Assessment: 15:41 General: Appears in no apparent distress. comfortable, well groomed, well developed, kc6 Behavior is calm, cooperative, appropriate for age, Reports feeling ill for > 3 days, fatigue for >3 days. Pain: Denies pain. Neuro: Level of Consciousness is awake, alert, obeys commands, Oriented to person, place, time, situation, Appropriate for age. Cardiovascular: Capillary refill < 3 seconds. Respiratory: Reports shortness of breath on exertion cough that is dry, pain with cough Airway is patent Trachea midline Respiratory effort is even, unlabored, Respiratory pattern is regular, symmetrical, Breath sounds with wheezes bilaterally. GI: Abdomen is flat, non-distended, Bowel sounds present X 4 quads. Abd is soft and non tender X 4 quads. Reports diarrhea, nausea, vomiting, Patient currently denies abdominal pain. : No signs and/or symptoms were reported regarding the genitourinary system. EENT: Reports nasal congestion pain when swallowing. Derm: No signs and/or symptoms reported regarding the dermatologic system. Skin is intact, is healthy with good turgor, Skin is pink, warm \T\ dry. Musculoskeletal: No signs and/or symptoms reported regarding the musculoskeletal system. Circulation, motion, and sensation intact. Range of motion: intact in all extremities. Vital Signs: 10:54 BP 156 / 57; Pulse 65; Resp 15; Temp 97.8; Pulse Ox 94% on R/A; Weight 71.67 kg; Height cm10 5 ft. 0 in. ; Pain 0/10; 15:40 BP 155 / 86; Pulse 86; Resp 16 S; Pulse Ox 100% on R/A; kc6 10:54 Body Mass Index 30.86 (71.67 kg, 152.4 cm) cm10 10:54 Pain Scale: Adult cm10 ED Course: 10:30 Patient arrived in ED. ra3 10:35 Narendra Guajardo MD is Attending Physician. shadia 10:55 Triage completed. cm10 10:55 Arm band placed on right wrist. Patient placed in waiting room. cm10 11:27 Abdomen In Process Unspecified. EDMS 11:44 Initial lab(s) drawn, by me, sent to lab. COVID swab sent to lab. Flu and/or RSV swab bc6 sent to lab. Inserted saline lock: 24 gauge in right antecubital area, using aseptic technique. Blood collected. Flushed with 10 mL NS. 12:08 Chest Single View In Process Unspecified. EDMS 13:12 Notified ED physician of a critical lab result(s). Troponin 89.5. jl7 13:22 Kimberly Magana, RN is Primary Nurse. [facility] 13:53 Manuel De Luna is Hospitalizing Provider. [facility] 13:54 Patient has correct armband on for positive identification. Bed in low position. Call [facility] light in reach. Side rails up X 1. Adult w/ patient. satellite project site monitor on. Pulse ox on. NIBP on. Door closed. Noise minimized. Lights dimmed. Warm blanket given. Pillow given. 16:26 No provider procedures requiring assistance completed. Patient admitted, IV remains in [facility] place. Administered Medications: 12:58 Drug: NS 0.9% IV 1000 ml IV at 1 bolus Per protocol; to be given as a bolus over 60 jl7 minutes Route: IV; Rate: 1 bolus; Site: right antecubital; 15:39 Follow up: Response: No adverse reaction; IV Status: Completed infusion; IV Intake: kc6 1000ml 12:58 Drug: Ondansetron IVP 4 mg IVP once; over 2 minutes Route: IVP; Site: right antecubital;jl7 15:38 Follow up: Response: No adverse reaction [facility] 15:07 Drug: Rocephin IV 1 grams IV at per protocol once; Given slow IV push per pharmacy [facility] instructions Route: IV; Rate: per protocol; Site: left antecubital; 15:38 Follow up: Response: No adverse reaction; IV Status: Completed infusion; IV Intake: [id number] 15:07 Drug: Famotidine IVP 20 mg IVP once; dilute with 10 mL 0.9% NaCl; give over 2 minutes kc6 Route: IVP; Site: right antecubital; 15:38 Follow up: Response: No adverse reaction kc6 15:07 Drug: Oseltamivir PO 75 mg PO once Route: PO; kc6 15:38 Follow up: Response: No adverse reaction kc6 15:07 Drug: Levalbuterol Inhalation 2.5 mg Inhalation once Route: Inhalation; kc6 15:38 Follow up: Response: No adverse reaction kc6 15:07 Drug: Ipratropium Inhalation Aerosol 0.5 mg Inhalation once Route: Inhalation; kc6 15:38 Follow up: Response: No adverse reaction kc6 15:07 Drug: Aspirin PO Chewable Tablet 162 mg PO once Route: PO; kc6 15:37 Follow up: Response: No adverse reaction kc6 15:08 Drug: Zithromax IVPB 500 mg IVPB once over 1 hrs; mix in 250 mL NS Route: IVPB; Infused kc6 Over: 1 hrs; Site: left antecubital; 16:27 Follow up: Response: No adverse reaction; IV Status: Completed infusion; IV Intake: kc6 250ml Medication: 16:26 VIS not applicable for this client. kc6 Intake: 15:38 IV: 10ml; Total: 10ml. kc6 15:39 IV: 1000ml; Total: 1010ml. kc6 16:27 IV: 250ml; Total: 1260ml. kc6 Outcome: 13:54 Decision to Hospitalize by Provider. shadia 16:26 Admitted to Med/surg accompanied by tech, via wheelchair, room 232, with chart, kc6 16:26 Condition: good 16:26 Instructed on the need for admit, 16:27 Patient left the ED. Signatures: Dispatcher [employer] EDWV Narendra Guajardo MD MD cha Baxter, Heather RN RN Desean Valdez RN RN [id number] Kimberly Magana RN RN kc6 Charleen Smith Radha Shelby RN RN cm10 Marcella Acuña ra3 Corrections: (The following items were deleted from the chart) 13:40 11:43 SARS-COV-2 Antigen Rapid+I.LAB.BRZ drawn and sent. [facility] EDMS 15:06 11:44 Influenza Screen (A \T\ B)+BA.LAB.DASHA drawn and sent. bc6 EDMS
[2024-08-08] MEDS ORDERED: LEVALBUTEROL 1.25 MG/3 ML NEB ONE (14:07)
[2024-08-08] MEDS ORDERED: OSELTAMIVIR 75 MG CAP PO ONE (14:07)
[2024-08-08] MEDS ORDERED: IPRATROPIUM BROM 0.5MG/2.5ML ONE (14:07)
[2024-08-08] MEDS ORDERED: FAMOTIDINE 20 MG/2 ML VIAL IV ONE (14:07)
[2024-08-08] MEDS ORDERED: CEFTRIAXONE 1000 MG/VIAL ONE (14:07)
[2024-08-08] MEDS ORDERED: ASPIRIN 81 MG CHEWABLE TABLET ONE (14:07)
[2024-08-08] MEDS ORDERED: AZITHROMYCIN 500 MG INJ IVPB ONE (14:07)
[2024-08-08] MEDS ORDERED: NA CHLORIDE 0.9% 250 ML ONE (14:08)
[2024-08-08] MEDS ORDERED: PROMETHAZINE 25 MG TABLET PO PRN (15:11)
--- NOTE | 2024-08-08 15:11 | P.HP ---
Certification for Inpatient Patient admitted to: Inpatient With expected LOS: >2 Midnights Patient will require the following post-hospital care: None Practitioner: I am a practitioner with admitting privileges, knowledge of patient current condition, hospital course, and medical plan of care. Services: Services provided to patient in accordance with Admission requirements found in Title 42 Section 412.3 of the Code of Federal Regulations Patient History Date of Service: 08/09/24 Reason for admission: Influenza A, COVID upper respiratory infection, cystitis with diarrhea History of Present Illness: Ms. Cooney is a 89-year-old female with a past medical history of diverticulitis and hypertension. She presented to the emergency department with a complaint of nausea, diarrhea, and significant cough over the past 5 days. Ms. Cooney appears young for stated age and is alert, oriented x 3, and ambulatory. Her grandson lives with her but has no symptoms of infection. On evaluation in the emergency department, it was noted that Ms. Cooney is positive for flu A and COVID. Her chest x-ray is clear but at bedside she has a very harsh, wet sound ing cough. She has not been eating and has had multiple episodes of diarrhea. She denies melena or hematochezia. In the medication reconciliation evaluation, is noted she has been on Flagyl and doxycycline from her PCP since 08/07/2024 and 08/04/2024 respectively. Her vital signs are stable and her oxygen saturation is 94% on room air. Laboratory analysis however shows acute kidney injury with a creatinine of 3.65, GFR of 11. In the past year she has had a creatinine elevation to 2 but this would be the highest in her history. Today she has CT evidence of air bubbles in the bladder indicating cystitis. We will admit her for gentle hydration, reevaluation of her kidney function, and management of her symptoms. She does have a mild troponin elevation of 89.5 however denies chest pain and that is likely related to her elevated creatinine/low GFR. We will obtain serial enzymes. Ms. Cooney was started on Tamiflu in the emergency department, Paxlovid has been ordered but held as her renal function is too poor for it to offer benefit over risk. Allergies No Known Allergies Allergy (Verified 08/08/24 22:57) Home medications list reviewed: Yes Home Medications: Cyanocobalamin [Vitamin B-12*] 1,000 mcg PO DAILY 08/07/23 Mv-Min/Folic/Vit [id number] [Alive Women's 50 Plus Tablet] 1 each PO DAILY 0 03/01/23 Nebivolol HCl 10 mg PO DAILY 03/01/23 Amlodipine [Norvasc*] 10 mg PO DAILY tab 12/11/23 Aspirin [Aspirin EC 81 MG] 162 mg PO DAILY #60 tab 12/11/23 Atorvastatin Calcium [Lipitor] 40 mg PO BEDTIME #30 tab 12/11/23 Chlorthalidone [Hygroton 25mg Tab*] 12.5 mg PO DAILY 30 Days #30 tab 12/11/23 Hydralazine HCl 25 mg PO TID 30 Days #90 tab 12/11/23 Psyllium [Metamucil (Hydrocil)*] 1 pkt PO DAILY packet 12/11/23 Topiramate [Topamax] 25 mg PO BID 30 Days #60 tab 12/11/23 cloNIDine HCL [Catapres*] 0.1 mg PO BID PRN tab 12/11/23 - Past Medical/Surgical History Diabetic: No -: Diverticulitis -: Hypertension -: Partial colectomy -: bladder suspension -: r shoulder sx -: right wrist sx due to fracture -: implantation of [employer]tr[employer] device - Family History Father -: Other (see notes) Notes: car accident Mother -: Kidney disease Notes: kidney failure - Social History Smoking Status: Never smoker Alcohol use: Yes CD- Drugs: No Caffeine use: Yes Place of Residence: Home Review of Systems 10-point ROS is otherwise unremarkable General: Weakness, Malaise Eyes: Unremarkable ENT: Unremarkable Respiratory: Cough, As per HPI Cardiovascular: Unremarkable Gastrointestinal: Nausea, Abdominal Pain, Diarrhea, As per HPI Genitourinary: Unremarkable Musculoskeletal: Unremarkable Integumentary: Unremarkable Neurological: Weakness Lymphatics: Unremarkable Physical Examination - Vital Signs Blood Pressure: 155/86 - Physical Exam General: Alert, In no apparent distress, Oriented x3 HEENT: Atraumatic, Normocephalic Neck: Supple Respiratory: Normal air movement, Other (Harsh, wet cough) Cardiovascular: Regular rate/rhythm, Normal S1 S2 Capillary refill: <2 Seconds Gastrointestinal: Non-distended, Hyperactive Musculoskeletal: No clubbing Integumentary: No rashes Neurological: Normal speech, Normal tone, Normal affect Lymphatics: No axilla or inguinal lymphadenopathy External genitalia: Deferred Rectal: Deferred - Studies Laboratory Data (last 24 hrs) 08/08/24 08/08/24 08/08/24 11:35 11:35 11:35 WBC 7.80 Hgb 13.6 Hct 40.9 Plt Count 131 L PT 11.8 INR 1.13 Sodium 134 L Potassium 3.3 L BUN 68 H Creatinine 3.65 H Glucose 88 Magnesium 2.0 Total Bilirubin 0.6 AST 31 ALT 33 Alkaline Phosphatase 83 Lipase 86 H 08/08/24 08/08/24 08/08/24 10:36 10:36 10:36 WBC Cancelled Hgb Cancelled Hct Cancelled Plt Count Cancelled PT Cancelled INR Cancelled Sodium Cancelled Potassium Cancelled BUN Cancelled Creatinine Cancelled Glucose Cancelled Magnesium Cancelled Total Bilirubin Cancelled AST Cancelled ALT Cancelled Alkaline Phosphatase Cancelled Lipase Cancelled Microbiology Data (last 24 hrs): 08/08/24 11:40 Nasopharnyx Influenza Type A Antigen Screen - Final Assessment and Plan - Plan Influenza COVID Cystitis Anorexia with volume depletion with WEN Elevated cardiac enzymes likely secondary to WEN Gentle hydration Serial enzymes Tamiflu IV antibiotics Antivirals Reassessment of kidney function Symptom management/pain control Hypertension Hydralazine 25 mg p.o. 3 times daily Nebivolol 10 mg p.o. daily Monitor and trend Hyperlipidemia Atorvastatin 40 mg p.o. nightly VTE/GI prophylaxis Discharge Plan: Home Plan to discharge in: 72 Hours - Advance Directives Does patient have a Living Will: No Does patient have a Durable POA for Healthcare: No - Code Status/Comfort Care Code Status Assessed: Yes (Full)
[2024-08-08] MEDS: NA CHLORIDE 0.9% 1,000 ML IV SCH (17:50)
[2024-08-08] MEDS: METRONIDAZOLE 500mg IVPB 250 MG/50 ML BAG IV SCH (17:50)
[2024-08-08] MEDS: ALBUTEROL 2.5 MG/3 ML NEB SOL NEB SCH (21:05)
[2024-08-08] MEDS: IPRATROPIUM BROM 0.5MG/2.5ML NEB SCH (21:05)
[2024-08-08] MEDS: ATORVASTATIN 40 MG TAB PO SCH (21:28)
[2024-08-08] MEDS: DULERA 100/5 (MOMETASONE/FORMOTEROL) INHALER IH SCH (21:28)
[2024-08-08] MEDS: HEPARIN 5000 UNIT/ML 1 ML VIAL SQ SCH (21:28)
[2024-08-08] MEDS: OSELTAMIVIR 75 MG CAP PO SCH (21:29)
[2024-08-08 22:36] LABS: Troponin High Sensitivity 104.2 pg/mL (<58.9)
[2024-08-08 22:56] LABS: Potassium 3.2 mEq/L (3.5-5.1)
[2024-08-09] MEDS: POTASSIUM 25 MEQ EFFERV TAB PO ONE (00:04)
[2024-08-09 01:21] LABS: Renal Epithelial <5 /HPF (None Seen); Specific Gravity 1.011 (1.005-1.030); Sqamous Epithelial <5 /HPF (None Seen); Urine Bacteria <20 /HPF (<20); Urine Bilirubin NEGATIVE (Negative); Urine Blood 1+ (Negative); Urine Clarity Extremely Turbid (Clear); Urine Color Light-Yellow (Yellow); Urine Culture Reflex Order REFLEXED; Urine Glucose NEGATIVE (Negative); Urine Ketones NEGATIVE (Negative); Urine Microscopic Reflex YN ORDER UMIC; Urine Mucus Slight /HPF (None Seen); Urine Nitrite NEGATIVE (Negative); Urine Protein 1+ (Negative); Urine Urobilinogen Normal (Normal); Urine WBC 20-50 /HPF (<5); Urine Yeast (Budding) Trace /HPF (None Seen); Urine pH 5.5 (5.0-7.0)
[2024-08-09 05:32] LABS: Absolute Basophils 0.1 K/uL (0-0.5); Absolute Lymphocytes (CBC) 1.5 K/uL (0.7-4.9); Absolute Monocytes 0.6 K/uL (0.1-1.3); Absolute Neutrophil 4.4 K/uL (1.8-8.0); Basophils % 0.8 % (0-1.3); Eosinophils % 0.3 % (0-4.4); Hematocrit 33.6 % (36.0-45.0); Hemoglobin 11.4 g/dL (12.0-15.0); MCH 32.3 pg (27.0-35.0); MCHC 33.9 g/dL (32.0-36.0); MCV 95.3 fL (80-100); MPV 11.4 fL (7.6-11.3); Monocytes % 9.1 % (3.3-12.3); Neutrophils % 66.8 % (41.7-73.7); Nucleated Red Blood Cells % 0.1 % (0-0); Platelets 108 thou/uL (152-406); RBC Red Blood Cell Count 3.52 M/uL (3.86-4.86); Red Cell Distribution Width 13.2 % (12.1-15.2)
[2024-08-09 05:54] LABS: Albumin 2.5 g/dL (3.4-5.0); Albumin/Globulin Ratio 0.8 (1.1-1.8); Anion Gap 10.7 mEq/L (5.0-15.0); Bilirubin Total 0.4 mg/dL (0.2-1.0); Globulin 3.2 g/dL (2.3-3.5); Magnesium 1.8 mg/dL (1.6-2.4); Phosphorus 3.6 mg/dL (2.5-4.9); Potassium 3.7 mEq/L (3.5-5.1); Protein, Total 5.7 g/dL (6.4-8.2)
[2024-08-09 06:08] LABS: Troponin High Sensitivity 164.8 pg/mL (<58.9)
[2024-08-09] MEDS: MAGNESIUM SULFATE 1 gm IVPB 1 GM/100 ML BAG IV ONE (06:33)
[2024-08-09] MEDS ORDERED: FLU (Fluarix Triv) TS24-25(6MOS UP)/PF 45 MCG/0.5 ML Syringe IM ONE (07:15)
--- NOTE | 2024-08-09 08:45 | P.PN ---
Date of Service: 08/09/24 Subjective Diarrhea x 2 overnight Review of Systems 10-point ROS is otherwise unremarkable General: Weakness, Malaise Eyes: Unremarkable ENT: Unremarkable Respiratory: Cough, As per HPI Cardiovascular: Unremarkable Gastrointestinal: Diarrhea, As per HPI Genitourinary: Unremarkable Musculoskeletal: Unremarkable Integumentary: Unremarkable Neurological: Weakness Lymphatics: Unremarkable Physical Examination - Vital Signs Blood Pressure: 155/86 afebrile - Physical Exam General: resting with eyes closed, no O2 requirement, In no apparent distress, Oriented x3 HEENT: Atraumatic, Normocephalic Neck: Supple Respiratory: Normal air movement, Other (Harsh, wet cough) Cardiovascular: Regular rate/rhythm, Normal S1 S2 Capillary refill: <2 Seconds Gastrointestinal: Non-distended, Hyperactive Musculoskeletal: No clubbing Integumentary: No rashes Neurological: Normal speech, Normal tone, Normal affect Lymphatics: No axilla or inguinal lymphadenopathy External genitalia: Deferred Rectal: Deferred - Studies Laboratory Data (last 24 hrs) 08/08/24 08/08/24 08/08/24 11:35 11:35 11:35 WBC 7.80 Hgb 13.6 Hct 40.9 Plt Count 131 L PT 11.8 INR 1.13 Sodium 134 L Potassium 3.3 L BUN 68 H Creatinine 3.65 H Glucose 88 Magnesium 2.0 Total Bilirubin 0.6 AST 31 ALT 33 Alkaline Phosphatase 83 Lipase 86 H 08/08/24 08/08/24 08/08/24 10:36 10:36 10:36 WBC Cancelled Hgb Cancelled Hct Cancelled Plt Count Cancelled PT Cancelled INR Cancelled Sodium Cancelled Potassium Cancelled BUN Cancelled Creatinine Cancelled Glucose Cancelled Magnesium Cancelled Total Bilirubin Cancelled AST Cancelled ALT Cancelled Alkaline Phosphatase Cancelled Lipase Cancelled Microbiology Data (last 24 hrs): 08/08/24 11:40 Nasopharnyx Influenza Type A Antigen Screen - Final Assessment and Plan - Plan Influenza COVID Cystitis Anorexia with volume depletion with WEN Elevated cardiac enzymes likely secondary to WEN/NSTEMI Gentle hydration (Creatinine improved with gentle hyration from 3.65 to 2.72, GFR 11 to 16.) Serial enzymes , mildly increased over admission to 104 at 2145, this morning 164.8 (NSTEMI likely second to COVID/WEN) Tamiflu IV antibiotics Antivirals Reassessment of kidney function Symptom management/pain control Hypertension Hydralazine 25 mg p.o. 3 times daily Nebivolol 10 mg p.o. daily Monitor and trend Hyperlipidemia Atorvastatin 40 mg p.o. nightly (will decrease 2nd to creatinine) VTE/GI prophylaxis (heparin) Discharge Plan: Home Plan to discharge in: 72 Hours - Advance Directives Does patient have a Living Will: No Does patient have a Durable POA for Healthcare: No - Code Status/Comfort Care Code Status Assessed: Yes (Full)
[2024-08-09] MEDS: CEFTRIAXONE 1,000 MG in NA CHLORIDE 0.9% 50 ML IVPB SCH (09:21)
[2024-08-09] MEDS: ASPIRIN 81 MG CHEWABLE TABLET PO SCH (09:21)
[2024-08-09] MEDS: NEBIVOLOL HCL 5 MG TAB PO SCH (09:21)
[2024-08-09] MEDS: NIRMATRELVIR/RITONAVIR TABLET PO SCH (09:21)
[2024-08-09] MEDS: POTASSIUM CL SA 10 MEQ TAB PO ONE (09:22)
--- NOTE | 2024-08-09 09:42 | P.CNS ---
Date of Consult: 08/09/24 Reason for Consult: WEN/ CKD Requesting Physician: deedee garcia Chief Complaint: Influenza A, COVID upper respiratory infection, cystitis with diarrhea History of Present Illness: Ms. Cooney is a 89-year-old female with a past medical history of diverticulitis and hypertension. She presented to the emergency department with a complaint of nausea, diarrhea, and significant cough over the past 5 days. Ms. Cooney appears young for stated age and is alert, oriented x 3, and ambulatory. Her grandson lives with her but has no symptoms of infection. On evaluation in the emergency department, it was noted that Ms. Cooney is positive for flu A and COVID. Her chest x-ray is clear but at bedside she has a very harsh, wet sounding cough. She has not been eating and has had multiple episodes of diarrhea. She denies melena or hematochezia. In the medication reconciliation evaluation, is noted she has been on Flagyl and doxycycline from her PCP since 08/07/2024 and 08/04/2024 respectively. Her vital signs are stable and her oxygen saturation is 94% on room air. Laboratory analysis however shows acute kidney injury with a creatinine of 3.65, GFR of 11. In the past year she has had a creatinine elevation to 2 but this would be the highest in her history. Today she has CT evidence of air bubbles in the bladder indicating cystitis. We will admit her for gentle hydration, reevaluation of her kidney function, and managem ent of her symptoms. She does have a mild troponin elevation of 89.5 however denies chest pain and that is likely related to her elevated creatinine/low GFR. We will obtain serial enzymes. Ms. Cooney was started on Tamiflu in the emergency department, Paxlovid has been ordered but held as her renal function is too poor for it to offer benefit over risk. 13:44 This 89 yrs old Female presents to ER via Ambulatory with complaints of shadia Vomiting/Diarrhea. 13:44 The patient presents to the emergency department with nausea, diarrhea. Onset: The shadia symptoms/episode began/occurred 5 day(s) ago. 13:45 Possible causes: unknown. The patient or guardian reports cough, described as mild, shadia described as moderate, difficulty breathing, flu symptoms, arthralgias, low- grade fever, myalgias. Modifying factors: The symptoms are alleviated by nothing. the symptoms are aggravated by activity, cold environment, lying flat. Associated signs and symptoms: Pertinent positives: diarrhea, nausea. The patient reports fever, not measured (subjective). Allergies No Known Allergies Allergy (Verified 08/08/24 22:57) Home medications list reviewed: Yes Home Medications: Nebivolol HCl 10 mg PO DAILY 03/01/23 Aspirin [Aspirin EC 81 MG] 162 mg PO DAILY #60 tab 12/11/23 Atorvastatin Calcium [Lipitor] 40 mg PO BEDTIME #30 tab 12/11/23 Chlorthalidone [Hygroton 25mg Tab*] 12.5 mg PO DAILY 30 Days #30 tab 12/11/23 Codeine/APAP [Tylenol #3*] 1 tab PO Q6HR PRN 08/09/24 NIFEdipine [Nifedipine ER] 60 mg PO DAILY 08/09/24 - Past Medical/Surgical History Diabetic: No -: Diverticulitis -: HTN -: HLD -: CKD (Dr. Mcmullen/ Arv[facility]) -: Partial colectomy -: bladder suspension -: r shoulder sx -: right wrist sx due to fracture -: implantation of [employer]tr[employer] device - Family History Father Medical History: Other (see notes) Notes: car accident Mother Medical History: Kidney disease Notes: kidney failure - Social History Smoking Status: Unknown if ever smoked Alcohol use: Yes CD- Drugs: No Caffeine use: Yes Place of Residence: Home Review of Systems 10-point ROS is otherwise unremarkable General: Weakness, Malaise Gastrointestinal: Diarrhea Physical Examination Temp Pulse Resp BP Pulse Ox 98.2 F 65 14 155/86 H 100 08/09/24 08:00 08/09/24 08:00 08/09/24 08:00 08/09/24 08:34 08/09/24 08:00 General: In no apparent distress, Oriented x3, Cooperative HEENT: Atraumatic Neck: Supple Respiratory: Clear to auscultation bilaterally, Normal air movement Cardiovascular: No edema, Regular rate/rhythm Gastrointestinal: Soft and benign, Non-distended Musculoskeletal: No clubbing, No contractures Integumentary: No rashes, No cyanosis Neurological: Normal speech Laboratory Data (last 24 hrs) 08/08/24 08/08/24 08/08/24 11:35 11:35 11:35 WBC 7.80 Hgb 13.6 Hct 40.9 Plt Count 131 L PT 11.8 INR 1.13 Sodium 134 L Potassium 3.3 L BUN 68 H Creatinine 3.65 H Glucose 88 Magnesium 2.0 Total Bilirubin 0.6 AST 31 ALT 33 Alkaline Phosphatase 83 Lipase 86 H 08/08/24 08/08/24 08/08/24 10:36 10:36 10:36 WBC Cancelled Hgb Cancelled Hct Cancelled Plt Count Cancelled PT Cancelled INR Cancelled Sodium Cancelled Potassium Cancelled BUN Cancelled Creatinine Cancelled Glucose Cancelled Magnesium Cancelled Total Bilirubin Cancelled AST Cancelled ALT Cancelled Alkaline Phosphatase Cancelled Lipase Cancelled Imagings Data: [id number] EXAMINATION: ONE VIEW CHEST XR CLINICAL INDICATION: CHEST PAIN TECHNIQUE: Frontal chest projection is submitted. Examination is limited by patient positioning and technique. COMPARISON: 02/29/2024 FINDINGS: The lungs are well inflated and clear. The heart is upper limit of normal in size. No displaced fractures identified. Right total shoulder reverse arthroplasty. IMPRESSION: No acute intrathoracic abnormalities. EXAMINATION: CT ABDOMEN AND PELVIS WITHOUT CONTRAST CLINICAL INDICATION: ABD PAIN TECHNIQUE: CT abdomen and pelvis was performed, without IV contrast, as per department protocol. Axial, sagittal and coronal reconstructions were obtained. One or more of the following dose reduction techniques were used: Automated exposure control, adjustment of the mA and kV according to the patient size, and iterative reconstruction. Unless otherwise specified, incidental findings do not require dedicated imaging follow-up. COMPARISON: 12/08/2023 FINDINGS: The lack of intravenous contrast limits the sensitivity of this exam for evaluation of solid visceral organs, vascular structures, and retroperitoneum. LOWER CHEST: The visualized lung bases are clear. Small hiatal hernia. LIVER:Normal in size and contour. No focal lesion. Grossly unremarkable gallbladder. SPLEEN: Normal size. No focal lesion. PANCREAS: No mass, ductal dilation, or marcelino-pancreatic fluid. ADRENALS: Normal; no mass. KIDNEYS AND URETERS: Normal size and contour. No hydronephrosis. URINARY BLADDER: Small air bubbles noted. GASTROINTESTINAL TRACT: No evidence of bowel obstruction, significant free fluid, free air or abscess. APPENDIX: Appendix not visualized, but no inflammatory changes in region of appendix. LYMPH NODES: No lymphadenopathy. MUSCULOSKELETAL: Mild multilevel spinal degenerative changes. ADDITIONAL FINDINGS: Aortoiliac atherosclerosis. IMPRESSION: Small air bubbles in the urinary bladder suggests cystitis or recent instrumentation. Elsewhere, no acute finding is seen. Conclusions/Impression: Stage II WEN in the setting of hypovolemia CKD IV with Proteinuria -No NSAIDs -Change IVF to 1/2NS Hypokalemia -Replete prn HTN with CKD -Continue Hydralazine -Continue Bystolic Hypoalbuminemia -Encourage nutrition Anemia in chronic illness -Monitor H&H Covid Flu A -Continue Paxlovid and Tamiflu Hospitalist and ER notes reviewed Thank you kindly for the consultation
[2024-08-09] MEDS: DIPHENOX/ATROP SULF 1 TAB PO ONE (16:21)
[2024-08-09] MEDS: OSELTAMIVIR 30 MG CAP PO SCH (21:37)
[2024-08-09] MEDS: ATORVASTATIN 10 MG TAB PO SCH (21:37)
[2024-08-10] MEDS: NACHLORIDE 0.45% 1,000 ML IV SCH (00:51)
[2024-08-10] MEDS: ACETAMINOPHEN 500 MG TAB PO PRN (03:29)
[2024-08-10 04:58] LABS: Absolute Eosinophils 0.1 K/uL (0-0.5); Absolute Lymphocytes (CBC) 1.5 K/uL (0.7-4.9); Absolute Monocytes 0.6 K/uL (0.1-1.3); Absolute Neutrophil 6.8 K/uL (1.8-8.0); Basophils % 0.5 % (0-1.3); Eosinophils % 1.6 % (0-4.4); Hematocrit 31.8 % (36.0-45.0); Hemoglobin 10.7 g/dL (12.0-15.0); Lymphocytes % 16.4 % (15.3-44.8); MCHC 33.7 g/dL (32.0-36.0); MCV 94.8 fL (80-100); MPV 11.7 fL (7.6-11.3); Monocytes % 6.3 % (3.3-12.3); Neutrophils % 75.2 % (41.7-73.7); Platelets 92 thou/uL (152-406); RBC Red Blood Cell Count 3.35 M/uL (3.86-4.86); Red Cell Distribution Width 13.3 % (12.1-15.2)
[2024-08-10 05:23] LABS: Albumin 2.5 g/dL (3.4-5.0); Albumin/Globulin Ratio 0.8 (1.1-1.8); Anion Gap 8.4 mEq/L (5.0-15.0); Bilirubin Total 0.7 mg/dL (0.2-1.0); Globulin 3.3 g/dL (2.3-3.5); Magnesium 1.8 mg/dL (1.6-2.4); Phosphorus 1.8 mg/dL (2.5-4.9); Potassium 3.4 mEq/L (3.5-5.1); Protein, Total 5.8 g/dL (6.4-8.2); Uric Acid 8.7 mg/dL (2.6-6.0)
[2024-08-10] MEDS: Magnesium Sulfate 2gm IVPB 2 G/50 ML BAG IV ONE (05:59)
[2024-08-10] MEDS: MAGNESIUM SULFATE 1 gm IVPB 1 GM/100 ML BAG IV ONE (06:33)
[2024-08-10] MEDS: NIRMATRELVIR/RITONAVIR TABLET PO SCH (09:53)
[2024-08-10] MEDS: POTASS/SODIUM PHOSPHATE 1 PKT POWD.PACK PO SCH (09:54)
[2024-08-10] MEDS: POTASSIUM CL SA 10 MEQ TAB PO ONE (09:54)
--- NOTE | 2024-08-10 09:58 | P.PN ---
Date of Service: 08/10/24 Subjective stool less liquid, pt c/o "bone pain" Review of Systems 10-point ROS is otherwise unremarkable General: Weakness, Malaise Eyes: Unremarkable ENT: Unremarkable Respiratory: Cough, As per HPI Cardiovascular: Unremarkable Gastrointestinal: Diarrhea, As per HPI Genitourinary: Unremarkable Musculoskeletal: pain Integumentary: Unremarkable Neurological: Weakness Lymphatics: Unremarkable Physical Examination - Vital Signs Blood Pressure: afebrile - Physical Exam General: no O2 requirement, In no apparent distress, Oriented x3 HEENT: Atraumatic, Normocephalic Neck: Supple Respiratory: Normal air movement, Other, cough improving Cardiovascular: Regular rate/rhythm, Normal S1 S2 Capillary refill: <2 Seconds Gastrointestinal: Non-distended, Hyperactive Musculoskeletal: No clubbing Integumentary: No rashes Neurological: Normal speech, Normal tone, Normal affect Lymphatics: No axilla or inguinal lymphadenopathy External genitalia: Deferred Rectal: Deferred - Studies Laboratory Data (last 24 hrs) 08/08/24 08/08/24 08/08/24 11:35 11:35 11:35 WBC 7.80 Hgb 13.6 Hct 40.9 Plt Count 131 L PT 11.8 INR 1.13 Sodium 134 L Potassium 3.3 L BUN 68 H Creatinine 3.65 H Glucose 88 Magnesium 2.0 Total Bilirubin 0.6 AST 31 ALT 33 Alkaline Phosphatase 83 Lipase 86 H Assessment and Plan Influenza COVID Cystitis Anorexia with volume depletion with WEN Elevated cardiac enzymes likely secondary to WEN/NSTEMI Gentle hydration (Creatinine improved with gentle hyration from 3.65 to 2.72, GFR 11 to 16.) -> today 2.22 and 21 Serial enzymes , mildly increased over admission to 104 at 2145, this morning 16 4.8 (NSTEMI likely second to COVID/WEN), no chest pain Tamiflu IV antibiotics (flagyl as pt was on this outpt for a few days before admission) Antivirals Reassessment of kidney function Symptom management/pain control Hypertension Hydralazine 25 mg p.o. 3 times daily Nebivolol 10 mg p.o. daily Monitor and trend Hyperlipidemia Atorvastatin 40 mg p.o. nightly (will decrease 2nd to creatinine) VTE/GI prophylaxis (heparin) Discharge Plan: Home Plan to discharge in: 24 Hours - Advance Directives Does patient have a Living Will: No Does patient have a Durable POA for Healthcare: No - Code Status/Comfort Care Code Status Assessed: Yes (Full)
--- NOTE | 2024-08-10 11:57 | EKG ---
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
[2024-08-10] MEDS: METOPROLOL TARTRATE 5 MG/5 ML INJ IV STA (13:55)
--- NOTE | 2024-08-10 14:04 | P.PN ---
Date of Service: 08/10/24 Subjective stool less liquid, pt c/o "bone pain" 1350 Pt up to bathroom, c/o lightheadedness, tele shows a.fib with RVR. No history. Pt is on heparin 5000u sq Q12h and a reduced dose of atorvastatin as she is currently taking Paxlovid. Will consult cardiology.
[2024-08-10] MEDS: METOPROLOL TARTRATE 5 MG/5 ML INJ IV ONE ×2 (14:22→14:35)
--- NOTE | 2024-08-10 18:27 | P.PN ---
Date of Service: 08/10/24 Subjective stool less liquid, pt c/o "bone pain" 1350 Pt up to bathroom, c/o lightheadedness, tele shows a.fib with RVR. No history. Pt is on heparin 5000u sq Q12h and a reduced dose of atorvastatin as she is currently taking Paxlovid. Will consult cardiology. 1415 Dr. Pimentel consulted 1500 Pt converted to NSR at rate of 62
--- NOTE | 2024-08-10 20:30 | P.PN ---
Date of Service: 08/10/24 Vital Signs Temp Pulse Resp BP Pulse Ox 98.1 F 75 14 113/56 L 96 08/10/24 16:00 08/10/24 16:00 08/10/24 16:00 08/10/24 16:00 08/10/24 16:00 Medications Acetaminophen (Acetaminophen 500 Mg Tab) 500 mg PO Q4HP PRN PRN Reason: TEMP > 101' F Last Admin: 08/10/24 03:29 Dose: 500 mg Apixaban (Apixaban 2.5 Mg Tablet) 2.5 mg PO BID [facility] Aspirin (Aspirin 81 Mg Chewable Tablet) 81 mg PO DAILY [facility] Last Admin: 08/10/24 09:53 Dose: 81 mg Hydralazine HCl (Hydralazine Hcl 25 Mg Tablet) 25 mg PO TID PRN PRN Reason: Goal to achieve SBP <160 Sodium Chloride (Sodium Chloride 0.45%) 1,000 mls @ 75 mls/hr IV .[id number] [facility] Last Admin: 08/10/24 10:33 Dose: 1,000 mls Metoprolol Tartrate (Metoprolol Tar 25 Mg Tab) 25 mg PO BID [facility] Oseltamivir Phosphate (Oseltamivir 30 Mg Cap) 30 mg PO Q24H [facility] Stop: 08/12/24 21:01 Last Admin: 08/09/24 21:37 Dose: 30 mg Promethazine HCl (Promethazine 25 Mg Tablet) 25 mg PO Q6HP PRN PRN Reason: NAUSEA / VOMITING Microbiology Results 08/08/24 14:36 Blood - Blood Aerobic Blood Culture - Preliminary No growth in 24 hours. 08/08/24 14:36 Blood - Blood Anaerobic Blood Culture - Preliminary No growth in 24 hours. 08/08/24 14:29 Blood - Blood Aerobic Blood Culture - Preliminary No growth in 24 hours. 08/08/24 14:29 Blood - Blood Anaerobic Blood Culture - Preliminary No growth in 24 hours. 08/08/24 11:40 Nasopharnyx Influenza Type A Antigen Screen - Final Assessment/ Plan: Nephrology No dyspnea No chest pain No acute events overnight Vitals, medications, blood work and imaging reviewed in the chart General: In no apparent distress, Oriented x3, Cooperative HEENT: Atraumatic Neck: Supple Respiratory: Clear to auscultation bilaterally, Normal air movement Cardiovascular: No edema, Regular rate/rhythm Gastrointestinal: Soft and benign, Non-distended Musculoskeletal: No clubbing, No contractures Integumentary: No rashes, No cyanosis Neurological: Normal speech Laboratory Data (last 24 hrs) 08/08/24 08/08/24 08/08/24 11:35 11:35 11:35 WBC 7.80 Hgb 13.6 Hct 40.9 Plt Count 131 L PT 11.8 INR 1.13 Sodium 134 L Potassium 3.3 L BUN 68 H Creatinine 3.65 H Glucose 88 Magnesium 2.0 Total Bilirubin 0.6 AST 31 ALT 33 Alkaline Phosphatase 83 Lipase 86 H 08/08/24 08/08/24 08/08/24 10:36 10:36 10:36 WBC Cancelled Hgb Cancelled Hct Cancelled Plt Count Cancelled PT Cancelled INR Cancelled Sodium Cancelled Potassium Cancelled BUN Cancelled Creatinine Cancelled Glucose Cancelled Magnesium Cancelled Total Bilirubin Cancelled AST Cancelled ALT Cancelled Alkaline Phosphatase Cancelled Lipase Cancelled Imagings Data: EXAMINATION: ONE VIEW CHEST XR CLINICAL INDICATION: CHEST PAIN TECHNIQUE: Frontal chest projection is submitted. Examination is limited by patient positioning and technique. COMPARISON: 02/29/2024 FINDINGS: The lungs are well inflated and clear. The heart is upper limit of normal in size. No displaced fractures identified. Right total shoulder reverse arthroplasty. IMPRESSION: No acute intrathoracic abnormalities. EXAMINATION: CT ABDOMEN AND PELVIS WITHOUT CONTRAST CLINICAL INDICATION: ABD PAIN TECHNIQUE: CT abdomen and pelvis was performed, without IV contrast, as per department protocol. Axial, sagittal and coronal reconstructions were obtained. One or more of the following dose reduction techniques were used: Automated exposure control, adjustment of the mA and kV ac cording to the patient size, and iterative reconstruction. Unless otherwise specified, incidental findings do not require dedicated imaging follow-up. COMPARISON: 12/08/2023 FINDINGS: The lack of intravenous contrast limits the sensitivity of this exam for evaluation of solid visceral organs, vascular structures, and retroperitoneum. LOWER CHEST: The visualized lung bases are clear. Small hiatal hernia. LIVER:Normal in size and contour. No focal lesion. Grossly unremarkable gallbladder. SPLEEN: Normal size. No focal lesion. PANCREAS: No mass, ductal dilation, or marcelino-pancreatic fluid. ADRENALS: Normal; no mass. KIDNEYS AND URETERS: Normal size and contour. No hydronephrosis. URINARY BLADDER: Small air bubbles noted. GASTROINTESTINAL TRACT: No evidence of bowel obstruction, significant free fluid, free air or abscess. APPENDIX: Appendix not visualized, but no inflammatory changes in region of appendix. LYMPH NODES: No lymphadenopathy. MUSCULOSKELETAL: Mild multilevel spinal degenerative changes. ADDITIONAL FINDINGS: Aortoiliac atherosclerosis. IMPRESSION: Small air bubbles in the urinary bladder suggests cystitis or recent instrumentation. Elsewhere, no acute finding is seen. Conclusions/Impression: Stage II WEN in the setting of hypovolemia CKD IV with Proteinuria -No NSAIDs -Continue IVF to 1/2NS Hypokalemia -Replete as ordered Hypophosphatemia -Replete as ordered HTN with CKD -Continue Hydralazine -Continue Bystolic Hypoalbuminemia -Encourage nutrition Anemia in chronic illness -Monitor H&H Covid Flu A -Continue Paxlovid and Tamiflu Hospitalist note reviewed
[2024-08-10] MEDS ORDERED: METOPROLOL TAR 50 MG TAB PO SCH (21:00)
[2024-08-10] MEDS: APIXABAN 2.5 MG TABLET PO SCH (21:22)
[2024-08-10] MEDS: METOPROLOL TAR 25 MG TAB PO SCH (21:22)
[2024-08-10] MEDS: POTASS/SODIUM PHOSPHATE 1 PKT POWD.PACK PO ONE (21:23)
[2024-08-11 01:30] VITALS: BMI 30.8
[2024-08-11 02:28] LABS: UR PROTEIN 160.7 mg/dL (<11.9); Urine Protein/Creatinine Ratio 1.71 ratio (<0.15)
[2024-08-11 02:29] LABS: Specific Gravity 1.015 (1.005-1.030); Sqamous Epithelial <5 /HPF (None Seen); Urine Bacteria None Seen /HPF (<20); Urine Bilirubin NEGATIVE (Negative); Urine Blood Trace (Negative); Urine Clarity Turbid (Clear); Urine Color Yellow (Yellow); Urine Culture Reflex Order REFLEXED; Urine Glucose NEGATIVE (Negative); Urine Ketones NEGATIVE (Negative); Urine Micro Reflex YN NO BILL MICROSCOPIC; Urine Mucus Slight /HPF (None Seen); Urine Nitrite NEGATIVE (Negative); Urine Protein 2+ (Negative); Urine Urobilinogen Normal (Normal); Urine WBC 20-50 /HPF (<5); Urine Yeast (Budding) Trace /HPF (None Seen)
[2024-08-11 03:14] LABS: MA/CREAT RATIO 1170.2 (< 30.0)
[2024-08-11 05:15] LABS: Absolute Eosinophils 0.5 K/uL (0-0.5); Absolute Lymphocytes (CBC) 1.5 K/uL (0.7-4.9); Absolute Monocytes 0.7 K/uL (0.1-1.3); Absolute Neutrophil 6.6 K/uL (1.8-8.0); Basophils % 0.4 % (0-1.3); Eosinophils % 5.3 % (0-4.4); Hematocrit 31.3 % (36.0-45.0); Hemoglobin 10.6 g/dL (12.0-15.0); Lymphocytes % 16.5 % (15.3-44.8); MCH 32.4 pg (27.0-35.0); MCV 95.3 fL (80-100); Monocytes % 7.5 % (3.3-12.3); Neutrophils % 70.3 % (41.7-73.7); Platelets 108 thou/uL (152-406); RBC Red Blood Cell Count 3.28 M/uL (3.86-4.86); Red Cell Distribution Width 13.4 % (12.1-15.2)
[2024-08-11 05:36] LABS: Albumin 2.4 g/dL (3.4-5.0); Albumin/Globulin Ratio 0.7 (1.1-1.8); Anion Gap 9.7 mEq/L (5.0-15.0); Bilirubin Total 0.6 mg/dL (0.2-1.0); Globulin 3.3 g/dL (2.3-3.5); Phosphorus 2.4 mg/dL (2.5-4.9); Potassium 4.7 mEq/L (3.5-5.1); Protein, Total 5.7 g/dL (6.4-8.2)
[2024-08-11] MEDS: MAGNESIUM SULFATE 1 gm IVPB 1 GM/100 ML BAG IV ONE (08:00)
[2024-08-11] MEDS: POTASS/SODIUM PHOSPHATE 1 PKT POWD.PACK PO SCH (09:00)
[2024-08-11] MEDS: HYDRALAZINE HCL 25 MG TABLET PO PRN (10:32)
[2024-08-11] MEDS: DIPHENOX/ATROP SULF 1 TAB PO ONE ×2 (18:30→22:25)
--- NOTE | 2024-08-11 20:01 | P.PN ---
Date of Service: 08/11/24 Subjective no overnight events pt in NSR at 60bpM ar 630 am Review of Systems 10-point ROS is otherwise unremarkable General: Weakness, Malaise Eyes: Unremarkable ENT: Unremarkable Respiratory: Cough, As per HPI Cardiovascular: Unremarkable Gastrointestinal: Diarrhea, As per HPI Genitourinary: Unremarkable Musculoskeletal: pain Integumentary: Unremarkable Neurological: Weakness Lymphatics: Unremarkable Physical Examination - Vital Signs Blood Pressure: afebrile, HR 60bpm - Physical Exam General: no O2 requirement, In no apparent distress, Oriented x3 HEENT: Atraumatic, Normocephalic Neck: Supple Respiratory: Normal air movement, Other, cough improving Cardiovascular: Regular rate/rhythm Capillary refill: <2 Seconds Gastrointestinal: Non-distended, Hyperactive Musculoskeletal: No clubbing Integumentary: No rashes Neurological: Normal speech, Normal tone, Normal affect Lymphatics: No axilla or inguinal lymphadenopathy External genitalia: Deferred Rectal: Deferred - Studies Laboratory Data (last 24 hrs) 08/08/24 08/08/24 08/08/24 11:35 11:35 11:35 WBC 7.80 Hgb 13.6 Hct 40.9 Plt Count 131 L PT 11.8 INR 1.13 Sodium 134 L Potassium 3.3 L BUN 68 H Creatinine 3.65 H Glucose 88 Magnesium 2.0 Total Bilirubin 0.6 AST 31 ALT 33 Alkaline Phosphatase 83 Lipase 86 H Assessment and Plan Influenza COVID Cystitis Anorexia with volume depletion with WEN Elevated cardiac enzymes likely secondary to WEN/NSTEMI Gentle hydration (Creatinine improved with gentle hydration from 3.65 to 2.72, GFR 11 to 16.) -> 2.22 and 21 Serial enzymes , mildly increased over admission to 104 at 2145 -> 164.8 (NSTEMI likely second to COVID/WEN), no chest pain Tamiflu IV antibiotics (flagyl as pt was on this outpt for a few days before admission) Antivirals Reassessment of kidney function Symptom management/pain control Hypertension Hydralazine 25 mg p.o. 3 times daily Nebivolol 10 mg p.o. daily Monitor and trend Hyperlipidemia Atorvastatin 40 mg p.o. nightly (will decrease 2nd to creatinine) A.fib with RVR Pt with afib with rate in 150s yesterday afternoon. Metoprolol 5mg iv x 3 successfully converted pt. Continued Metoprolol 25 mg BID, started Eliquis 2.5 mg po bid, stopped atorvastatin, stopped heparin, stopped paxlovid. Consulted cardiology Cardio recommends ECHO, continuation of BB and eliquis. Will follow outpt and if ECHO not done prior to discharge as it is Wednesday afternoon, will do ECHO outpatient VTE/GI prophylaxis (heparin) Discharge Plan: Home Plan to discharge in: 24 Hours - Advance Directives Does patient have a Living Will: No Does patient have a Durable POA for Healthcare: No - Code Status/Comfort Care Code Status Assessed: Yes (Full)
--- NOTE | 2024-08-11 22:32 | P.PN ---
Date of Service: 08/11/24 Vital Signs Temp Pulse Resp BP Pulse Ox 98.4 F 62 18 162/52 H 95 08/11/24 20:00 08/11/24 21:26 08/11/24 20:00 08/11/24 21:26 08/11/24 20:00 Medications Acetaminophen (Acetaminophen 500 Mg Tab) 500 mg PO Q4HP PRN PRN Reason: TEMP > 101' F Last Admin: 08/10/24 03:29 Dose: 500 mg Apixaban (Apixaban 2.5 Mg Tablet) 2.5 mg PO BID [facility] Last Admin: 08/11/24 21:26 Dose: 2.5 mg Aspirin (Aspirin 81 Mg Chewable Tablet) 81 mg PO DAILY [facility] Last Admin: 08/11/24 10:10 Dose: 81 mg Hydralazine HCl (Hydralazine Hcl 25 Mg Tablet) 25 mg PO TID PRN PRN Reason: Goal to achieve SBP <160 Last Admin: 08/11/24 10:32 Dose: 25 mg Sodium Chloride (Sodium Chloride 0.45%) 1,000 mls @ 75 mls/hr IV .[id number] [facility] Last Admin: 08/11/24 01:40 Dose: 1,000 mls Metoprolol Tartrate (Metoprolol Tar 25 Mg Tab) 25 mg PO BID [facility] Last Admin: 08/11/24 21:26 Dose: 25 mg Oseltamivir Phosphate (Oseltamivir 30 Mg Cap) 30 mg PO Q24H [facility] Stop: 08/12/24 21:01 Last Admin: 08/11/24 21:26 Dose: 30 mg Promethazine HCl (Promethazine 25 Mg Tablet) 25 mg PO Q6HP PRN PRN Reason: NAUSEA / VOMITING Microbiology Results 08/08/24 14:36 Blood - Blood Aerobic Blood Culture - Preliminary No growth in 24 hours. 08/08/24 14:36 Blood - Blood Anaerobic Blood Culture - Preliminary No growth in 24 hours. 08/08/24 14:29 Blood - Blood Aerobic Blood Culture - Preliminary No growth in 24 hours. 08/08/24 14:29 Blood - Blood Anaerobic Blood Culture - Preliminary No growth in 24 hours. 08/08/24 11:40 Nasopharnyx Influenza Type A Antigen Screen - Final Assessment/ Plan: Nephrology No dyspnea No chest pain Fatigue and weakness No acute events overnight Vitals, medications, blood work and imaging reviewed in the chart General: In no apparent distress, Oriented x3, Cooperative HEENT: Atraumatic Neck: Supple Respiratory: Clear to auscultation bilaterally, Normal air movement Cardiovascular: No edema, Regular rate/rhythm Gastrointestinal: Soft and benign, Non-distended Musculoskeletal: No clubbing, No contractures Integumentary: No rashes, No cyanosis Neurological: Normal speech Laboratory Data (last 24 hrs) 08/08/24 08/08/24 08/08/24 11:35 11:35 11:35 WBC 7.80 Hgb 13.6 Hct 40.9 Plt Count 131 L PT 11.8 INR 1.13 Sodium 134 L Potassium 3.3 L BUN 68 H Creatinine 3.65 H Glucose 88 Magnesium 2.0 Total Bilirubin 0.6 AST 31 ALT 33 Alkaline Phosphatase 83 Lipase 86 H 08/08/24 08/08/24 08/08/24 10:36 10:36 10:36 WBC Cancelled Hgb Cancelled Hct Cancelled Plt Count Cancelled PT Cancelled INR Cancelled Sodium Cancelled Potassium Cancelled BUN Cancelled Creatinine Cancelled Glucose Cancelled Magnesium Cancelled Total Bilirubin Cancelled AST Cancelled ALT Cancelled Alkaline Phosphatase Cancelled Lipase Cancelled Imagings Data: EXAMINATION: ONE VIEW CHEST XR CLINICAL INDICATION: CHEST PAIN TECHNIQUE: Frontal chest projection is submitted. Examination is limited by patient positioning and technique. COMPARISON: 02/29/2024 FINDINGS: The lungs are well inflated and clear. The heart is upper limit of normal in size. No displaced fractures identified. Right total shoulder reverse arthroplasty. IMPRESSION: No acute intrathoracic abnormalities. EXAMINATION: CT ABDOMEN AND PELVIS WITHOUT CONTRAST CLINICAL INDICATION: ABD PAIN TECHNIQUE: CT abdomen and pelvis was performed, without IV contrast, as per department protocol. Axial, sagittal and coronal reconstructions were obtained. One or more of the following dose reduction techniques were used: Automated exposure control, adjustment of the mA and kV according to the patient size, and iterative reconstruction. Unless otherwise specified, incidental findings do not require dedicated imaging follow-up. COMPARISON: 12/08/2023 FINDINGS: The lack of intravenous contrast limits the sensitivity of this exam for evaluation of solid visceral organs, vascular structures, and retroperitoneum. LOWER CHEST: The visualized lung bases are clear. Small hiatal hernia. LIVER:Normal in size and contour. No focal lesion. Grossly unremarkable gallbladder. SPLEEN: Normal size. No focal lesion. PANCREAS: No mass, ductal dilation, or marcelino-pancreatic fluid. ADRENALS: Normal; no mass. KIDNEYS AND URETERS: Normal size and contour. No hydronephrosis. URINARY BLADDER: Small air bubbles noted. GASTROINTESTINAL TRACT: No evidence of bowel obstruction, significant free fluid, free air or abscess. APPENDIX: Appendix not visualized, but no inflammatory changes in region of appendix. LYMPH NODES: No lymphadenopathy. MUSCULOSKELETAL: Mild multilevel spinal degenerative changes. ADDITIONAL FINDINGS: Aortoiliac atherosclerosis. IMPRESSION: Small air bubbles in the urinary bladder suggests cystitis or recent instrumentation. Elsewhere, no acute finding is seen. Conclusions/Impression: Stage II WEN in the setting of hypovolemia CKD IV with Proteinuria -No NSAIDs -Continue IVF to 1/2NS Hypokalemia -Replete as ordered Hypophosphatemia -Replete as ordered HTN with CKD -Continue Hydralazine -Continue Bystolic Hypoalbuminemia -Encourage nutrition Anemia in chronic illness -Monitor H&H Covid Flu A -Continue Paxlovid and Tamiflu Hospitalist note reviewed
[2024-08-12 01:10] VITALS: O2SAT 97
[2024-08-12 08:06] LABS: Absolute Basophils 0.1 K/uL (0-0.5); Absolute Eosinophils 0.6 K/uL (0-0.5); Absolute Lymphocytes (CBC) 1.6 K/uL (0.7-4.9); Absolute Monocytes 0.8 K/uL (0.1-1.3); Absolute Neutrophil 5.2 K/uL (1.8-8.0); Basophils % 0.8 % (0-1.3); Eosinophils % 7.6 % (0-4.4); Hematocrit 36.3 % (36.0-45.0); Hemoglobin 12.2 g/dL (12.0-15.0); MCH 32.2 pg (27.0-35.0); MCHC 33.7 g/dL (32.0-36.0); MCV 95.6 fL (80-100); Monocytes % 9.3 % (3.3-12.3); Neutrophils % 63.3 % (41.7-73.7); Nucleated Red Blood Cells % 0.2 % (0-0); Platelets 157 thou/uL (152-406); RBC Red Blood Cell Count 3.79 M/uL (3.86-4.86); Red Cell Distribution Width 13.3 % (12.1-15.2)
[2024-08-12 08:18] LABS: Albumin 2.7 g/dL (3.4-5.0); Albumin/Globulin Ratio 0.7 (1.1-1.8); Anion Gap 12.6 mEq/L (5.0-15.0); Bilirubin Total 0.8 mg/dL (0.2-1.0); Globulin 3.9 g/dL (2.3-3.5); Potassium 4.6 mEq/L (3.5-5.1); Protein, Total 6.6 g/dL (6.4-8.2)
--- NOTE | 2024-08-12 09:55 | P.DS ---
Admission Date: 08/08/24 Discharge Date: 08/12/24 Disposition: ROUTINE DISCHARGE Discharge Condition: GOOD Reason for Admission: Influenza A, COVID upper respiratory infection, cystitis with diarrhea Consultations: Dr. Pimentel/Jas Samuels Brief History of Present Illness: Ms. Cooney is a 89-year-old female with a past medical history of diverticulitis and hypertension. She presented to the emergency department with a complaint of nausea, diarrhea, and significant cough over the past 5 days. Ms. Cooney appears young for stated age and is alert, oriented x 3, and ambulatory. Her grandson lives with her but has no symptoms of infection. On evaluation in the emergency department, it was noted that Ms. Cooney is positive for flu A and COVID. Her chest x-ray is clear but at bedside she has a very harsh, wet sounding cough. She has not been eating and has had multiple episodes of diarrhea. She denies melena or hematochezia. In the medication reconciliation evaluation, is noted she has been on Flagyl and doxycycline from her PCP since 08/07/2024 and 08/04/2024 respectively. Her vital signs are stable and her oxygen saturation is 94% on room air. Laboratory analysis however shows acute kidney injury with a creatinine of 3.65, GFR of 11. In the past year she has had a creatinine elevation to 2 but this would be the highest in her history. Today she has CT evidence of air bubbles in the bladder indicating cystitis. We will admit her for gentle hydration, reevaluation of her kidney function, and management of her symptoms. She does have a mild troponin elevation of 89.5 however denies chest pain and that is likely related to her elevated creatinine/low GFR. We will obtain serial enzymes. Ms. Cooney was started on Tamiflu in the emergency department, Paxlovid has been ordered but held as her renal function is too poor for it to offer benefit over risk. Hospital Course: Ms. Cooney has had improved symptoms. She is more well-hydrated and her kidney function is back to baseline. She does continue to have loose stools but states she notes improvement. Over the course of her hospitalization she did have a brief episode of A-fib with RVR and on exam she has a loud systolic murmur so echo was performed. She was started on metoprolol and given Eliquis 2.5 mg p.o. twice daily. Cardiology recommends maintenance of these medications and she will need follow-up in their office in 1 to 2 weeks. Vital Signs/Physical Exam: Temp Pulse Resp BP Pulse Ox 98.3 F 74 18 168/55 H 99 08/12/24 04:00 08/12/24 08:45 08/12/24 04:00 08/12/24 04:00 08/12/24 04:00 General: Alert, In no apparent distress, Oriented x3 HEENT: Atraumatic, Normocephalic Neck: Supple Respiratory: Normal air movement, Crackles/rales Cardiovascular: Regular rate/rhythm, Systolic murmur Capillary refill: <2 Seconds Gastrointestinal: Soft and benign Musculoskeletal: No clubbing, No swelling Integumentary: No rashes Neurological: Normal speech, Normal tone, Normal affect Lymphatics: No axilla or inguinal lymphadenopathy External genitalia: Deferred Rectal: Deferred Laboratory Data at Discharge: WBC 8.30 thou/uL (4.3-10.9) 08/12/24 07:10 Hgb 12.2 g/dL (12.0-15.0) D 08/12/24 07:10 Hct 36.3 % (36.0-45.0) 08/12/24 07:10 Plt Count 157 thou/uL (152-406) D 08/12/24 07:10 PT 11.8 SECONDS (9.4-12.5) 08/08/24 11:35 INR 1.13 08/08/24 11:35 Sodium 138 mEq/L (136-145) 08/12/24 07:10 Potassium 4.6 mEq/L (3.5-5.1) 08/12/24 07:10 BUN 28 mg/dL (7-18) H 08/12/24 07:10 Creatinine 1.79 mg/dL (0.55-1.02) H 08/12/24 07:10 Glucose 86 mg/dL (74-106) 08/12/24 07:10 Uric Acid 8.7 mg/dL (2.6-6.0) H 08/10/24 04:23 Phosphorus 2.4 mg/dL (2.5-4.9) L 08/11/24 04:48 Magnesium 1.9 mg/dL (1.6-2.4) 08/11/24 04:48 Total Bilirubin 0.8 mg/dL (0.2-1.0) 08/12/24 07:10 AST 33 U/L (15-37) 08/12/24 07:10 ALT 28 U/L (13-56) 08/12/24 07:10 Alkaline Phosphatase 65 U/L (45-117) 08/12/24 07:10 Triglycerides 141 mg/dL (<150) 08/09/24 05:16 Cholesterol 76 mg/dL (<200) 08/09/24 05:16 HDL Cholesterol 33 mg/dL (40-60) L 08/09/24 05:16 Cholesterol/HDL Ratio 2.30 08/09/24 05:16 Lipase 86 U/L (13-75) H 08/08/24 11:35 Home Medications: Aspirin [Aspirin EC 81 MG] 162 mg PO DAILY #60 tab 12/11/23 Atorvastatin Calcium [Lipitor*] 40 mg PO BEDTIME #30 tab 12/11/23 Chlorthalidone [Hygroton 25mg Tab*] 12.5 mg PO DAILY 30 Days #30 tab 12/11/23 NIFEdipine [Nifedipine ER] 60 mg PO DAILY 08/09/24 Apixaban [Eliquis *] 2.5 mg PO BID #120 tab 08/12/24 Aspirin Chewable [Aspirin Chewable*] 81 mg PO DAILY #1 bot 08/12/24 Metoprolol Tartrate [Lopressor*] 25 mg PO BID #120 tab 08/12/24 Mometasone/Formoterol [Dulera 100 Mcg/5 Mcg Inhaler] 2 puff IH BID inhaler 08/12/24 Promethazine Tab [Phenergan*] 25 mg PO Q6HP PRN #24 tab 08/12/24 New Medications: Aspirin Chewable [Aspirin Chewable*] 81 mg PO DAILY #1 bot Apixaban [Eliquis *] 2.5 mg PO BID #120 tab Metoprolol Tartrate [Lopressor*] 25 mg PO BID #120 tab Promethazine Tab [Phenergan*] 25 mg PO Q6HP PRN #24 tab PRN Reason: Nausea / Vomiting Physician Discharge Instructions: Ms. Cooney has had improved symptoms. She is more well-hydrated and her kidney function is back to baseline. She does continue to have loose stools but states she notes improvement. Over the course of her hospitalization she did have a brief episode of A-fib with RVR and on exam she has a loud systolic murmur so echo was performed. She was started on metoprolol and given Eliquis 2.5 mg p.o. twice daily. Cardiology recommends maintenance of these medications and she will need follow-up in their office in 1 to 2 weeks Diet: AHA Activity: Fall precautions Followup: Lynn Mcmullen MD [Primary Care Provider] - Laurent Mark MD [ACTIVE - CAN ADMIT] -
[2024-08-12 10:02] LABS: Blood Morphology Comment NOT SEEN (NOT SEEN); Platelet Estimate ADEQ; Platelets Clumped FEW; White Blood Cell Scan OK (OK)
--- NOTE | 2024-08-12 11:11 | PN ---
Date of Progress Note: 08/12/2024 Subjective: The patient is alert, awake. Denies any discomfort currently. She states she is breath ing comfortably, looking forward to going home. Blood pressure has been running on the higher side. There were couple of readings in the 110 range, but most of them between 140 to last blood pressure quite high at 197/97. O2 sats are 97% on room air. Objective: Vital Signs: Stable except for blood pressure high between 140 to 190. Lungs: Clear. Abdomen: Soft. Extremities: Reveal trace edema on ankles. Laboratory Data: WBC count of 8.3, hemoglobin 12.2, hematocrit 36.3. Last creatinine was 1.79, impr jamie from 2.07 from the prior day. Sodium 138, potassium 4.6, chloride 109, bicarb is 21, BUN and cr eatinine are 28/1.79. Assessment And Plan: The patient with chronic kidney disease. Follows with Dr. Mcmullen. Clinicall y looks well. Currently denies any headache, nausea, vomiting. Blood pressure is slightly elevated. Discussed with the patient. Advised her to make sure to follow up with Dr. Mcmullen, her primary n ephrologist. Start amlodipine low dose at 2.5 mg, stop if blood pressure less than 110. 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 Overall clini nettie looks stable. 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 Will need evaluat ion for residual kidney function worsening her CKD and management of same. The patient knows to foll ow up with Dr. Mcmullen. /RONAN Voice ID: [id number] Report ID: [id number]
[2024-08-12] MEDS: HYDRALAZINE HCL 10 MG TABLET PO SCH (11:42)
[2024-08-12 13:24] VITALS: BP 149/72
[2024-08-12 14:17] VITALS: TEMP 97.8
[2024-08-13] MEDS ORDERED: AMLODIPINE 2.5 MG TAB PO SCH (09:00)
--- NOTE | 2024-08-14 07:23 | ECHO ---
HEIGHT: 5 ft 0 in WEIGHT: 158 lb 0 oz DATE OF STUDY: 08/10/[address]: Marquis Hurtado DO 2-DIMENSIONAL: YES M.MODE: YES DOPPLER: YES COLOR FLOW: YES TDS: NO PORTABLE: YES DEFINITY: NO BUBBLE STUDY: NO DIAGNOSIS: NSTEMI CARDIAC HISTORY: CATHERIZATION: NO SURGERY: NO PROSTHETIC VALVE: NO PACEMAKER: NO MEASUREMENTS (cm) DIASTOLIC (NORMALS) SYSTOLIC (NORMALS) IVSd 1.2 (0.6-1.2) LA Diam 4.2 (1.9-4.0) LVEF 59% LVIDd 3.2 (3.5-5.7) LVIDs 2.2 (2.0-3.5) %FS 30% LVPWd 1.2 (0.6-1.2) Ao Diam 2.6 (2.0-3.7) 2 DIMENSIONAL ASSESSMENT: RIGHT ATRIUM: NORMAL LEFT ATRIUM: ENLARGED RIGHT VENTRICLE: NORMAL LEFT VENTRICLE: NORMAL TRICUSPID VALVE: MILD TRICUSPID REGURGITATION MITRAL VALVE: MITRAL ANNULAR CALCIFICATION PULMONIC VALVE: NORMAL AORTIC VALVE: MILD AORTIC INSUFFICIENCY PERICARDIAL EFFUSION: NONE AORTIC ROOT: NORMAL LEFT VENTRICULAR WALL MOTION: NORMAL. DOPPLER/COLOR FLOW: SEE BELOW. COMMENTS: 1. NORMAL LEFT VENTRICULAR EJECTION FRACTION 50-60% WITH ATRIAL FIBRILLATION. 2. MODERATE MITRAL ANNULAR CALCIFICATION. 3. LEFT ATRIAL ENLARGEMENT. 4. MILD TRICUSPID REGURGITATION. 5. MILD AORTIC INSUFFICIENCY TECHNOLOGIST: DONNA CAMPBELL
[2024-08-14] MEDS ORDERED: ATORVASTATIN 40 MG TAB PO SCH (21:00)
== END 2024-08-12 14:43 | disposition home or self-care (01) | DRG 177 ==
LOC: ER 10:27 → ERHOLD 15:11 → 2ND 15:58
PROVIDERS: ADMIT Internal Medicine; ATTEND Internal Medicine
DX: U07.1 COVID-19 (principal); I21.A1 Myocardial infarction type 2; N17.9 Acute kidney failure, unspecified; N18.4 Chronic kidney disease, stage 4 (severe); I12.9 Hypertensive chronic kidney disease with stage 1 through stage 4 chronic kidney disease, or unspecified chronic kidney disease; D63.1 Anemia in chronic kidney disease; E78.5 Hyperlipidemia, unspecified; I48.91 Unspecified atrial fibrillation; E86.9 Volume depletion, unspecified; E83.39 Other disorders of phosphorus metabolism; E87.6 Hypokalemia; E88.09 Other disorders of plasma-protein metabolism, not elsewhere classified; N30.90 Cystitis, unspecified without hematuria; J09.X2 Influenza due to identified novel influenza A virus with other respiratory manifestations; Z23 Encounter for immunization; Z79.82 Long term (current) use of aspirin; Z90.49 Acquired absence of other specified parts of digestive tract; Z79.899 Other long term (current) drug therapy; Z96.611 Presence of right artificial shoulder joint
CPT/HCPCS: 36415; 71045; 74176; 80048; 80053; 80061; 80076; 81001; 82043; 82570; 83690; 83735; 83880; 84100; 84132; 84156; 84484; 84550; 85025; 85610; 87040; 87086; 87088; 87804; 87811; 93005; 93306; 94640; 96361; 96365; 96375; 99285; J0696; J1644; J2405; J3475; J3535; J7030; J7050; J7613; J7614; J7644; J8499

== ENCOUNTER 2025-03-11 08:17 | Emergency (ER) | payer OTHER ==
[2025-03-11] MEDS ORDERED: ONDANSETRON 4 MG/2 ML VIAL ONE (08:51)
[2025-03-11 09:41] LABS: Absolute Lymphocytes (CBC) 1.0 K/uL (0.7-4.9); Hematocrit 35.4 % (36.0-45.0); Hemoglobin 11.9 g/dL (12.0-15.0); MCH 33.1 pg (27.0-35.0); MCHC 33.7 g/dL (32.0-36.0); MCV 98.2 fL (80-100); MPV 12.2 fL (7.6-11.3); Nucleated RBC Absolute Count 0.0 (0-0); Nucleated Red Blood Cells % 0.0 % (0-0); RBC Red Blood Cell Count 3.60 M/uL (3.86-4.86); White Blood Count 9.80 thou/uL (4.3-10.9)
[2025-03-11 09:46] LABS: PT Prothrombin Time 13.4 SECONDS (10-13.0); PTT, Activated Partial Thromb 26.7 SECONDS (27.2-37.4); Protime INR 1.19
[2025-03-11 10:36] LABS: Anion Gap 9.3 mEq/L (5.0-15.0); BUN Blood Urea Nitrogen 44.0 mg/dL (7-18); Glucose Level 96.0 mg/dL (74-106); Potassium 4.3 mEq/L (3.5-5.1)
--- NOTE | 2025-03-11 11:24 | RAD REPORT ---
EXAMINATION: Head C Spine Mpr Wo Con CLINICAL INDICATION: Female, 89 years old. fall, head injury TECHNIQUE: Axial CT images from the skull base to the vertex without intravenous contrast. Axial CT i mages through the cervical spine were obtained without intravenous contrast. Sagittal and coronal reformatted images were created from the data set. Coronal and sagittal reformatted images were creat ed from the data set. One or more of the following dose reduction techniques were used: Automated exposure control, adjustment of the mA and/or kV according to patient size, and/or iterative reconstr uction. Unless otherwise specified, incidental findings do not require dedicated imaging follow-up. [id number]. COMPARISON: No prior exams FINDINGS: Head: INTRACRANIAL: No acute intracranial hemorrhage. No acute large vascular territory infarct. No hydroce phalus. No mass effect or midline shift. No significant white matter disease. VASCULATURE: No visualized abnormalities in the arteries or dural venous sinuses. SCALP/SKULL: No calvarial fracture identified. No acute soft tissue abnormality. SINUSES: The visualized paranasal sinuses are mostly clear. No significant mastoid fluid. Cervical spine: ALIGNMENT: Trace anterolisthesis C3 on C4 and C4 on C5. BONE: Vertebral body heights are maintained. No aggressive osseous lesions. DEGENERATIVE: No significant focal degenerative changes. SOFT TISSUE: No significant abnormalities in the soft tissue of the neck. The visualized lung apices are clear. Carotid artery calcifications. IMPRESSION: No acute intracranial abnormality. No acute fracture or traumatic malalignment of the cervical spine.
--- NOTE | 2025-03-11 11:34 | RAD REPORT ---
EXAM: Chest Abd Pelvis Wo Con CLINICAL INDICATION: Female, 89 years old trauma, fall, right sided pain, elevated creatinine TECHNIQUE: CT chest, abdomen and pelvis was performed, without IV contrast, [facility]. Axial, sagittal and coronal reconstructions were obtained. One or more of the following dose reduction techniques were used: Automated exposure control, adjustment of the mA and/or kV according to the patient size, and/or iterative reconstruction. Unless otherwise specified, incidental findings do not require dedicated imaging follow-up. [id number]. COMPARISON: CT abdomen/pelvis 08/08/2024 FINDINGS: The lack of intravenous contrast limits the sensitivity of this exam for evaluation of solid visceral organs, vascular structures, and retroperitoneum. ---THORAX--- LOWER NECK AND CHEST WALL: Visualized thyroid gland and soft tissues are normal. MEDIASTINUM AND LYMPH NODES: No mediastinal mass or fluid collection. Normal size mediastinal, hilar, and axillary lymph nodes. Small hiatal hernia with thickened distal esophagus. THORACIC AORTA: No thoracic aortic aneurysm. Atherosclerotic changes are present. PULMONARY ARTERIES: Enlarged main pulmonary arteries could indicate pulmonary artery hypertension. Un able to evaluate for pulmonary emboli due to either protocol or lack of contrast. HEART: Mild cardiomegaly. Severe coronary artery calcifications.No significant pericardial effusion. Aortic valve and mitral annular calcifications. LUNGS AND AIRWAYS: Airways are clear. No evidence of airspace or interstitial process. No suspicious and/or stable pulmonary nodules. PLEURA: No pleural effusion. No pneumothorax. ---ABDOMEN/PELVIS--- UPPER GI: No significant abnormality. LIVER: No significant focal abnormality. GALLBLADDER/BILE DUCTS: Cholecystectomy. Moderate extrahepatic biliary ductal dilatation. This could be secondary to the post-cholecystectomy state. Recommend correlation with LFT's. If abnormal, consider MRCP for further evaluation. ? PANCREAS: No mass, ductal dilation, or marcelino-pancreatic fluid. SPLEEN: Unremarkable. ADRENALS: No adrenal masses. KIDNEYS AND URETERS: No hydronephrosis.Limited evaluation for renal lesions in the absence of IV cont rast. . Left upper pole renal cyst.No renal calculi.No ureteral calculi. ABDOMINAL AORTA AND OTHER VESSELS: Moderate atherosclerotic changes without aortic aneurysm. PERITONEUM: No abnormal free fluid. No free air. LYMPH NODES: No pathologic lymphadenopathy. ABDOMINAL WALL: Unremarkable SMALL BOWEL/COLON: Small bowel has normal course and caliber. No colonic wall thickening or pericolon ic inflammatory changes. URINARY BLADDER: Bladder gas which may be from instrumentation. Bladder stimulator. REPRODUCTIVE ORGANS: No pathologic process. ---COMBINED--- MUSCULOSKELETAL: Right shoulder arthroplasty. Acute versus subacute T12 compression fracture with mary jo roximately 20% loss of height anteriorly. No bony retropulsion. ADDITIONAL FINDINGS: None. IMPRESSION: Acute versus subacute T12 compression fracture with approximately 20% loss of height anteriorly. No o ther evidence of significant acute trauma.
--- NOTE | 2025-03-11 11:55 | EDPHYS ---
Physician Documentation [facility] Name: Kayleigh Cooney Age: 89 yrs Sex: Female : 1935 Arrival Date: 03/11/2025 Time: : Bed 14 Private MD: ED Physician Jay Floyd HPI: 03/11 09:33 This 89 yrs old Female presents to ER via Wheelchair with complaints of Fall rn Injury. 09:33 Patient reports fall a few days ago, fell onto right side, was trying to close the back rn jackson of her vehicle. Patient reports struck head and threw up once that day but felt it was just soreness so gave it some time. Patient still hurting so came in for evaluation today. Patient reports pain to right flank, back, head. Denies any injury to hips or pelvis. No extremity injury or pain. Does not take blood thinners. Patient reports most of pain is right flank and right lower quadrant abdominal pain.. Historical: - Allergies: 08:35 No Known Allergies; iw - PMHx: 08:35 Diverticulitis; Hypertension; iw - PSHx: 08:35 Bladder lift; diverticulosis SX; shoulder replacement; wrist FX; iw - Immunization history:: Adult Immunizations up to date. - Infectious Disease History:: Denies. - Social history:: Smoking status: Patient denies any tobacco usage or history of. - Family history:: not pertinent. - Hospitalizations: : No recent hospitalization is reported. ROS: 09:33 Constitutional: Negative for fever, chills, and weight loss, Neck: Negative for injury, rn pain, and swelling, Cardiovascular: Negative for chest pain, palpitations, and edema, Respiratory: Negative for shortness of breath, cough, wheezing, and pleuritic chest pain, Abdomen/GI: Positive for right flank pain and abdominal pain MS/Extremity: Negative for injury and deformity, Neuro: Negative for headache, weakness, numbness, tingling, and seizure, Exam: 09:33 Constitutional: This is a well developed, well nourished patient who is awake, alert, rn and in no acute distress. Ambulatory to room without assistance or difficulty Head/Face: Normocephalic, atraumatic. Neck: No midline cervical tenderness Chest/axilla: Mild tenderness inferior to right inferior ribs Cardiovascular: Regular rate and rhythm. No pulse deficits. Respiratory: Speaking full sentences, unlabored. No increased work of breathing, no retractions or nasal flaring. Abdomen/GI: Soft, mild right lower quadrant abdominal tenderness without hematoma or distention Back: No midline spinal tenderness MS/ Extremity: Pulses equal, no cyanosis. Neurovascular intact. Full, normal range of motion. Equal circumference. Neuro: Awake and alert, GCS 15 Vital Signs: 08:36 BP 198 / 82; Pulse 59; Resp 16; Temp 98; Pulse Ox 94% on R/A; Weight 68.04 kg; Height 5 iw ft. 0 in. ; 09:30 BP 185 / 65; Pulse 59; Resp 16; Pulse Ox 96% ; db 10:00 BP 185 / 55; Pulse 59; Resp 16; Pulse Ox 96% on R/A; db 12:00 BP 169 / 55; Pulse 58; Resp 18; Pulse Ox 98% on R/A; db 08:36 Body Mass Index 29.29 (68.04 kg, 152.4 cm) iw MDM: 08:27 Medical Screening Exam initiated rn 11:53 Differential diagnosis: closed head injury, contusion, fracture, sprain, strain. Data rn reviewed: vital signs, nurses notes, lab test result(s), radiologic studies, CT scan, and as a result, I will discharge patient. Independent interpretation of the following test(s) in the Emergency Department CT Scan: My interpretation is CT chest images negative for pneumothorax per my interpretation. Counseling: I had a detailed discussion with the patient and/or guardian regarding the historical points, exam findings, and any diagnostic results supporting the discharge/admit diagnosis, lab results, radiology results, the need for outpatient follow up, to return to the emergency department if symptoms worsen or persist or if there are any questions or concerns that arise at home. Response to treatment: the patient's symptoms have mildly improved after treatment, and as a result, I will discharge patient. Special discussion: I discussed with the patient/guardian in detail that at this point there is no indication for admission to the hospital. It is understood, however, that if the symptoms persist or worsen the patient needs to return immediately for re-evaluation. Based on the history and exam findings, there is no indication for further emergent testing or inpatient evaluation. I discussed with the patient/guardian the need to see the primary care provider for further evaluation of the symptoms. ED course: 20% T12 compression fracture identified on imaging, no other acute finding. Pain control. Will discharge home with as needed pain medication and PCP follow-up. I have personally reviewed all of the results, including but not limited to blood tests and imaging deemed necessary to safely discharge this patient at this time. All results given to and printed out for patient. I personally went over all the results with the patient and answered all questions. Patient will follow-up with PCP and or specialist as discussed. Return precautions given and understood. . 03/11 08:35 Order name: CBC with Diff; Complete Time: 10:09 rn 03/11 08:35 Order name: Basic Metabolic Panel; Complete Time: 10:36 rn 03/11 08:35 Order name: Protime (+inr); Complete Time: 10: rn 03/11 08:35 Order name: Ptt, Activated; Complete Time: 10: rn 03/11 08:35 Order name: CT Head C Spine; Complete Time: 11:40 rn 03/11 10:36 Order name: CT Chest Abdomen Pelvis W/O Contrast; Complete Time: 11:40 rn 03/11 08:35 Order name: IV Start; Complete Time: 09:33 rn Administered Medications: 09:25 Drug: Ondansetron IVP 4 mg IVP once; over 2 minutes Route: IVP; Site: right antecubital;db 12:02 Follow up: Response: No adverse reaction db 12:10 Drug: traMADol PO 50 mg PO once Route: PO; db Disposition Summary: 03/11/25 11:55 Discharge Ordered Notes: Location: Home rn Problem: new rn Symptoms: have improved rn Condition: Stable rn Diagnosis - Stable compression fracture T12 body, 20% rn Followup: rn - With: Private Physician - When: As needed - Reason: Recheck today's complaints, Re-evaluation by your physician Discharge Instructions: - Discharge Summary Sheet rn - Spinal Compression Fracture rn Forms: - Medication Reconciliation Form rn - Antibiotic per diem rn - Prescription Opioid Use rn - Patient Portal Instructions rn - Leadership Thank You Letter rn Prescriptions: - Tramadol 50 mg Oral Tablet - take 1 tablet ORAL route every 8 hours as needed; 12 tablet; Refills: 0, rn Product Selection Permitted Signatures: Dispatcher [employer] Lorenza Dillard RN RN iw Nieto, Roman, MD MD rn Benton Elizabeth, RN RN db Corrections: (The following items were deleted from the chart) 08:35 08:35 Head C Spine MPR Wo Con+CT.RAD.BRZ ordered. EDMS EDMS 08:35 08:35 Chest Abdomen Pelvis W Con+CT.RAD.BRZ ordered. EDMS EDMS 08:36 08:35 CBC+H.LAB.BRZ ordered. EDMS EDMS 08:36 08:35 BASIC METABOLIC PANEL+C.LAB.BRZ ordered. EDMS EDMS 08:36 08:35 PROTIME (+INR)+COAG.LAB.BRZ ordered. EDMS EDMS 08:36 08:35 PTT, ACTIVATED+COAG.LAB.BRZ ordered. EDMS EDMS
--- NOTE | 2025-03-11 11:55 | ER ---
Nurse's Notes [facility] Name: Kayleigh Cooney Age: 89 yrs Sex: Female : 1935 Arrival Date: 03/11/2025 Time: 08:17 Bed 14 Private MD: Diagnosis: Stable compression fracture T12 body, 20% Presentation: 03/11 08:32 Chief complaint: Patient states: fell on Wednesday while trying to close the back jackson of iw her vehicle , fell back on her right side, has pain to lower back and mid back and right side. Coronavirus screen: At this time, the client does not indicate any symptoms associated with coronavirus-19. Ebola Screen: No symptoms or risks identified at this time. Initial Sepsis Screen: Does the patient meet any 2 criteria? No. Patient's initial sepsis screen is negative. Does the patient have a suspected source of infection? No. Patient's initial sepsis screen is negative. Risk Assessment: Do you want to hurt yourself or someone else? Patient reports no desire to harm self or others. Onset of symptoms was March 09, 2025. 08:32 Method Of Arrival: Wheelchair 08:32 Acuity: WON 3 iw Historical: - Allergies: 08:35 No Known Allergies; iw - PMHx: 08:35 Diverticulitis; Hypertension; iw - PSHx: 08:35 Bladder lift; diverticulosis SX; shoulder replacement; wrist FX; iw - Immunization history:: Adult Immunizations up to date. - Infectious Disease History:: Denies. - Social history:: Smoking status: Patient denies any tobacco usage or history of. - Family history:: not pertinent. - Hospitalizations: : No recent hospitalization is reported. Screenin:16 [facility] ED Fall Risk Assessment (Adult) History of falling in the last 3 months, db including since admission Yes- single mechanical fall (1 pt) Confusion or Disorientation No (0 pts) Intoxicated or Sedated No (0 pts) Impaired Gait No (0 pts) Mobility Assist Device Used No (0 pt) Altered Elimination No (0 pt) Score/Fall Risk Level 0 - 2 = Low Risk Oriented to surroundings, Maintained a safe environment. Abuse screen: Denies threats or abuse. Denies injuries from another. Nutritional screening: No deficits noted. Tuberculosis screening: No symptoms or risk factors identified. Assessment: 09:00 Reassessment: Patient appears in no apparent distress at this time. Patient and/or db family updated on plan of care and expected duration. Pain level reassessed. Patient is alert, oriented x 3, equal unlabored respirations, skin warm/dry/pink. General: Appears in no apparent distress. comfortable, Behavior is calm, cooperative. Pain: Complains of pain in right mid back. Neuro: Level of Consciousness is awake, alert, obeys commands, Oriented to person, place, time, situation. Respiratory: Airway is patent Respiratory effort is even, unlabored, Respiratory pattern is regular, symmetrical. 12:14 Reassessment: Patient appears in no apparent distress at this time. Patient and/or db family updated on plan of care and expected duration. Pain level reassessed. Patient is alert, oriented x 3, equal unlabored respirations, skin warm/dry/pink. Vital Signs: 08:36 BP 198 / 82; Pulse 59; Resp 16; Temp 98; Pulse Ox 94% on R/A; Weight 68.04 kg; Height 5 iw ft. 0 in. ; 09:30 BP 185 / 65; Pulse 59; Resp 16; Pulse Ox 96% ; db 10:00 BP 185 / 55; Pulse 59; Resp 16; Pulse Ox 96% on R/A; db 12:00 BP 169 / 55; Pulse 58; Resp 18; Pulse Ox 98% on R/A; db 08:36 Body Mass Index 29.29 (68.04 kg, 152.4 cm) iw ED Course: 08:22 Patient arrived in ED. al6 08:27 Jay Floyd MD is Attending Physician. rn 08:35 Triage completed. iw 08:36 Arm band placed on. iw 08:37 Elizabeth Ferrell, RN is Primary Nurse. db 09:00 Missed attempt(s): 22 gauge in left forearm. Bleeding controlled, band aid applied, db catheter tip intact. 09:15 Missed attempt(s): 22 gauge in right wrist. Bleeding controlled, band aid applied, db catheter tip intact. 09:31 Accessed peripheral vein via ultrasound, utilizing dynamic ultrasound technique using ss 20G Nexia IV catheter ,sterile technique, per hospital protocol. Clean \T\ dry. Dressing intact. Good blood return. Flushes easily. 20 gauge in R FA US guided. 09:33 Protime (+inr) Sent. ss 09:33 Ptt, Activated Sent. ss 09:33 Basic Metabolic Panel Sent. ss 09:33 CBC with Diff Sent. ss 09:51 Radiology exam delayed due to lab results not completed at this time. (BUN/Creatinine). sm9 10:[address] via stretcher. db 10:49 Patient has correct armband on for positive identification. Bed in low position. Call db light in reach. Side rails up X 1. Pulse ox on. NIBP on. 10:59 CT Head C Spine In Process Unspecified. EDMS 10:59 CT Chest Abdomen Pelvis W/O Contrast In Process Unspecified. EDMS 12:14 Provided Education on: DISCHARGE. db 12:14 No provider procedures requiring assistance completed. IV discontinued, intact, db bleeding controlled, No redness/swelling at site. Administered Medications: 09:25 Drug: Ondansetron IVP 4 mg IVP once; over 2 minutes Route: IVP; Site: right antecubital;db 12:02 Follow up: Response: No adverse reaction db 12:10 Drug: traMADol PO 50 mg PO once Route: PO; db Medication: 09:34 VIS not applicable for this client. db Outcome: 11:55 Discharge ordered by . rn 12:14 Discharged to home via wheelchair, with family, db 12:14 Condition: stable 12:14 Discharge instructions given to patient, family, Instructed on discharge instructions, follow up and referral plans. Prescriptions given X 1, 12:15 Patient left the ED. db Signatures: Dispatcher [employer] Lorenza Dillard RN RN iw Nieto, Roman, MD MD rn Blanchard, Shelby, RN RN ss Benton, Danielle, RN RN db McGilbery, Sarah sm9 Idania De Leon6
[2025-03-11] MEDS ORDERED: TRAMADOL HCL 50 MG TAB ONE (12:06)
[2025-03-11 16:53] VITALS: TEMP 98
[2025-03-11 17:00] VITALS: BP 169/55; O2SAT 98
== END 2025-03-11 12:15 | disposition home or self-care (01) ==
LOC: ER 08:17
DX: S22.080A Wedge compression fracture of T11-T12 vertebra, initial encounter for closed fracture (principal); W18.30XA Fall on same level, unspecified, initial encounter
CPT/HCPCS: 85025; 80048; 36415; 85610; 85730; 70450; 71250; 72125; 74176; 96374; 99285; J2405